=== PATIENT | male | born 1970 | race Caucasian/White ===

== ENCOUNTER 2016-04-17 16:27 | Inpatient (IN) | payer BC ==
[2016-04-18] MEDS ORDERED: BISACODYL 10 MG SUPP PR PRN (16:48)
[2016-04-18] MEDS: ACETAMINOPHEN 325 MG TAB PO PRN (18:08)
--- NOTE | 2016-04-18 18:23 | GHP ---
POST ADMISSION PHYSICIAN EVALUATION AND REHABILITATION TREATMENT PLAN DATE OF ADMISSION: 04/18/2016 DATE OF EVALUATION: 04/18/2016. TIME OF EVALUATION: 1445. REFERRING FACILITY: [facility]. REFERRING PHYSICIAN: Dr. Bryson IMPAIRMENT GROUP: 1.2. DATE OF ONSET: 04/10/2016. 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 CONSULTING PHYSICIANS: He was seen in consultation by Cardiology, Dr. Barnes; Neurology, Dr. Garcia; the neurosurgery service. ETIOLOGIC DIAGNOSIS: Right body involvement (left brain). HISTORY OF PRESENT ILLNESS: The patient was found by his foster son at the bottom of the stairs at home, not able to move or talk. It was unknown how long he had been down. He had no recollection of what had happened. He was taken to [facility]. He had right hemiplegia and expressive aphasia. Brain imaging found a large left middle cerebral artery stroke. It was too late for thrombolytics or intravascular intervention. In the hospital, he had evaluation for etiology of the stroke. Transthoracic and transesophageal echocardiogram ruled out any cardiac abnormalities. Neurovascular imaging ruled out any arterial abnormalities, though the vertebral arteries were not able to be visualized. He had a hypercoagulable workup, which was negative. Given the size of the stroke, which involved the frontal, parietal, and temporal lobes, it was presumed to be embolic. He had a rn cardiac rehab implanted before he discharged from the hospital to evaluate for occult atrial fibrillation. He had brain edema with effacement of sulci, but no [id number] shift. He was followed by Neurosurgery and there was no indication for surgical intervention. He was maintained on hypertonic saline with a serum sodium maintained in the 150s to reduce brain edema. After several days this was liberalized. Other labs and studies in the hospital revealed normal renal function and electrolytes, normal liver function, and normal CBC. PRECAUTIONS: He is a fall risk and he has aspiration precautions. ACTIVE COMORBIDITIES: He has a tier 2 comorbidity of dysphagia, and a tier 3 comorbidity of hemiparesis. PAST MEDICAL HISTORY: 1. Hypothyroidism. 2. HIV. PAST SURGICAL HISTORY: He has not had any surgeries. PREHOSPITAL MEDICATIONS: He was taking levothyroxine 175 mcg p.o. daily, adenosine 400 mg p.o. daily, efavirenz 600 mg p.o. q.h.s., zidovudine 300 mg p.o. b.i.d. His reports that he had an undetectable viral load and a normal CD4 count. ADMISSION MEDICATIONS: 1. Aspirin 325 mg p.o. daily. 2. Atorvastatin 45 mg p.o. q.h.s. 3. Efavirenz 600 mg p.o. q.h.s. 4. Escitalopram 10 mg p.o. daily. 5. Levothyroxine 125 mcg p.o. daily. 6. Didanosine 400 mg p.o. daily. 7. Zidovudine 300 mg p.o. b.i.d. ALLERGIES: There are no known drug allergies. FAMILY HISTORY: Noncontributory. PSYCHOSOCIAL HISTORY: He is and lives with his . He is employed. He is a nonsmoker, a nondrinker, and was living a healthy lifestyle. He and his have foster children. REVIEW OF SYSTEMS: He reports blurred vision in his right eye. He reports some difficulty with swallowing and coughing at times after eating or drinking. He reports inability to move his right arm or right leg. He has sensation, but it is reduced on the right side. In particular, his reports that he felt the needle when a blood draw was done recently. He denies cough other than occasionally when eating. He denies dyspnea. He denies chest pain or palpitations. He denies nausea, vomiting, constipation, or diarrhea. He has urinary incontinence and is unaware of the urge to void and has been treated with a condom catheter. He denies joint pain or joint swelling. He denies skin rash or skin breakdown. Otherwise, a 10-point review of systems is negative. PHYSICAL EXAMINATION: VITALS: Not yet available in the chart. GENERAL: This is a well-nourished, well-developed man, appears his chronologic age, cooperative, and in no acute distress. HEENT: There is a slight right facial droop. Head is atraumatic and normocephalic. Extraocular movements are intact. Pupils are equal, round, and reactive to light. Mucous membranes are dry. There is erythema to the posterior hard palate and soft palate. Dentition is in good condition. He has an uncrowded airway of Mallampati class 1. There is no posterior oropharyngeal mucus. NECK: Supple. HEART: There is a regular rate and rhythm with no murmurs, rubs, or gallops. LUNGS: Clear to auscultation bilaterally. ABDOMEN: Soft, nontender, nondistended, with normoactive bowel sounds and no hepatosplenomegaly. EXTREMITIES: There is no cyanosis, clubbing, or edema. Radial and dorsalis pedis pulses are 2+ bilaterally. NEUROLOGIC: He is alert and oriented x3. Cranial nerves are intact other than right facial weakness and a slight right facial droop. He does not appear to have dysarthria. Motor: He has flaccid paralysis of the right upper and lower extremities. There is no increased tone. He has normal strength in the left upper and lower extremities. He has adequate core strength and is able to arise from supine to seated with minimal assistance. Sensation is intact to light touch on the left side of his body and is reduced but present, including present to double simultaneous stimulation on the right upper and lower extremities. He has a right lower quadrant visual field cut versus hemianopsia. He responds appropriately to commands and appears to have good comprehension. He has moderate to severe expressive aphasia with inability to complete sentences and inability to find words. He is not completely consistent with yes and no. CURRENT LEVEL OF FUNCTION PER THE PREADMISSION SCREEN: Regarding diet, feeding , and swallowing, he was on dysphagia 2 diet with thin liquids and he required supervision for grooming. He required moderate assistance for bathing. He needed assistance for dressing. He was dependent regarding toileting. He was able to use a bedside commode. For bed mobility, he required minimal assistance. For transfers, he required minimal assistance, but with 2 people for safety. He was being transferred by Reba lift. Regarding balance, he was able to sit on the edge of the bed with standby assistance. His endurance was poor. Regarding communication, he was noted to have severe aphasia. Regarding cognition, he was noted to follow simple commands. He needed tactile and verbal cues. He was alert and oriented x2. SAFETY PRECAUTIONS: He is a fall risk and an aspiration risk. IMPRESSION: Mr. Daniels is a 45-year-old man who suffered a large left middle cerebral artery cerebrovascular accident on 04/10/2016. As the time of the stroke was unknown, he was not considered to be in the time window for thrombolytics and there was no target for intravascular intervention. He had brain edema, but did not require surgery. This was successfully treated with hypertonic saline. He has aphasia, appears to be more so on the expressive than on the receptive side. He has comorbid HIV; however, it has been well controlled on HAART. He has hypothyroidism and is stable on thyroid supplementation. He is appropriate for inpatient rehabilitation, where he will benefit from physical therapy and occupational therapy to optimize his mobility and activities of daily living and speech and language pathology to advance to the least restrictive diet and optimize communication. Additionally, will need nursing care regarding bowel and bladder, fall risk, skin integrity, medication management, and education for the patient and his family, and he will require care from the physician regarding risk for DVT, risk for neurologic deterioration, and management of comorbid conditions. His goal is to return home with his family. For a safe discharge, it is expected that he will achieve supervision to modified independence with mobility , ADLs, cognition, swallowing, communication, and medication management. There will be neurologic education for the patient and his family. He will have therapy with physical therapy, occupational therapy, and speech and language pathology for 60 minutes each day for each discipline on 5-7 days of the week. His expected duration of stay is 3-4 weeks. It is anticipated that upon discharge he will continue to benefit from home health services, including speech and language pathology, a nurse's aide, occupational therapy, and physical therapy. ASSESSMENT AND PLAN: 1. Right hemiplegia following left middle cerebral artery cerebrovascular accident. Physical therapy and occupational therapy to optimize mobility and activities of daily living. He comes out of the hospital with a prescription for escitalopram. I will change this to fluoxetine 20 mg p.o. q. day in keeping with the protocol of the FLAME trial, which showed improved recovery of motor function in hemiplegic, strokes, with treatment with fluoxetine. 2. Dysphagia and expressive greater than receptive aphasia, to be assessed and treated per Speech and Language Pathology. 3. Human immunodeficiency virus, well controlled. Continue current medications. 4. Hypothyroidism with adequate supplementation. Continue current levothyroxine dose. 5. Dehydration with dry mucous membranes and erythema to the posterior hard palate and the soft palate. Encourage adequate hydration. Observe for improvement. 6. Unclear etiology of the stroke. He has a rn cardiac rehab. He has followup planned with stem sizer, Dr. Barnes, in 1 week, though this is likely only to check the status of his incision from the implantation of the rn cardiac rehab, and then has a followup also in 3 weeks which presumably is to evaluate for any occult atrial fibrillation. He is being treated with aspirin 325 mg p.o. q. day , as well as atorvastatin as stroke preventive. 7. DVT prophylaxis. He will be treated with enoxaparin 40 mg subcutaneous q. day until his mobility improves or sufficient time has passed since the stroke to have reduced risk of deep venous thrombosis. 8. Urinary incontinence. Continue condom catheter initially. He will have the rehabilitation bladder program with timed voiding q.2 hours and with ultrasound bladder scans to ensure complete voiding. It is hoped that he will recover continence and not need the condom catheter. 9. Right hemianopsia versus visual field cut. He will have further vision testing by occupational therapy. His subjective experience of blurred vision is most likely related to the cerebrovascular accident. The other possibility would be retinal involvement due to the didanosine. He will be observed for improvement. /[id number]/MODL MTDD
[2016-04-18] MEDS: ATORVASTATIN CALCIUM 40 MG TAB PO SCH (20:50)
[2016-04-18] MEDS: EFAVIRENZ 600 MG TAB PO SCH (20:51)
[2016-04-18] MEDS: ZIDOVUDINE 300 MG PO SCH (20:52)
[2016-04-18] MEDS ORDERED: ZIDOVUDINE 300 MG PO SCH (21:00)
[2016-04-18] MEDS ORDERED: EFAVIRENZ 600 MG TAB PO SCH (21:00)
[2016-04-19] MEDS: LEVOTHYROXINE 25 MCG TAB PO SCH (05:53)
[2016-04-19] MEDS: LEVOTHYROXINE 150 MCG TAB PO SCH (05:53)
[2016-04-19] MEDS: DIDANOSINE 400 MG PO SCH (05:54)
[2016-04-19] MEDS ORDERED: LEVOTHYROXINE 175 MCG TAB PO SCH (06:00)
[2016-04-19] MEDS ORDERED: DIDANOSINE 400 MG PO SCH (07:30)
[2016-04-19] MEDS: ASPIRIN 325 MG TAB PO SCH (09:41)
[2016-04-19] MEDS: ENOXAPARIN 40 MG/0.4 ML SYR SC SCH (09:41)
[2016-04-19] MEDS: FLUoxetine 20 MG CAP PO SCH (09:41)
[2016-04-19] MEDS: ZIDOVUDINE 300 MG PO SCH ×2 (09:42→20:25)
[2016-04-19] MEDS: SENNOSIDES 1 TAB PO PRN (09:48)
--- NOTE | 2016-04-19 10:23 | PDOREHIP ---
Admission [facility] - Admission - 3 Day Assessment Period Admission Date/Day 1: 04/18/16 Day 2: 04/19/16 Day 3: 04/20/16 - Active Diagnoses Comorbidities and Co-existing Conditions at Admission: [id number]. None of the Above - Skin Conditions Unhealed Pressure Ulcer (1 or more/Stage 1 or >)-Admission: 0. No
--- NOTE | 2016-04-19 10:23 | SOAPPROG ---
JOHN Progress Note Assessment/Plan: Assessment: 1. Right hemiplegia following left middle cerebral artery cerebrovascular accident. Physical therapy and occupational therapy to optimize mobility and activities of daily living. He comes out of the hospital with a prescription for escitalopram. I will change this to fluoxetine 20 mg p.o. q. day in keeping with the protocol of the FLAME trial, which showed improved recovery of motor function in hemiplegic, strokes, with treatment with fluoxetine. 2. Dysphagia and expressive greater than receptive aphasia, to be assessed and treated per Speech and Language Pathology. 3. Human immunodeficiency virus, well controlled. Continue current medications. 4. Hypothyroidism with adequate supplementation. Continue current levothyroxine dose. 5. Dehydration with dry mucous membranes and erythema to the posterior hard palate and the soft palate. Encourage adequate hydration. Observe for improvement. 6. Unclear etiology of the stroke. He has a plastic extruding machine operator. He has followup planned with district agent, Dr. Barnes, in 1 week, though this is likely only to check the status of his incision from the implantation of the plastic extruding machine operator, and then has a followup also in 3 weeks which presumably is to evaluate for any occult atrial fibrillation. He is being treated with aspirin 325 mg p.o. q. day , as well as atorvastatin as stroke preventive. 7. DVT prophylaxis. He will be treated with enoxaparin 40 mg subcutaneous q. day until his mobility improves or sufficient time has passed since the stroke to have reduced risk of deep venous thrombosis. 8. Urinary incontinence. Continue condom catheter initially. He will have the rehabilitation bladder program with timed voiding q.2 hours and with ultrasound bladder scans to ensure complete voiding. It is hoped that he will recover continence and not need the condom catheter. 9. Right hemianopsia versus visual field cut. He will have further vision testing by occupational therapy. His subjective experience of blurred vision is most likely related to the cerebrovascular accident. The other possibility would be retinal involvement due to the didanosine. He will be observed for improvement. Plan: 04/19/16 10:23 Objective: Vital Signs Temp Pulse Resp BP Pulse Ox 36.4 C 58 L 16 117/79 96 04/19/16 05:53 04/19/16 05:53 04/19/16 05:53 04/19/16 05:53 04/19/16 05:53 04/18/16 04/19/16 04/20/16 05:59 05:59 05:59 Intake Total 320 Output Total 1350 Balance -1030 ICD10 Worksheet Patient Problems: Problems Problem Status Onset Aphasia due to recent cerebrovascular accident (CVA) Acute Cerebrovascular accident (CVA) due to occlusion of left middle cerebral artery Acute Hemiplegia and hemiparesis following cerebral infarction affecting right dominant side Acute
--- NOTE | 2016-04-19 10:44 | SOAPPROG ---
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 Physical therapy and occupational therapy to optimize mobility and activities of daily living. Escitalopram started in hospital, changed on to fluoxetine 20 mg p.o. q. day in keeping with the protocol of the FLAME trial, which showed improved recovery of motor function in hemiplegic strokes. * Dysphagia and expressive greater than receptive aphasia, to be assessed and treated per Speech and Language Pathology. * Cough, productive, CXR c/w bronchitis, CBC with leukocytosis andf left shift. Treat with azithromycin 5 days. * Human immunodeficiency virus, well controlled. Continue current medications. * Hypothyroidism with adequate supplementation. Continue current levothyroxine dose. * Dehydration with dry mucous membranes and erythema to the posterior hard palate and the soft palate. Improving. Encourage adequate hydration. * Unclear etiology of the stroke. He has a athletic monitor. He has followup planned with personal injury law specialist, Dr. Barnes, in 1 week, though this is likely only to check the status of his incision from the implantation of the athletic monitor, and then has a followup also in 3 weeks which presumably is to evaluate for any occult atrial fibrillation. He is being treated with aspirin 325 mg p.o. q. day , as well as atorvastatin as stroke preventive. * DVT prophylaxis. He will be treated with enoxaparin 40 mg subcutaneous q. day until his mobility improves or sufficient time has passed since the stroke to have reduced risk of deep venous thrombosis. * Urinary incontinence. Continue condom catheter initially. PVR 110; unlikely overflow incontinence. Continue rehabilitation bladder program with timed voiding q.2 hours and with ultrasound bladder scans to ensure complete voiding. * Right hemianopsia versus visual field cut. He will have further vision testing by occupational therapy. His subjective experience of blurred vision is most likely related to the cerebrovascular accident. The other possibility would be retinal involvement due to the didanosine. He will be observed for improvement. 04/19/16 21:38 Subjective: C/O cough, +/-dyspnea. No fevers/chills. Feels thirsty. Objective: Vital Signs Temp Pulse Resp BP Pulse Ox 36.4 C 58 L 16 117/79 96 04/19/16 05:53 04/19/16 05:53 04/19/16 05:53 04/19/16 05:53 04/19/16 05:53 04/18/16 04/19/16 04/20/16 05:59 05:59 05:59 Intake Total 320 Output Total 1350 Balance -1030 Physical Exam - Physical Exam General Appearance: WD/WN, alert, no apparent distress EENT: other (MMs moist), No rhinorrhea, No pharyngeal erythema Respiratory: decreased breath sounds (Decreased RLL/RML), No crackles, No rhonchi, No wheezing Cardiac/Chest: regular rate, rhythm, No edema Skin: normal color, warm/dry Neuro/Psych: alert, normal mood/affect, aphasia (Expressive), facial droop ( Right side), motor weakness (RUE and RLE flaccid paralysis.) ICD10 Worksheet Patient Problems: Problems Problem Status Onset Aphasia due to recent cerebrovascular accident (CVA) Acute Cerebrovascular accident (CVA) due to occlusion of left middle cerebral artery Acute Hemiplegia and hemiparesis following cerebral infarction affecting right dominant side Acute
[2016-04-19 19:14] LABS: ALANINE AMINOTRANSFERASE 111 IU/L (21-72); ALBUMIN 4.1 g/dL (3.5-5.0); ALKALINE PHOSPHATASE 159 IU/L (38-126); ANION GAP 11 mEq/L (8-16); ASPARTATE AMINOTRANSFERASE 129 IU/L (17-59); BILIRUBIN,TOTAL 0.7 mg/dL (0.1-1.4); CALCIUM 9.2 mg/dL (8.5-10.4); CARBON DIOXIDE 27 mEq/l (22-31); CHLORIDE 100 mEq/L (97-110); CREATININE 0.7 mg/dL (0.7-1.3); GLOMERULAR FILTRATION RATE > 60; GLUCOSE 84 mg/dL (70-100); POTASSIUM 4.4 mEq/L (3.5-5.2); SODIUM 138 mEq/L (134-144); TOTAL PROTEIN 7.6 g/dL (6.3-8.2)
[2016-04-19 19:31] LABS: ABSOLUTE IMMATURE GRANULOCYTES 0.11 10^3/uL (0.00-0.10); ADD DIFF? NO; ADD MORPH? NO; ADD SCAN? NO; ATYPICAL LYMPHOCYTE FLAG 40 (0-99); FRAGMENT RBC FLAG 0 (0-99); HEMATOCRIT 43.5 % (40.0-51.0); HEMOGLOBIN 16.3 g/dL (13.7-17.5); LEFT SHIFT FLG 0 (0-99); MEAN CELL HEMOGLOBIN 38.3 pg (27.9-34.1); MEAN CELL VOLUME 102.1 fL (81.5-99.8); MEAN PLATELET VOLUME 10.7 fL (8.7-11.7); PLATELET CLUMPS FLAG 10 (0-99); PLATELET COUNT 299 10^3/uL (150-400); RED BLOOD CELL COUNT 4.26 10^6/uL (4.40-6.38); RED CELL DISTRIBUTION WIDTH 12.9 % (11.5-15.2)
[2016-04-19 19:37] LABS: LIPEMIA HEMOLYSIS FLAG 100 (0-99)
[2016-04-19 19:38] LABS: MEAN CELL HEMOGLOBIN CONCENTR. 37.5 g/dL (32.4-36.7)
[2016-04-19] MEDS: ATORVASTATIN CALCIUM 40 MG TAB PO SCH (20:25)
[2016-04-19] MEDS: EFAVIRENZ 600 MG TAB PO SCH (20:26)
[2016-04-19] MEDS ORDERED: AZITHROMYCIN 250 MG TAB PO ONE (21:31)
[2016-04-20] MEDS: LEVOTHYROXINE 150 MCG TAB PO SCH (05:51)
[2016-04-20] MEDS: LEVOTHYROXINE 25 MCG TAB PO SCH (05:51)
[2016-04-20] MEDS: DIDANOSINE 400 MG PO SCH (05:51)
[2016-04-20] MEDS: ACETAMINOPHEN 325 MG TAB PO PRN ×2 (08:43→15:16)
[2016-04-20] MEDS: AZITHROMYCIN 250 MG TAB PO SCH (08:43)
[2016-04-20] MEDS: FLUoxetine 20 MG CAP PO SCH (08:44)
--- NOTE | 2016-04-20 08:45 | SOAPPROG ---
SOAP Progress Note Assessment/Plan: Assessment: 45 yo M s/p large MCA CVA on 04/10/16 of unclear etiology: MEJIA and new tongue deviation to L this morning 04/20/16, not present on previous exams or per [employer]. Send to ED for head CT to r/o hemorrhagic transformation. Hold ASA and enoxaparin. 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 Physical therapy and occupational therapy to optimize mobility and activities of daily living. Escitalopram started in hospital, changed on to fluoxetine 20 mg p.o. q. day in keeping with the protocol of the FLAME trial, which showed improved recovery of motor function in hemiplegic strokes. * Dysphagia and expressive greater than receptive aphasia, to be assessed and treated per Speech and Language Pathology. * Cough, productive, CXR c/w bronchitis, CBC with leukocytosis andf left shift. Treat with azithromycin 5 days. * Human immunodeficiency virus, well controlled. Continue current medications. * Hypothyroidism with adequate supplementation. Continue current levothyroxine dose. * Dehydration with dry mucous membranes and erythema to the posterior hard palate and the soft palate. Improving. Encourage adequate hydration. * Unclear etiology of the stroke. He has a awake overnight monitor. He has followup planned with residential framing carpenter, Dr. Barnes, in 1 week, though this is likely only to check the status of his incision from the implantation of the awake overnight monitor, and then has a followup also in 3 weeks which presumably is to evaluate for any occult atrial fibrillation. He is being treated with aspirin 325 mg p.o. q. day , as well as atorvastatin as stroke preventive. * Transaminase elevation. Likely due to antiretrovirals, randy efavirenz and didanosine; not likely due to zidovudine. Mild, no change in medications indicated. * DVT prophylaxis. He will be treated with enoxaparin 40 mg subcutaneous q. day until his mobility improves or sufficient time has passed since the stroke to have reduced risk of deep venous thrombosis. * Urinary incontinence. Continue condom catheter initially. PVR 110; unlikely overflow incontinence. Continue rehabilitation bladder program with timed voiding q.2 hours and with ultrasound bladder scans to ensure complete voiding. * Right hemianopsia versus visual field cut. He will have further vision testing by occupational therapy. His subjective experience of blurred vision is most likely related to the cerebrovascular accident. The other possibility would be retinal involvement due to the didanosine. He will be observed for improvement. 04/20/16 08:48 Subjective: C/O MEJIA frontal, since last night. Vague on whether pounding or steady. No nausea. Noted by nurse this morning; nurse also noted tongue deviation. Objective: Vital Signs Temp Pulse Resp BP Pulse Ox 36.9 C 67 18 113/80 96 04/20/16 08:00 04/20/16 08:00 04/20/16 08:00 04/20/16 08:00 04/20/16 08:00 Laboratory Results 04/19/16 17:57 04/19/16 17:57 04/19/16 04/20/16 04/21/16 05:59 05:59 05:59 Intake Total 320 1000 Output Total 1350 2250 Balance -1030 -1250 Physical Exam - Physical Exam General Appearance: WD/WN, alert, no apparent distress Respiratory: No respiratory distress, No accessory muscle use Neuro/Psych: alert, normal mood/affect, abnormal hairspring studder II-XII (New tongue deviation to L.) ICD10 Worksheet Patient Problems: Problems Problem Status Onset Aphasia due to recent cerebrovascular accident (CVA) Acute Cerebrovascular accident (CVA) due to occlusion of left middle cerebral artery Acute Hemiplegia and hemiparesis following cerebral infarction affecting right dominant side Acute
[2016-04-20] MEDS: ENOXAPARIN 40 MG/0.4 ML SYR SC SCH (08:47)
[2016-04-20] MEDS: ASPIRIN 325 MG TAB PO SCH (08:47)
[2016-04-20] MEDS: ZIDOVUDINE 300 MG PO SCH ×3 (08:48→22:01)
[2016-04-20] MEDS: EFAVIRENZ 600 MG TAB PO SCH (22:00)
[2016-04-20] MEDS: ATORVASTATIN CALCIUM 40 MG TAB PO SCH (22:01)
[2016-04-21] MEDS: LEVOTHYROXINE 125 MCG TAB PO SCH (05:47)
[2016-04-21] MEDS: DIDANOSINE 400 MG PO SCH (05:56)
[2016-04-21 08:51] LABS: HEMATOCRIT 40.5 % (40.0-51.0)
[2016-04-21] MEDS: ENOXAPARIN 40 MG/0.4 ML SYR SC SCH (09:31)
[2016-04-21] MEDS: ASPIRIN 325 MG TAB PO SCH (09:31)
[2016-04-21] MEDS: AZITHROMYCIN 250 MG TAB PO SCH (09:31)
[2016-04-21] MEDS: FLUoxetine 20 MG CAP PO SCH (09:32)
[2016-04-21] MEDS: ZIDOVUDINE 300 MG PO SCH ×2 (09:32→20:56)
--- NOTE | 2016-04-21 10:54 | SOAPPROG ---
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 Physical therapy and occupational therapy to optimize mobility and activities of daily living. Escitalopram started in hospital, changed on to fluoxetine 20 mg p.o. q. day in keeping with the protocol of the FLAME trial, which showed improved recovery of motor function in hemiplegic strokes. * Heamcult stool was negative. H/H today was 15/40.5 compared to 16.3/43.5 0n . Pulse rate is slightly increased but not tachycardic. BP 99/62 compared to 115/66 yesterday am. ? dilutional vs non -GI bleed. Recheck H/H in am. * Dysphagia and expressive greater than receptive aphasia, to be assessed and treated per Speech and Language Pathology. He is being advanced to level [address] * Cough, productive, CXR c/w bronchitis, CBC with leukocytosis andf left shift. Treat with azithromycin 5 days. * Human immunodeficiency virus, well controlled. Continue current medications. * Hypothyroidism with adequate supplementation. Continue current levothyroxine dose. * Dehydration with dry mucous membranes and erythema to the posterior hard palate and the soft palate. Improving. Encourage adequate hydration. * Unclear etiology of the stroke. He has a residential monitor. He has followup planned with broiler chef or cook, Dr. Barnes, in 1 week, though this is likely only to check the status of his incision from the implantation of the residential monitor, and then has a followup also in 3 weeks which presumably is to evaluate for any occult atrial fibrillation. He is being treated with aspirin 325 mg p.o. q. day , as well as atorvastatin as stroke preventive. * Transaminase elevation. Likely due to antiretrovirals, randy efavirenz and didanosine; not likely due to zidovudine. Mild, no change in medications indicated. * DVT prophylaxis. He will be treated with enoxaparin 40 mg subcutaneous q. day until his mobility improves or sufficient time has passed since the stroke to have reduced risk of deep venous thrombosis. * Urinary incontinence. Continue condom catheter initially. PVR 110; unlikely overflow incontinence. Continue rehabilitation bladder program with timed voiding q.2 hours and with ultrasound bladder scans to ensure complete voiding. * Right hemianopsia versus visual field cut. He will have further vision testing by occupational therapy. His subjective experience of blurred vision is most likely related to the cerebrovascular accident. The other possibility would be retinal involvement due to the didanosine. He will be observed for improvement. Plan: 04/21/16 10:58 Subjective: No complaints per patient or nursing staff. Objective: Vital Signs Temp Pulse Resp BP Pulse Ox 36.4 C 75 16 99/62 L 99 04/21/16 08:00 04/21/16 08:00 04/21/16 08:00 04/21/16 08:00 04/21/16 08:00 Laboratory Results 04/21/16 06:30 04/19/16 17:57 04/20/16 04/21/16 04/22/16 05:59 05:59 05:59 Intake Total 1000 1166 534 Output Total 2250 Balance -1250 1166 534 Physical Exam - Physical Exam General Appearance: alert, no apparent distress EENT: No scleral icterus (R), No scleral icterus (L) Neck: supple, normal inspection Respiratory: lungs clear, normal breath sounds Cardiac/Chest: No edema, No JVD Abdomen: normal bowel sounds, non-tender, soft Skin: normal color Extremities: No normal range of motion, No calf tenderness (Right shoulder subluxation, tender to palpation. ), No swelling, No Marcie's sign Neuro/Psych: motor weakness, depressed affect (Dense right hemiplegia. Expressive greater than receptive aphasia. ), No normal mood/affect ICD10 Worksheet Patient Problems: Problems Problem Status Onset Aphasia due to recent cerebrovascular accident (CVA) Acute Cerebrovascular accident (CVA) due to occlusion of left middle cerebral artery Acute Hemiplegia and hemiparesis following cerebral infarction affecting right dominant side Acute
[2016-04-21] MEDS: EFAVIRENZ 600 MG TAB PO SCH (20:56)
[2016-04-21] MEDS: ATORVASTATIN CALCIUM 40 MG TAB PO SCH (20:56)
[2016-04-22] MEDS: LEVOTHYROXINE 25 MCG TAB PO SCH (05:33)
[2016-04-22] MEDS: LEVOTHYROXINE 150 MCG TAB PO SCH (05:34)
[2016-04-22] MEDS: DIDANOSINE 400 MG PO SCH (05:34)
[2016-04-22] MEDS: ZIDOVUDINE 300 MG PO SCH ×2 (09:04→20:45)
[2016-04-22] MEDS: FLUoxetine 20 MG CAP PO SCH (09:06)
[2016-04-22] MEDS: ASPIRIN 325 MG TAB PO SCH (09:06)
[2016-04-22] MEDS: AZITHROMYCIN 250 MG TAB PO SCH (09:07)
--- NOTE | 2016-04-22 10:02 | SOAPPROG ---
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 Physical therapy and occupational therapy to optimize mobility and activities of daily living. Escitalopram started in hospital, changed on to fluoxetine 20 mg p.o. q. day in keeping with the protocol of the FLAME trial, which showed improved recovery of motor function in hemiplegic strokes. * Heamcult stool was negative. H/H 04/21 was 15/40.5 compared to 16.3/43.5 0n 04/20. Pulse rate is 86 BP 118/70. ? dilutional vs non -GI bleed. Recheck H/H in am. * Dysphagia and expressive greater than receptive aphasia, to be assessed and treated per Speech and Language Pathology. He is being advanced to level [address] * Cough, productive, CXR c/w bronchitis, CBC with leukocytosis andf left shift. Treat with azithromycin 5 days. * Human immunodeficiency virus, well controlled. Continue current medications. * Hypothyroidism with adequate supplementation. Continue current levothyroxine dose. * Dehydration with dry mucous membranes and erythema to the posterior hard palate and the soft palate. Will begin IVF 1000 cc 75 cc/hr * Unclear etiology of the stroke. He has a front desk monitor. He has followup planned with pickle cutter, Dr. Barnes, in 1 week, though this is likely only to check the status of his incision from the implantation of the front desk monitor, and then has a followup also in 3 weeks which presumably is to evaluate for any occult atrial fibrillation. He is being treated with aspirin 325 mg p.o. q. day , as well as atorvastatin as stroke preventive. * Transaminase elevation. Likely due to antiretrovirals, randy efavirenz and didanosine; not likely due to zidovudine. Mild, no change in medications indicated. * DVT prophylaxis. He will be treated with enoxaparin 40 mg subcutaneous q. day until his mobility improves or sufficient time has passed since the stroke to have reduced risk of deep venous thrombosis. * Urinary incontinence. Continue condom catheter initially. Continue rehabilitation bladder program with timed voiding q.2 hours and with ultrasound bladder scans to ensure complete voiding. * Right hemianopsia versus visual field cut. He will have further vision testing by occupational therapy. His subjective experience of blurred vision is most likely related to the cerebrovascular accident. The other possibility would be retinal involvement due to the didanosine. He will be observed for improvement. Plan: 04/21/16 10:58 04/22/16 10:03 Subjective: No complaints per patient or nursing staff. Objective: Vital Signs Temp Pulse Resp BP Pulse Ox 36.4 C 67 16 118/70 95 04/22/16 06:55 04/22/16 06:55 04/22/16 06:55 04/22/16 06:55 04/22/16 06:55 Laboratory Results 04/21/16 06:30 04/19/16 17:57 04/21/16 04/22/16 04/23/16 05:59 05:59 05:59 Intake Total 1166 784 Output Total 1100 Balance 1166 -316 Physical Exam - Physical Exam General Appearance: alert, no apparent distress EENT: other (mucuosa dry) Neck: non-tender, full range of motion Respiratory: lungs clear, No crackles Abdomen: normal bowel sounds, non-tender, soft Skin: normal color, warm/dry Extremities: No calf tenderness (Neurological exam unchanged from previous; dense RUE and RLE hemiplegia) ICD10 Worksheet Patient Problems: Problems Problem Status Onset Aphasia due to recent cerebrovascular accident (CVA) Acute Cerebrovascular accident (CVA) due to occlusion of left middle cerebral artery Acute Hemiplegia and hemiparesis following cerebral infarction affecting right dominant side Acute Headache Acute
[2016-04-22] MEDS: ENOXAPARIN 40 MG/0.4 ML SYR SC SCH (10:25)
[2016-04-22] MEDS: NS 1,000 ML IV SCH ×2 (10:26→22:47)
[2016-04-22 10:38] LABS: ABSOLUTE IMMATURE GRANULOCYTES 0.07 10^3/uL (0.00-0.10); ADD DIFF? NO; ADD MORPH? NO; ADD SCAN? NO; ATYPICAL LYMPHOCYTE FLAG 30 (0-99); FRAGMENT RBC FLAG 0 (0-99); HEMATOCRIT 39.8 % (40.0-51.0); HEMOGLOBIN 14.6 g/dL (13.7-17.5); LEFT SHIFT FLG 0 (0-99); LIPEMIA HEMOLYSIS FLAG 90 (0-99); MEAN CELL HEMOGLOBIN 39.5 pg (27.9-34.1); MEAN CELL HEMOGLOBIN CONCENTR. 36.7 g/dL (32.4-36.7); MEAN CELL VOLUME 107.6 fL (81.5-99.8); MEAN PLATELET VOLUME 10.4 fL (8.7-11.7); PLATELET CLUMPS FLAG 10 (0-99); PLATELET COUNT 326 10^3/uL (150-400); RED CELL DISTRIBUTION WIDTH 13.4 % (11.5-15.2)
[2016-04-22] MEDS: EFAVIRENZ 600 MG TAB PO SCH (20:44)
[2016-04-22] MEDS: ATORVASTATIN CALCIUM 40 MG TAB PO SCH (20:46)
[2016-04-23] MEDS: DIDANOSINE 400 MG PO SCH (05:58)
[2016-04-23] MEDS: LEVOTHYROXINE 125 MCG TAB PO SCH (05:58)
[2016-04-23] MEDS: ZIDOVUDINE 300 MG PO SCH ×2 (08:46→20:32)
[2016-04-23] MEDS: AZITHROMYCIN 250 MG TAB PO SCH (08:48)
[2016-04-23] MEDS: FLUoxetine 20 MG CAP PO SCH (08:49)
[2016-04-23] MEDS: ASPIRIN 325 MG TAB PO SCH (08:49)
[2016-04-23] MEDS: ENOXAPARIN 40 MG/0.4 ML SYR SC SCH (08:50)
--- NOTE | 2016-04-23 09:50 | SOAPPROG ---
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 Physical therapy and occupational therapy to optimize mobility and activities of daily living. Escitalopram started in hospital, changed on to fluoxetine 20 mg p.o. q. day in keeping with the protocol of the FLAME trial, which showed improved recovery of motor function in hemiplegic strokes. * MEJIA and increased R tongue deviation 04/20/16: head CT w/out bleed. * Dysphagia and expressive greater than receptive aphasia, to be assessed and treated per Speech and Language Pathology. Able to swallow pills, including efavirenz capsule. * Cough, productive, CXR c/w bronchitis, CBC with leukocytosis and left shift. Treat with azithromycin 5 days. Leukocytosis resolved 04/22/16.' * Anemia, macrocytic. Recheck 3 days 04/26/16 with B12, folate, retics. * Human immunodeficiency virus, well controlled. Continue current medications. * Hypothyroidism with adequate supplementation. Continue current levothyroxine dose. * Dehydration with dry mucous membranes and erythema to the posterior hard palate and the soft palate. Improving. Encourage adequate hydration. * Unclear etiology of the stroke. He has a property assessment monitor. He has followup planned with yield engineer, Dr. Barnes, in 1 week, though this is likely only to check the status of his incision from the implantation of the property assessment monitor, and then has a followup also in 3 weeks which presumably is to evaluate for any occult atrial fibrillation. He is being treated with aspirin 325 mg p.o. q. day , as well as atorvastatin as stroke preventive. * Transaminase elevation. Likely due to antiretrovirals, randy efavirenz and didanosine; not likely due to zidovudine. Mild, no change in medications indicated. Hep C neg. * DVT prophylaxis. He will be treated with enoxaparin 40 mg subcutaneous q. day until his mobility improves or sufficient time has passed since the stroke to have reduced risk of deep venous thrombosis. * Urinary incontinence. Continue condom catheter initially. PVR 110; unlikely overflow incontinence. Continue rehabilitation bladder program with timed voiding q.2 hours and with ultrasound bladder scans to ensure complete voiding. * Right hemianopsia versus visual field cut. He will have further vision testing by occupational therapy. His subjective experience of blurred vision is most likely related to the cerebrovascular accident. The other possibility would be retinal involvement due to the didanosine. He will be observed for improvement. 04/23/16 12:05 Subjective: No complaints. Working wit TEAROOM HOSTESS over breakfast. Able to swallow pills. Denies f/c, dyspnea/cough. Objective: Vital Signs Temp Pulse Resp BP Pulse Ox 36.6 C 57 L 16 102/64 98 04/23/16 07:11 04/23/16 07:11 04/23/16 07:11 04/23/16 07:11 04/23/16 07:11 Laboratory Results 04/22/16 08:00 04/19/16 17:57 04/22/16 04/23/16 04/24/16 05:59 05:59 05:59 Intake Total 784 1821 600 Output Total 1100 2300 Balance -316 -256 600 Physical Exam - Physical Exam General Appearance: WD/WN, alert, no apparent distress Respiratory: No respiratory distress, No accessory muscle use Skin: normal color, warm/dry Neuro/Psych: alert, normal mood/affect, motor weakness (RUE flaccid paralysis) ICD10 Worksheet Patient Problems: Problems Problem Status Onset Aphasia due to recent cerebrovascular accident (CVA) Acute Cerebrovascular accident (CVA) due to occlusion of left middle cerebral artery Acute Hemiplegia and hemiparesis following cerebral infarction affecting right dominant side Acute Headache Acute
[2016-04-23] MEDS: EFAVIRENZ 600 MG TAB PO SCH (20:08)
[2016-04-23] MEDS: ATORVASTATIN CALCIUM 40 MG TAB PO SCH (20:08)
[2016-04-24] MEDS: LEVOTHYROXINE 25 MCG TAB PO SCH (05:57)
[2016-04-24] MEDS: LEVOTHYROXINE 150 MCG TAB PO SCH (05:58)
[2016-04-24] MEDS: DIDANOSINE 400 MG PO SCH (05:59)
[2016-04-24] MEDS: FLUoxetine 20 MG CAP PO SCH (09:21)
[2016-04-24] MEDS: ENOXAPARIN 40 MG/0.4 ML SYR SC SCH (09:21)
[2016-04-24] MEDS: ASPIRIN 325 MG TAB PO SCH (09:21)
[2016-04-24] MEDS: ZIDOVUDINE 300 MG PO SCH ×2 (09:22→20:44)
[2016-04-24 13:58] LABS: HIV-1 RNA PCR < 20.00 copy/mL (<20)
[2016-04-24] MEDS ORDERED: PREPARATION H 51 GM CRTUBE PR PRN (14:54)
--- NOTE | 2016-04-24 15:19 | SOAPPROG ---
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 Initial FIM 30 on 04/20/16. Good L strength; able to stand on L leg; min to mod A transferring. Physical therapy and occupational therapy to optimize mobility and activities of daily living. Escitalopram started in hospital, changed on 04/18/16 to fluoxetine 20 mg p.o. q. day in keeping with the protocol of the FLAME trial, which showed improved recovery of motor function in hemiplegic strokes. * MEJIA and increased R tongue deviation 04/20/16: head CT w/out bleed. * Dysphagia and expressive greater than receptive aphasia. Continue Speech and Language Pathology. Able to swallow pills, including efavirenz capsule. * Cough, productive, CXR c/w bronchitis, CBC with leukocytosis and left shift. Treat with azithromycin 5 days. Leukocytosis resolved 04/22/16. * Anemia, macrocytic. Recheck 3 days 04/26/16 with B12, folate, retics. * Human immunodeficiency virus, well controlled. Continue current medications. * Hypothyroidism with adequate supplementation. Continue current levothyroxine dose. * Dehydration with dry mucous membranes and erythema to the posterior hard palate and the soft palate. Resolved. Encourage adequate hydration. * Unclear etiology of the stroke. He has a bus driver/monitor. He has followup planned with dashboard developer, Dr. Barnes, in 1 week, though this is likely only to check the status of his incision from the implantation of the bus driver/monitor, and then has a followup also in 3 weeks which presumably is to evaluate for any occult atrial fibrillation. He is being treated with aspirin 325 mg p.o. q. day , as well as atorvastatin as stroke preventive. * Transaminase elevation. Likely due to antiretrovirals, randy efavirenz and didanosine; not likely due to zidovudine. Mild, no change in medications indicated. Hep C neg. * DVT prophylaxis. He will be treated with enoxaparin 40 mg subcutaneous q. day until his mobility improves or sufficient time has passed since the stroke to have reduced risk of deep venous thrombosis. * Urinary incontinence. Continue condom catheter initially. PVR 110; unlikely overflow incontinence. Continue rehabilitation bladder program with timed voiding q.2 hours and with ultrasound bladder scans to ensure complete voiding. * Right hemianopsia versus visual field cut. He will have further vision testing by occupational therapy. His subjective experience of blurred vision is most likely related to the cerebrovascular accident. The other possibility would be retinal involvement due to the didanosine. He will be observed for improvement. Unclear if he will become ambulatory or if goal will be to optimize function from wheelchair level. Many stairs in the house. Expect LOS 4 - 6 weeks. 04/24/16 15:19 Subjective: No complaints. Denies pain, f/c,cough/dyspnea. Objective: Vital Signs Temp Pulse Resp BP Pulse Ox 37.0 C 62 14 101/58 L 96 04/24/16 06:20 04/24/16 06:20 04/24/16 06:20 04/24/16 06:20 04/24/16 06:20 Laboratory Results 04/22/16 08:00 04/19/16 17:57 04/23/16 04/24/16 04/25/16 05:59 05:59 05:59 Intake Total 1821 1072 1100 Output Total 2300 500 1150 Balance -479 572 -50 Physical Exam - Physical Exam General Appearance: WD/WN, alert, no apparent distress Respiratory: No respiratory distress, No accessory muscle use Cardiac/Chest: No edema Skin: normal color, warm/dry Neuro/Psych: alert, normal mood/affect, aphasia (Expressive), motor weakness ( RUE & RLE hemiplegia. Mild flexor tome R hamstring.) ICD10 Worksheet Patient Problems: Problems Problem Status Onset Aphasia due to recent cerebrovascular accident (CVA) Acute Cerebrovascular accident (CVA) due to occlusion of left middle cerebral artery Acute Hemiplegia and hemiparesis following cerebral infarction affecting right dominant side Acute Headache Acute
[2016-04-24] MEDS: POLYETHYLENE GLYCOL 3350 17 GM PKT PO SCH (15:36)
[2016-04-24] MEDS: SENNOSIDES 1 TAB PO PRN (15:36)
[2016-04-24] MEDS: EFAVIRENZ 600 MG TAB PO SCH (20:43)
[2016-04-24] MEDS: ATORVASTATIN CALCIUM 40 MG TAB PO SCH (20:45)
[2016-04-25] MEDS: LEVOTHYROXINE 125 MCG TAB PO SCH (06:07)
[2016-04-25] MEDS: DIDANOSINE 400 MG PO SCH (06:08)
[2016-04-25] MEDS: ASPIRIN 325 MG TAB PO SCH (09:23)
[2016-04-25] MEDS: POLYETHYLENE GLYCOL 3350 17 GM PKT PO SCH (09:23)
[2016-04-25] MEDS: FLUoxetine 20 MG CAP PO SCH (09:23)
[2016-04-25] MEDS: ENOXAPARIN 40 MG/0.4 ML SYR SC SCH (09:23)
[2016-04-25] MEDS: ZIDOVUDINE 300 MG PO SCH ×2 (09:24→20:07)
--- NOTE | 2016-04-25 13:13 | SOAPPROG ---
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 Initial FIM 30 on 04/20/16; improved to 49 on 04/25/16. Good L strength ; able to stand on L leg; min to mod A transferring. Dressing SBA to min A. Poor carry-over of techniques. Continue physical therapy and occupational therapy to optimize mobility and activities of daily living. Escitalopram started in hospital, changed on 04/18/16 to fluoxetine 20 mg p.o. q. day in keeping with the protocol of the FLAME trial, which showed improved recovery of motor function in hemiplegic strokes. * MEJIA and increased R tongue deviation 04/20/16: head CT w/out bleed. * Dysphagia and expressive greater than receptive aphasia. On regular texture diet. Expressive aphasia is severe; receptive is moderate. Continue Speech and Language Pathology. Able to swallow pills, including efavirenz capsule. * Urinary incontinence. Continue condom catheter at night. PVR 36; unlikely overflow incontinence. Continue rehabilitation bladder program with timed voiding q.2 hours and with ultrasound bladder scans to ensure complete voiding. Check UA. * Cough, productive, CXR c/w bronchitis, CBC with leukocytosis and left shift. Treated with azithromycin 5 days. Cough is resolved. * Anemia, macrocytic. Recheck 3 days 04/26/16 with B12, folate, retics. * Human immunodeficiency virus, well controlled. Continue current medications. * Hypothyroidism with adequate supplementation. Continue current levothyroxine dose. * Dehydration with dry mucous membranes and erythema to the posterior hard palate and the soft palate. Resolved after IV hydration 04/22/16. Encourage adequate PO hydration. * Unclear etiology of the stroke. He has a environmental monitoring technician. He has followup planned with validation consultant, Dr. Barnes, in 1 week, though this is likely only to check the status of his incision from the implantation of the environmental monitoring technician, and then has a followup also in 3 weeks which presumably is to evaluate for any occult atrial fibrillation. He is being treated with aspirin 325 mg p.o. q. day , as well as atorvastatin as stroke preventive. * Transaminase elevation. Likely due to antiretrovirals, randy efavirenz and didanosine; not likely due to zidovudine. Mild, no change in medications indicated. Hep C neg. * DVT prophylaxis. He will be treated with enoxaparin 40 mg subcutaneous q. day until his mobility improves or sufficient time has passed since the stroke to have reduced risk of deep venous thrombosis. * Right hemianopsia versus visual field cut. He will have further vision testing by occupational therapy. His subjective experience of blurred vision is most likely related to the cerebrovascular accident. The other possibility would be retinal involvement due to the didanosine. He will be observed for improvement. Attended staffing, 15 min. D/W csae mgmt, nursing, PT, OT, RESERVATIONS AGENT. Expect 4 - 6 week LOS, with tentative discharge 05/31/16. 04/25/16 13:08 Subjective: No complaints. Nursing has noted continued bladder incontinence,. He calls appropriately but has urgency. He had an episode of RLE clonus in the shower with OT and became panicked. Objective: Vital Signs Temp Pulse Resp BP Pulse Ox 36.8 C 66 15 114/74 95 04/25/16 06:24 04/25/16 06:24 04/25/16 06:24 04/25/16 06:24 04/25/16 06:24 Laboratory Results 04/22/16 08:00 04/19/16 17:57 04/24/16 04/25/16 04/26/16 05:59 05:59 05:59 Intake Total 1072 2200 354 Output Total 500 1950 400 Balance 572 250 -46 - Time Spent With Patient Time Spent With Patient: Greater than 35 minutes floor time today, including more than 50% of time in coordination of care during staffing, and counseling patient. Physical Exam - Physical Exam General Appearance: WD/WN, alert, no apparent distress Respiratory: No respiratory distress, No accessory muscle use Skin: normal color, warm/dry Neuro/Psych: alert, normal mood/affect, aphasia, motor weakness (RUE & RLE flaccid paralysis) ICD10 Worksheet Patient Problems: Problems Problem Status Onset Aphasia due to recent cerebrovascular accident (CVA) Acute Cerebrovascular accident (CVA) due to occlusion of left middle cerebral artery Acute Hemiplegia and hemiparesis following cerebral infarction affecting right dominant side Acute Headache Acute
[2016-04-25] MEDS: ATORVASTATIN CALCIUM 40 MG TAB PO SCH (20:06)
[2016-04-25] MEDS: EFAVIRENZ 600 MG TAB PO SCH (20:07)
[2016-04-25 20:20] LABS: COLOR YELLOW; LEUKOCYTE ESTERASE,URINE NEGATIVE (NEGATIVE); NITRITE,URINE NEGATIVE (NEGATIVE)
[2016-04-26] MEDS: LEVOTHYROXINE 150 MCG TAB PO SCH (05:05)
[2016-04-26] MEDS: LEVOTHYROXINE 25 MCG TAB PO SCH (05:05)
[2016-04-26] MEDS: DIDANOSINE 400 MG PO SCH (05:07)
[2016-04-26] MEDS: ZIDOVUDINE 300 MG PO SCH ×2 (09:06→19:59)
[2016-04-26] MEDS: ENOXAPARIN 40 MG/0.4 ML SYR SC SCH (09:07)
[2016-04-26] MEDS: FLUoxetine 20 MG CAP PO SCH (09:07)
[2016-04-26] MEDS: ASPIRIN 325 MG TAB PO SCH (09:07)
[2016-04-26] MEDS: SENNOSIDES 1 TAB PO PRN (09:07)
[2016-04-26] MEDS: POLYETHYLENE GLYCOL 3350 17 GM PKT PO SCH (09:07)
[2016-04-26 09:34] LABS: % IMMATURE GRANULYOCYTES 0.4 % (0.0-1.1); ABSOLUTE IMMATURE GRANULOCYTES 0.03 10^3/uL (0.00-0.10); ADD DIFF? NO; ADD MORPH? NO; ADD SCAN? NO; ATYPICAL LYMPHOCYTE FLAG 20 (0-99); FRAGMENT RBC FLAG 10 (0-99); HEMOGLOBIN 14.4 g/dL (13.7-17.5); LEFT SHIFT FLG 0 (0-99); LIPEMIA HEMOLYSIS FLAG 90 (0-99); MEAN CELL HEMOGLOBIN 39.2 pg (27.9-34.1); MEAN PLATELET VOLUME 10.2 fL (8.7-11.7); PLATELET CLUMPS FLAG 0 (0-99); PLATELET COUNT 369 10^3/uL (150-400); RED BLOOD CELL COUNT 3.67 10^6/uL (4.40-6.38); RED CELL DISTRIBUTION WIDTH 13.3 % (11.5-15.2)
[2016-04-26 10:56] LABS: FOLATE SERUM 8.31 ng/mL (2.80 - >20.00)
[2016-04-26 12:34] LABS: HCV QT RNA PCR < 1 IU/mL (<15)
--- NOTE | 2016-04-26 13:33 | SOAPPROG ---
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 Initial FIM 30 on 04/20/16; improved to 49 on 04/25/16. Good L strength ; able to stand on L leg; min to mod A transferring. Dressing SBA to min A. Poor carry-over of techniques. Continue physical therapy and occupational therapy to optimize mobility and activities of daily living. Escitalopram started in hospital, changed on 04/18/16 to fluoxetine 20 mg p.o. q. day in keeping with the protocol of the FLAME trial, which showed improved recovery of motor function in hemiplegic strokes. * MEJIA and increased R tongue deviation 04/20/16: head CT w/out bleed. * Dysphagia and expressive greater than receptive aphasia. On regular texture diet. Expressive aphasia is severe; receptive is moderate. Continue Speech and Language Pathology. Able to swallow pills, including efavirenz capsule. * Urinary incontinence. Continue condom catheter at night. PVRs low; unlikely overflow incontinence. Large bladder volumes prevoiding. Continue rehabilitation bladder program with timed voiding q.2 hours and with ultrasound bladder scans to ensure complete voiding. UA wnl 04/25/16. * Cough, productive, CXR c/w bronchitis, CBC with leukocytosis and left shift. Treated with azithromycin 5 days. Cough is resolved. * Anemia, macrocytic. Improved 04/26/16 with normal B12, folate, retics. Still markedly macrocytic, due to HIV meds? * Human immunodeficiency virus, well controlled. Continue current medications. * Hypothyroidism with adequate supplementation. Continue current levothyroxine dose. * Dehydration with dry mucous membranes and erythema to the posterior hard palate and the soft palate. Resolved after IV hydration 04/22/16. Encourage adequate PO hydration. * Unclear etiology of the stroke. He has a monitor tech. He has followup planned with tip cutter, Dr. Barnes 3 - 4 weeks after implantation on 04/18/16 to evaluate for any occult atrial fibrillation. Called Dr. Barnes's office and they will call back to schedule. He is being treated with aspirin 325 mg p.o. q. day, as well as atorvastatin as stroke preventive. * Transaminase elevation. Likely due to antiretrovirals, randy efavirenz and didanosine; not likely due to zidovudine. Mild, no change in medications indicated. Hep C neg. * DVT prophylaxis. He will be treated with enoxaparin 40 mg subcutaneous q. day until his mobility improves or sufficient time has passed since the stroke to have reduced risk of deep venous thrombosis. * Right hemianopsia versus visual field cut. He will have further vision testing by occupational therapy. His subjective experience of blurred vision is most likely related to the cerebrovascular accident. The other possibility would be retinal involvement due to the didanosine. He will be observed for improvement. Expect 4 - 6 week LOS, with tentative discharge 05/31/16. 04/26/16 13:35 Subjective: Was dizzy this morning after prolonged standing with PT. Not orthostatic. Has had large urine output, bladder volumes into 600s, minimal residual. Getting initial return of motor function RLE. Objective: Vital Signs Temp Pulse Resp BP Pulse Ox 36.4 C 65 16 114/71 94 04/26/16 05:28 04/26/16 05:28 04/26/16 05:28 04/26/16 05:28 04/26/16 05:28 Laboratory Results 04/26/16 05:35 04/19/16 17:57 04/25/16 04/26/16 04/27/16 05:59 05:59 05:59 Intake Total 2200 1054 440 Output Total 1950 1900 800 Balance 250 846 -360 Physical Exam - Physical Exam General Appearance: WD/WN, alert, no apparent distress, thin Respiratory: No respiratory distress, No accessory muscle use Skin: normal color, warm/dry Neuro/Psych: alert, normal mood/affect, motor weakness (Working on sit to stand with PT with some use of RLE. RUE flaccid paralysis.) ICD10 Worksheet Patient Problems: Problems Problem Status Onset Aphasia due to recent cerebrovascular accident (CVA) Acute Cerebrovascular accident (CVA) due to occlusion of left middle cerebral artery Acute Hemiplegia and hemiparesis following cerebral infarction affecting right dominant side Acute Headache Acute
--- NOTE | 2016-04-26 18:47 | SOAPPROG ---
SOAP Progress Note Assessment/Plan: Assessment: Acupuncture services were requested post-stroke by Dr. Oviedo. This patient has no movement in his R arm and is aphasic. He seems cognitively aware and is able to answer yes and no questions. I asked him to point to the part of his body that was "the most frustrating". He pointed to his R hand. There is no movement or motor control. Treatment: L side scalp acupuncture: Seech I area Speech II area x 3 Du 20-23 Auricular: Bilateral BFA for PEER TUTOR: Cingular [place] 2 Rosas Men [place] Left side: HT 9 Estrellita Well for acute stroke, reduce cerebral inflammation. PC 9 Estrellita Well for acute stroke, reduce cerebral inflammation. GASTON 11 Estrellita Well for acute stroke, reduce cerebral inflammation. LI [address] meridian, mirrors Speech I area/ST 8 (temporal). Ling Gu Relax the LB Da Stacy Relax the LB HT 8 Balance sleep and wake, relax the tongue. HT 5 Tx apashia HT 4, 7 Balance GB, relax the shoulders HT 3 He Se, Balance GB, KI HT 3-8 Balances GB and mirror Speech II area (parietal). GASTON 5 Resolve Phlegm, Balance BL meridian GASTON 9 Balance BL meridian, decrease tension in flexion and extension, base of skull/occiput ST 36 Increase Qi and blood GB 34 Empirical point to relax tendons GB 35-39 Decrease shoulder, head, and neck tension, balance GB Note: no points done on ankle or feet due to compression stockings. Patient had a visitor before the treatment had started. I asked him if he had had a lot of visitors and if he wanted them. "Yes" to the first question, "no" to the latter. Relayed this information to his nurse to discuss management of visitors with his partner. Plan: The best frequency to treat the symptoms of stroke is daily. The best window of time is three weeks to three months. I will discuss this with his providers and care givers. My recommendations is a minimum of two times per week with needles retained 45 minutes - 1 hour each time. 04/26/16 18:26 Objective: Vital Signs Temp Pulse Resp BP Pulse Ox 36.4 C 65 16 114/71 94 04/26/16 05:28 04/26/16 05:28 04/26/16 05:28 04/26/16 05:28 04/26/16 05:28 Laboratory Results 04/26/16 05:35 04/19/16 17:57 04/25/16 04/26/16 04/27/16 05:59 05:59 05:59 Intake Total 2200 1294 440 Output Total 9207 7090 6906 Balance 139 -956 -1110 ICD10 Worksheet Patient Problems: Problems Problem Status Onset Aphasia due to recent cerebrovascular accident (CVA) Acute Cerebrovascular accident (CVA) due to occlusion of left middle cerebral artery Acute Hemiplegia and hemiparesis following cerebral infarction affecting right dominant side Acute Headache Acute
[2016-04-26] MEDS: ATORVASTATIN CALCIUM 40 MG TAB PO SCH (19:57)
[2016-04-26] MEDS: EFAVIRENZ 600 MG TAB PO SCH (19:58)
[2016-04-26] MEDS: NYSTATIN POWDER 15 GM BTL TP SCH (20:06)
[2016-04-27] MEDS: LEVOTHYROXINE 125 MCG TAB PO SCH (06:21)
[2016-04-27] MEDS: DIDANOSINE 400 MG PO SCH (06:21)
[2016-04-27] MEDS: ZIDOVUDINE 300 MG PO SCH ×2 (08:48→20:04)
[2016-04-27] MEDS: NYSTATIN POWDER 15 GM BTL TP SCH ×3 (08:48→20:03)
[2016-04-27] MEDS: ENOXAPARIN 40 MG/0.4 ML SYR SC SCH (08:48)
[2016-04-27] MEDS: SENNOSIDES 1 TAB PO PRN (08:48)
[2016-04-27] MEDS: ASPIRIN 325 MG TAB PO SCH (08:48)
[2016-04-27] MEDS: POLYETHYLENE GLYCOL 3350 17 GM PKT PO SCH (08:48)
[2016-04-27] MEDS: FLUoxetine 20 MG CAP PO SCH (08:49)
[2016-04-27] MEDS ORDERED: GABAPENTIN 300 MG CAP PO PRN ×2 (10:04→10:29)
--- NOTE | 2016-04-27 10:17 | SOAPPROG ---
SOAP Progress Note Assessment/Plan: Assessment: 45 yo M s/p large MCA CVA on 04/10/16 of unclear etiology. Impairments in mobility, self care, speech and communication. 04/27/2016 he endorsed R sided tingling which is somewhat painful, interfering with sleep. OK with Gabapentin on as PRN, not interested in a standing dose for now. All issues new to this provider today. 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 Initial FIM 30 on 04/20/16; improved to 49 on 04/25/16. Good L strength ; able to stand on L leg; min to mod A transferring. Dressing SBA to min A. Poor carry-over of techniques. Continue physical therapy and occupational therapy to optimize mobility and activities of daily living. Escitalopram started in hospital, changed on 04/18/16 to fluoxetine 20 mg p.o. q. day in keeping with the protocol of the FLAME trial, which showed improved recovery of motor function in hemiplegic strokes. * Dysphagia and expressive greater than receptive aphasia. On regular texture diet. Expressive aphasia is severe; receptive is moderate. Continue Speech and Language Pathology. Able to swallow pills, including efavirenz capsule. * Urinary incontinence. Continue condom catheter at night. PVRs low; unlikely overflow incontinence. Large bladder volumes prevoiding. Continue rehabilitation bladder program with timed voiding q.2 hours and with ultrasound bladder scans to ensure complete voiding. UA wnl 04/25/16. * Anemia, macrocytic. Improved 04/26/16 with normal B12, folate, retics. Still markedly macrocytic, due to HIV meds? Stable/ Resolved: * MEJIA and increased R tongue deviation 04/20/16: head CT w/out bleed. * Cough, productive, CXR c/w bronchitis, CBC with leukocytosis and left shift. Treated with azithromycin 5 days. Cough is resolved. * Human immunodeficiency virus, well controlled. Continue current medications. * Hypothyroidism with adequate supplementation. Continue current levothyroxine dose. * Dehydration with dry mucous membranes and erythema to the posterior hard palate and the soft palate. Resolved after IV hydration 04/22/16. Encourage adequate PO hydration. * Unclear etiology of the stroke. He has a cardiac monitor technician. He has followup planned with piano mechanic apprentice, Dr. Barnes 3 - 4 weeks after implantation on 04/18/16 to evaluate for any occult atrial fibrillation. Called Dr. Barnes's office and they will call back to schedule. He is being treated with aspirin 325 mg p.o. q. day, as well as atorvastatin as stroke preventive. * Transaminase elevation. Likely due to antiretrovirals, randy efavirenz and didanosine; not likely due to zidovudine. Mild, no change in medications indicated. Hep C neg. * DVT prophylaxis. He will be treated with enoxaparin 40 mg subcutaneous q. day until his mobility improves or sufficient time has passed since the stroke to have reduced risk of deep venous thrombosis. * Right hemianopsia versus visual field cut. He will have further vision testing by occupational therapy. His subjective experience of blurred vision is most likely related to the cerebrovascular accident. The other possibility would be retinal involvement due to the didanosine. He will be observed for improvement. Expect 4 - 6 week LOS, with tentative discharge 05/31/16. 04/27/16 10:13 Subjective: CC: Right sided pain NO acute events overnight. with reliable yes/no he endorses right sided tingling that interferes with sleep, getting somewhat worse as time goes on. Otherwise no sleep or pain issues. No issues interfering with therapies. No new numbness or weakness. Objective: Vital Signs Temp Pulse Resp BP Pulse Ox 36.6 C 64 16 114/72 94 04/27/16 06:28 04/27/16 06:28 04/27/16 06:28 04/27/16 06:28 04/27/16 06:28 Laboratory Results 04/26/16 05:35 04/19/16 17:57 04/26/16 04/27/16 04/28/16 05:59 05:59 05:59 Intake Total 8007 676 576 Output Total 2577 9275 Balance -147 -8064 274 Physical Exam - Physical Exam General Appearance: alert, no apparent distress EENT: No scleral icterus (R), No scleral icterus (L) Respiratory: No respiratory distress, No accessory muscle use Cardiac/Chest: regular rate, rhythm Skin: normal color, warm/dry Extremities: No pedal edema, No swelling Neuro/Psych: alert, normal mood/affect, motor weakness (Right simran), speech abnormalities (reliable yes/no nonverbal, but poor verbalization) ICD10 Worksheet Patient Problems: Problems Problem Status Onset Aphasia due to recent cerebrovascular accident (CVA) Acute Cerebrovascular accident (CVA) due to occlusion of left middle cerebral artery Acute Hemiplegia and hemiparesis following cerebral infarction affecting right dominant side Acute Neuropathic pain Acute Headache Acute - ICD10 Problem Qualifiers (1) Neuropathic pain
[2016-04-27] MEDS: ATORVASTATIN CALCIUM 40 MG TAB PO SCH (20:02)
[2016-04-27] MEDS: EFAVIRENZ 600 MG TAB PO SCH (20:04)
[2016-04-28] MEDS: LEVOTHYROXINE 150 MCG TAB PO SCH (06:11)
[2016-04-28] MEDS: LEVOTHYROXINE 25 MCG TAB PO SCH (06:11)
[2016-04-28] MEDS: DIDANOSINE 400 MG PO SCH (06:13)
[2016-04-28] MEDS: ENOXAPARIN 40 MG/0.4 ML SYR SC SCH (08:56)
[2016-04-28] MEDS: FLUoxetine 20 MG CAP PO SCH (08:56)
[2016-04-28] MEDS: ACETAMINOPHEN 325 MG TAB PO PRN (08:56)
[2016-04-28] MEDS: ASPIRIN 325 MG TAB PO SCH (08:56)
[2016-04-28] MEDS: ZIDOVUDINE 300 MG PO SCH ×2 (08:57→20:06)
[2016-04-28] MEDS: POLYETHYLENE GLYCOL 3350 17 GM PKT PO SCH (08:57)
[2016-04-28] MEDS: NYSTATIN POWDER 15 GM BTL TP SCH ×3 (08:57→20:07)
[2016-04-28] MEDS: SENNOSIDES 1 TAB PO PRN (08:57)
--- NOTE | 2016-04-28 15:28 | SOAPPROG ---
SOAP Progress Note Assessment/Plan: 45 yo M s/p large MCA CVA on 04/10/16 of unclear etiology. Impairments in mobility, self care, speech and communication. 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 Initial FIM 30 on 04/20/16; improved to 49 on 04/25/16. Good L strength ; able to stand on L leg; min to mod A transferring. Dressing SBA to min A. Poor carry-over of techniques. Continue physical therapy and occupational therapy to optimize mobility and activities of daily living. Escitalopram started in hospital, changed on 04/18/16 to fluoxetine 20 mg p.o. q. day in keeping with the protocol of the FLAME trial, which showed improved recovery of motor function in hemiplegic strokes. * Dysphagia and expressive greater than receptive aphasia. On regular texture diet. Expressive aphasia is severe; receptive is moderate. Continue Speech and Language Pathology. Able to swallow pills, including efavirenz capsule. * Urinary incontinence. Continue condom catheter at night. PVRs low; unlikely overflow incontinence. Large bladder volumes prevoiding. Continue rehabilitation bladder program with timed voiding q.2 hours and with ultrasound bladder scans to ensure complete voiding. UA wnl 04/25/16. * Anemia, macrocytic. Improved 04/26/16 with normal B12, folate, retics. Still markedly macrocytic, due to HIV meds? Stable/ Resolved: * MEJIA and increased R tongue deviation 04/20/16: head CT w/out bleed. * Cough, productive, CXR c/w bronchitis, CBC with leukocytosis and left shift. Treated with azithromycin 5 days. Cough is resolved. * Human immunodeficiency virus, well controlled. Continue current medications. * Hypothyroidism with adequate supplementation. Continue current levothyroxine dose. * Dehydration with dry mucous membranes and erythema to the posterior hard palate and the soft palate. Resolved after IV hydration 04/22/16. Encourage adequate PO hydration. * Unclear etiology of the stroke. He has a property assessment monitor. He has followup planned with tailings man, Dr. Barnes 3 - 4 weeks after implantation on 04/18/16 to evaluate for any occult atrial fibrillation. Called Dr. Barnes's office and they will call back to schedule. He is being treated with aspirin 325 mg p.o. q. day, as well as atorvastatin as stroke preventive. * Transaminase elevation. Likely due to antiretrovirals, randy efavirenz and didanosine; not likely due to zidovudine. Mild, no change in medications indicated. Hep C neg. * DVT prophylaxis. He will be treated with enoxaparin 40 mg subcutaneous q. day until his mobility improves or sufficient time has passed since the stroke to have reduced risk of deep venous thrombosis. * Right hemianopsia versus visual field cut. He will have further vision testing by occupational therapy. His subjective experience of blurred vision is most likely related to the cerebrovascular accident. The other possibility would be retinal involvement due to the didanosine. He will be observed for improvement. Expect 4 - 6 week LOS, with tentative discharge 05/31/16. Subjective: No events. No complaints today. Denies pain or MEJIA. Objective: Vital Signs Temp Pulse Resp BP Pulse Ox 36.7 C 68 16 109/66 95 04/28/16 06:19 04/28/16 06:19 04/28/16 06:19 04/28/16 06:19 04/28/16 06:19 Laboratory Results 04/26/16 05:35 04/19/16 17:57 04/27/16 04/28/16 04/29/16 05:59 05:59 06:59 Intake Total 676 1076 720 Output Total 2500 3000 501 Balance -3159 -0638 219 - Pending Discharge Pending Discharge Within 24 Hours: No Pending Discharge Within 48 Hours: No Physical Exam - Physical Exam General Appearance: alert, no apparent distress Neck: full range of motion Respiratory: lungs clear, normal breath sounds Cardiac/Chest: regular rate, rhythm Abdomen: non-tender, soft Skin: warm/dry Neuro/Psych: alert, normal mood/affect, aphasia (expressive, +anomia, non repetitive), motor weakness (left hemiplegia, flaccid with evolving spasticity) ICD10 Worksheet Patient Problems: Problems Problem Status Onset Aphasia due to recent cerebrovascular accident (CVA) Acute Cerebrovascular accident (CVA) due to occlusion of left middle cerebral artery Acute Hemiplegia and hemiparesis following cerebral infarction affecting right dominant side Acute Neuropathic pain Acute Headache Acute
[2016-04-28] MEDS: ATORVASTATIN CALCIUM 40 MG TAB PO SCH (20:06)
[2016-04-28] MEDS: EFAVIRENZ 600 MG TAB PO SCH (20:07)
[2016-04-29] MEDS: LEVOTHYROXINE 125 MCG TAB PO SCH (06:11)
[2016-04-29] MEDS: DIDANOSINE 400 MG PO SCH (06:12)
[2016-04-29] MEDS: ASPIRIN 325 MG TAB PO SCH (08:50)
[2016-04-29] MEDS: FLUoxetine 20 MG CAP PO SCH (08:50)
[2016-04-29] MEDS: ENOXAPARIN 40 MG/0.4 ML SYR SC SCH (08:50)
[2016-04-29] MEDS: POLYETHYLENE GLYCOL 3350 17 GM PKT PO SCH (08:50)
[2016-04-29] MEDS: NYSTATIN POWDER 15 GM BTL TP SCH ×3 (09:40→20:39)
[2016-04-29] MEDS: ZIDOVUDINE 300 MG PO SCH ×2 (09:41→20:38)
--- NOTE | 2016-04-29 10:28 | SOAPPROG ---
SOAP Progress Note Assessment/Plan: 45 yo M s/p large MCA CVA on 04/10/16 of unclear etiology. Impairments in mobility, self care, speech and communication. 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 Initial FIM 30 on 04/20/16; improved to 49 on 04/25/16. Good L strength ; able to stand on L leg; min to mod A transferring. Dressing SBA to min A. Poor carry-over of techniques. Continue physical therapy and occupational therapy to optimize mobility and activities of daily living. Escitalopram started in hospital, changed on 04/18/16 to fluoxetine 20 mg p.o. q. day in keeping with the protocol of the FLAME trial, which showed improved recovery of motor function in hemiplegic strokes. * Dysphagia and expressive greater than receptive aphasia. On regular texture diet. Expressive aphasia is severe; receptive is moderate. Continue Speech and Language Pathology. Able to swallow pills, including efavirenz capsule. * Urinary incontinence. Continue condom catheter at night. PVRs low; unlikely overflow incontinence. Large bladder volumes prevoiding. Continue rehabilitation bladder program with timed voiding q.2 hours and with ultrasound bladder scans to ensure complete voiding. UA wnl 04/25/16. * Anemia, macrocytic. Improved 04/26/16 with normal B12, folate, retics. Still markedly macrocytic, due to HIV meds? Stable/ Resolved: * MEJIA and increased R tongue deviation 04/20/16: head CT w/out bleed. * Cough, productive, CXR c/w bronchitis, CBC with leukocytosis and left shift. Treated with azithromycin 5 days. Cough is resolved. * Human immunodeficiency virus, well controlled. Continue current medications. * Hypothyroidism with adequate supplementation. Continue current levothyroxine dose. * Dehydration with dry mucous membranes and erythema to the posterior hard palate and the soft palate. Resolved after IV hydration 04/22/16. Encourage adequate PO hydration. * Unclear etiology of the stroke. He has a court monitor. He has followup planned with picker operator, Dr. Barnes 3 - 4 weeks after implantation on 04/18/16 to evaluate for any occult atrial fibrillation. Called Dr. Barnes's office and they will call back to schedule. He is being treated with aspirin 325 mg p.o. q. day, as well as atorvastatin as stroke preventive. * Transaminase elevation. Likely due to antiretrovirals, randy efavirenz and didanosine; not likely due to zidovudine. Mild, no change in medications indicated. Hep C neg. * DVT prophylaxis. He will be treated with enoxaparin 40 mg subcutaneous q. day until his mobility improves or sufficient time has passed since the stroke to have reduced risk of deep venous thrombosis. * Right hemianopsia versus visual field cut. He will have further vision testing by occupational therapy. His subjective experience of blurred vision is most likely related to the cerebrovascular accident. The other possibility would be retinal involvement due to the didanosine. He will be observed for improvement. Expect 4 - 6 week LOS, with tentative discharge 05/31/16. Subjective: No events. No complaints this a.m. Denies pain or MEJIA. Objective: Vital Signs Temp Pulse Resp BP Pulse Ox 36.9 C 66 16 100/58 L 96 04/29/16 08:29 04/29/16 08:29 04/29/16 08:29 04/29/16 08:29 04/29/16 08:29 Laboratory Results 04/26/16 05:35 04/19/16 17:57 04/28/16 04/29/16 04/30/16 04:59 05:59 05:59 Intake Total Output Total Balance - Pending Discharge Pending Discharge Within 24 Hours: No Pending Discharge Within 48 Hours: No Physical Exam - Physical Exam General Appearance: alert, no apparent distress Neck: supple Respiratory: normal breath sounds, No respiratory distress Cardiac/Chest: regular rate, rhythm Abdomen: non-tender, soft Skin: normal color Neuro/Psych: alert, normal mood/affect, aphasia (motor), motor weakness (right simran) ICD10 Worksheet Patient Problems: Problems Problem Status Onset Aphasia due to recent cerebrovascular accident (CVA) Acute Cerebrovascular accident (CVA) due to occlusion of left middle cerebral artery Acute Hemiplegia and hemiparesis following cerebral infarction affecting right dominant side Acute Neuropathic pain Acute Headache Acute
[2016-04-29] MEDS: EFAVIRENZ 600 MG TAB PO SCH (20:37)
[2016-04-29] MEDS: ATORVASTATIN CALCIUM 40 MG TAB PO SCH (20:38)
[2016-04-30] MEDS: LEVOTHYROXINE 150 MCG TAB PO SCH (06:49)
[2016-04-30] MEDS: LEVOTHYROXINE 25 MCG TAB PO SCH (06:49)
[2016-04-30] MEDS: DIDANOSINE 400 MG PO SCH (06:51)
[2016-04-30] MEDS: POLYETHYLENE GLYCOL 3350 17 GM PKT PO SCH (12:36)
[2016-04-30] MEDS: ZIDOVUDINE 300 MG PO SCH ×2 (12:36→20:14)
[2016-04-30] MEDS: ASPIRIN 325 MG TAB PO SCH (12:38)
[2016-04-30] MEDS: ENOXAPARIN 40 MG/0.4 ML SYR SC SCH (12:38)
[2016-04-30] MEDS: FLUoxetine 20 MG CAP PO SCH (12:38)
[2016-04-30] MEDS: SENNOSIDES 1 TAB PO PRN (12:42)
[2016-04-30] MEDS: NYSTATIN POWDER 15 GM BTL TP SCH ×3 (12:43→21:34)
--- NOTE | 2016-04-30 15:32 | SOAPPROG ---
SOAP Progress Note Assessment/Plan: Assessment/Plan: 45 yo M s/p large MCA CVA on 04/10/16 of unclear etiology. Impairments in mobility, self care, speech and communication. 04/30 no new issues, medically stable. Continuing with plan below. 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 Initial FIM 30 on 04/20/16; improved to 49 on 04/25/16. Good L strength ; able to stand on L leg; min to mod A transferring. Dressing SBA to min A. Poor carry-over of techniques. Continue physical therapy and occupational therapy to optimize mobility and activities of daily living. Escitalopram started in hospital, changed on 04/18/16 to fluoxetine 20 mg p.o. q. day in keeping with the protocol of the FLAME trial, which showed improved recovery of motor function in hemiplegic strokes. * Dysphagia and expressive greater than receptive aphasia. On regular texture diet. Expressive aphasia is severe; receptive is moderate. Continue Speech and Language Pathology. Able to swallow pills, including efavirenz capsule. * Urinary incontinence. Continue condom catheter at night. PVRs low; unlikely overflow incontinence. Large bladder volumes prevoiding. Continue rehabilitation bladder program with timed voiding q.2 hours and with ultrasound bladder scans to ensure complete voiding. UA wnl 04/25/16. * Anemia, macrocytic. Improved 04/26/16 with normal B12, folate, retics. Still markedly macrocytic, due to HIV meds? Stable/ Resolved: * MEJIA and increased R tongue deviation 04/20/16: head CT w/out bleed. * Cough, productive, CXR c/w bronchitis, CBC with leukocytosis and left shift. Treated with azithromycin 5 days. Cough is resolved. * Human immunodeficiency virus, well controlled. Continue current medications. * Hypothyroidism with adequate supplementation. Continue current levothyroxine dose. * Dehydration with dry mucous membranes and erythema to the posterior hard palate and the soft palate. Resolved after IV hydration 04/22/16. Encourage adequate PO hydration. * Unclear etiology of the stroke. He has a radiographer cardiac catheterization. He has followup planned with corporate legal assistant, Dr. Barnes 3 - 4 weeks after implantation on 04/18/16 to evaluate for any occult atrial fibrillation. Called Dr. Barnes's office and they will call back to schedule. He is being treated with aspirin 325 mg p.o. q. day, as well as atorvastatin as stroke preventive. * Transaminase elevation. Likely due to antiretrovirals, randy efavirenz and didanosine; not likely due to zidovudine. Mild, no change in medications indicated. Hep C neg. * DVT prophylaxis. He will be treated with enoxaparin 40 mg subcutaneous q. day until his mobility improves or sufficient time has passed since the stroke to have reduced risk of deep venous thrombosis. * Right hemianopsia versus visual field cut. He will have further vision testing by occupational therapy. His subjective experience of blurred vision is most likely related to the cerebrovascular accident. The other possibility would be retinal involvement due to the didanosine. He will be observed for improvement. Expect 4 - 6 week LOS, with tentative discharge 05/31/16. Subjective: CC: Neurological stability, rehab progress No acute events overnight. Participating well with therapies. No pain, sleeping well. No new numbness, tingling or weakness. Objective: Vital Signs Temp Pulse Resp BP Pulse Ox 36.3 C 82 14 108/70 97 04/30/16 07:12 04/30/16 12:33 04/30/16 12:33 04/30/16 12:33 04/30/16 07:12 Laboratory Results 04/26/16 05:35 04/19/16 17:57 04/29/16 04/30/16 05/01/16 05:59 05:59 05:59 Intake Total 1184 472 Output Total 900 Balance 1184 -428 Physical Exam - Physical Exam General Appearance: alert, no apparent distress Respiratory: No respiratory distress, No accessory muscle use Cardiac/Chest: regular rate, rhythm, No edema Neuro/Psych: alert, aphasia ICD10 Worksheet Patient Problems: Problems Problem Status Onset Aphasia due to recent cerebrovascular accident (CVA) Acute Cerebrovascular accident (CVA) due to occlusion of left middle cerebral artery Acute Hemiplegia and hemiparesis following cerebral infarction affecting right dominant side Acute Neuropathic pain Acute Headache Acute - ICD10 Problem Qualifiers (1) Neuropathic pain
[2016-04-30] MEDS: ATORVASTATIN CALCIUM 40 MG TAB PO SCH (20:14)
[2016-04-30] MEDS: EFAVIRENZ 600 MG TAB PO SCH (20:15)
[2016-05-01] MEDS: LEVOTHYROXINE 125 MCG TAB PO SCH (06:34)
[2016-05-01] MEDS: DIDANOSINE 400 MG PO SCH ×2 (06:35→20:42)
[2016-05-01] MEDS: ENOXAPARIN 40 MG/0.4 ML SYR SC SCH (09:36)
[2016-05-01] MEDS: ZIDOVUDINE 300 MG PO SCH ×2 (09:37→20:42)
[2016-05-01] MEDS: SENNOSIDES 1 TAB PO PRN (09:38)
[2016-05-01] MEDS: NYSTATIN POWDER 15 GM BTL TP SCH ×3 (09:38→20:44)
[2016-05-01] MEDS: ASPIRIN 325 MG TAB PO SCH (09:38)
[2016-05-01] MEDS: FLUoxetine 20 MG CAP PO SCH (09:38)
[2016-05-01] MEDS: POLYETHYLENE GLYCOL 3350 17 GM PKT PO SCH (09:38)
--- NOTE | 2016-05-01 14:49 | SOAPPROG ---
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 Initial FIM 30 on 04/20/16; improved to 49 on 04/25/16. Has subsequently been able to ambulate with PT. Good L strength; able to stand on L leg; min to mod A transferring. Dressing SBA to min A. Poor carry-over of techniques. Continue physical therapy and occupational therapy to optimize mobility and activities of daily living. Escitalopram started in hospital, changed on 04/18/16 to fluoxetine 20 mg p.o. q. day in keeping with the protocol of the FLAME trial, which showed improved recovery of motor function in hemiplegic strokes. * MEJIA and increased R tongue deviation 04/20/16: head CT w/out bleed. * Dysphagia and expressive greater than receptive aphasia. On regular texture diet. Expressive aphasia is severe; receptive is moderate. Continue Speech and Language Pathology. Able to swallow pills, including efavirenz capsule. * Urinary incontinence. Continue condom catheter at night. PVRs low; unlikely overflow incontinence. Large bladder volumes prevoiding. Continue rehabilitation bladder program with timed voiding q.2 hours and with ultrasound bladder scans to ensure complete voiding. UA wnl 04/25/16. * Cough, productive, CXR c/w bronchitis, CBC with leukocytosis and left shift. Treated with azithromycin 5 days. Cough is resolved. * Anemia, macrocytic. Improved 04/26/16 with normal B12, folate, retics. Still markedly macrocytic, due to HIV meds? * Human immunodeficiency virus, well controlled. Continue current medications. * Hypothyroidism with adequate supplementation. Continue current levothyroxine dose. * Dehydration with dry mucous membranes and erythema to the posterior hard palate and the soft palate. Resolved after IV hydration 04/22/16. Encourage adequate PO hydration. * Unclear etiology of the stroke. He has a ekg monitor. He has followup planned with property and equipment clerk, Dr. Barnes 3 - 4 weeks after implantation on 04/18/16 to evaluate for any occult atrial fibrillation. Called Dr. Barnes's office and they will call back to schedule. He is being treated with aspirin 325 mg p.o. q. day, as well as atorvastatin as stroke preventive. * Transaminase elevation. Likely due to antiretrovirals, randy efavirenz and didanosine; not likely due to zidovudine. Mild, no change in medications indicated. Hep C neg. * DVT prophylaxis. He will be treated with enoxaparin 40 mg subcutaneous q. day until his mobility improves or sufficient time has passed since the stroke to have reduced risk of deep venous thrombosis. * Right hemianopsia versus visual field cut. He will have further vision testing by occupational therapy. His subjective experience of blurred vision is most likely related to the cerebrovascular accident. The other possibility would be retinal involvement due to the didanosine. He will be observed for improvement. Expect 4 - 6 week LOS, with tentative discharge 05/31/16. 05/01/16 14:49 Subjective: No complaints. Denies f/c, cough/dyspnea. Not in pain. Objective: Vital Signs Temp Pulse Resp BP Pulse Ox 36.8 C 70 16 109/70 94 05/01/16 08:00 05/01/16 08:00 05/01/16 08:00 05/01/16 08:00 05/01/16 08:00 Laboratory Results 04/26/16 05:35 04/19/16 17:57 04/30/16 05/01/16 05/02/16 05:59 05:59 05:59 Intake Total 1187 452 240 Output Total 2914 718 Balance 9051 -1618 -900 Physical Exam - Physical Exam General Appearance: WD/WN, alert, no apparent distress Respiratory: normal breath sounds, No crackles, No rhonchi, No wheezing Cardiac/Chest: regular rate, rhythm, No edema Skin: normal color, warm/dry Neuro/Psych: alert, normal mood/affect, aphasia (Expressive), motor weakness ( RUE flaccid paralysis. ) ICD10 Worksheet Patient Problems: Problems Problem Status Onset Aphasia due to recent cerebrovascular accident (CVA) Acute Cerebrovascular accident (CVA) due to occlusion of left middle cerebral artery Acute Hemiplegia and hemiparesis following cerebral infarction affecting right dominant side Acute Neuropathic pain Acute Headache Acute
[2016-05-01] MEDS: ATORVASTATIN CALCIUM 40 MG TAB PO SCH (20:40)
[2016-05-01] MEDS: EFAVIRENZ 600 MG TAB PO SCH (20:43)
[2016-05-02] MEDS: LEVOTHYROXINE 150 MCG TAB PO SCH (06:18)
[2016-05-02] MEDS: LEVOTHYROXINE 25 MCG TAB PO SCH (06:19)
[2016-05-02] MEDS: DIDANOSINE 400 MG PO SCH (06:19)
[2016-05-02] MEDS: POLYETHYLENE GLYCOL 3350 17 GM PKT PO SCH (08:30)
[2016-05-02] MEDS: FLUoxetine 20 MG CAP PO SCH (08:39)
[2016-05-02] MEDS: ASPIRIN 325 MG TAB PO SCH (08:39)
[2016-05-02] MEDS: ZIDOVUDINE 300 MG PO SCH ×2 (08:39→20:02)
[2016-05-02] MEDS: ENOXAPARIN 40 MG/0.4 ML SYR SC SCH (10:08)
[2016-05-02] MEDS: NYSTATIN POWDER 15 GM BTL TP SCH ×3 (10:09→20:00)
--- NOTE | 2016-05-02 11:54 | SOAPPROG ---
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 Initial FIM 30 on 04/20/16; improved to 53 on 04/25/16; to 67 as of . Has walked 10' at rail, max A of 2 per PT; beginning to have return of motor function R hip.. T'cj min A - CGA, squat-pivot to L. Accomplished car t 'cj with . CGA bathing; CGA - min A LB dressing, toileting. Ataxia affects carry-over of techniques. Continue physical therapy and occupational therapy to optimize mobility and activities of daily living. Escitalopram started in hospital, changed on 04/18/16 to fluoxetine 20 mg p.o. q. day in keeping with the protocol of the FLAME trial, which showed improved recovery of motor function in hemiplegic strokes. * Dysphagia and expressive greater than receptive aphasia. On regular texture diet & thin liquids. Expressive aphasia is severe; receptive is moderate. Continue Speech and Language Pathology. Able to swallow pills, including efavirenz capsule. * Urinary incontinence. Continue condom catheter at night. Improved with timed voiding q.2 hours and with ultrasound bladder scans to ensure complete voiding. UA wnl 04/25/16. * Unclear etiology of the stroke. He has a surveillance system monitor. He has followup planned with music publicist, Dr. Barnes 05/22/16 to evaluate for any occult atrial fibrillation. He is being treated with aspirin 325 mg p.o. q. day, as well as atorvastatin as stroke preventive. * Anemia, macrocytic. Improved 04/26/16 with normal B12, folate, retics. Still markedly macrocytic, due to HIV meds? * Human immunodeficiency virus, well controlled. Continue current medications. * Hypothyroidism with adequate supplementation. Continue current levothyroxine dose. * Dehydration with dry mucous membranes and erythema to the posterior hard palate and the soft palate. Resolved after IV hydration 04/22/16. Encourage adequate PO hydration. * MEJIA and increased R tongue deviation 04/20/16: head CT w/out bleed. * Cough, productive, CXR c/w bronchitis, CBC with leukocytosis and left shift. Treated with azithromycin 5 days. Cough is resolved. * Transaminase elevation. Likely due to antiretrovirals, randy efavirenz and didanosine; not likely due to zidovudine. Mild, no change in medications indicated. Hep C neg. * DVT prophylaxis. He will be treated with enoxaparin 40 mg subcutaneous q. day until his mobility improves or sufficient time has passed since the stroke to have reduced risk of deep venous thrombosis. * Right hemianopsia versus visual field cut. He will have further vision testing by occupational therapy. His subjective experience of blurred vision is most likely related to the cerebrovascular accident. The other possibility would be retinal involvement due to the didanosine. He will be observed for improvement. Attended staffing, 15 min. D/W case mgmt, nursing, PT, OT, P[employer]CH [employer]EDER, marketing support assistant. Continue planned discharge 05/31/16. 05/02/16 11:54 Subjective: No complaints. Slept well. No f/c, no cough/dyspnea. Objective: Vital Signs Temp Pulse Resp BP Pulse Ox 36.4 C 75 15 114/69 94 05/02/16 06:27 05/02/16 06:27 05/02/16 06:27 05/02/16 06:27 05/02/16 06:27 Laboratory Results 04/26/16 05:35 04/19/16 17:57 05/01/16 05/02/16 05/03/16 05:59 05:59 05:59 Intake Total 712 480 908 Output Total 6915 1340 Balance -1535 -9410 908 - Time Spent With Patient Time Spent With Patient: Greater than 35 minutes floor time today, including more than 50% of time in coordination of care during staffing meeting, and counseling patient. Physical Exam - Physical Exam General Appearance: WD/WN, alert, no apparent distress Respiratory: No respiratory distress, No accessory muscle use Skin: normal color, warm/dry Neuro/Psych: alert, normal mood/affect, aphasia, motor weakness (RUE and RLE) ICD10 Worksheet Patient Problems: Problems Problem Status Onset Aphasia due to recent cerebrovascular accident (CVA) Acute Cerebrovascular accident (CVA) due to occlusion of left middle cerebral artery Acute Hemiplegia and hemiparesis following cerebral infarction affecting right dominant side Acute Neuropathic pain Acute Headache Acute
[2016-05-02] MEDS: ATORVASTATIN CALCIUM 40 MG TAB PO SCH (20:00)
[2016-05-02] MEDS: EFAVIRENZ 600 MG TAB PO SCH ×2 (20:00→20:02)
[2016-05-03] MEDS: LEVOTHYROXINE 125 MCG TAB PO SCH (06:15)
[2016-05-03] MEDS: DIDANOSINE 400 MG PO SCH (06:15)
[2016-05-03] MEDS: FLUoxetine 20 MG CAP PO SCH (08:53)
[2016-05-03] MEDS: ENOXAPARIN 40 MG/0.4 ML SYR SC SCH (08:53)
[2016-05-03] MEDS: ASPIRIN 325 MG TAB PO SCH (08:53)
[2016-05-03] MEDS: NYSTATIN POWDER 15 GM BTL TP SCH ×3 (08:54→21:20)
[2016-05-03] MEDS: POLYETHYLENE GLYCOL 3350 17 GM PKT PO SCH (08:54)
[2016-05-03] MEDS: ZIDOVUDINE 300 MG PO SCH ×2 (08:54→21:20)
--- NOTE | 2016-05-03 15:17 | SOAPPROG ---
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 Initial FIM 30 on 04/20/16; improved to 53 on 04/25/16; to 67 as of . Has walked 10' at rail, max A of 2 per PT; beginning to have return of motor function R hip.. T'cj min A - CGA, squat-pivot to L. Accomplished car t 'cj with . CGA bathing; CGA - min A LB dressing, toileting. Ataxia affects carry-over of techniques. Continue physical therapy and occupational therapy to optimize mobility and activities of daily living. Escitalopram started in hospital, changed on 04/18/16 to fluoxetine 20 mg p.o. q. day in keeping with the protocol of the FLAME trial, which showed improved recovery of motor function in hemiplegic strokes. * Dysphagia and expressive greater than receptive aphasia. On regular texture diet & thin liquids. Expressive aphasia is severe; receptive is moderate. Continue Speech and Language Pathology. Able to swallow pills, including efavirenz capsule. * Urinary incontinence. Continue condom catheter at night. Improved with timed voiding q.2 hours and with ultrasound bladder scans to ensure complete voiding. UA wnl 04/25/16. * Unclear etiology of the stroke. He has a telemetry monitor. He has followup planned with medical scribe, Dr. Barnes 05/22/16 to evaluate for any occult atrial fibrillation. He is being treated with aspirin 325 mg p.o. q. day, as well as atorvastatin as stroke preventive. * Anemia, macrocytic. Improved 04/26/16 with normal B12, folate, retics. Still markedly macrocytic, due to HIV meds? * Human immunodeficiency virus, well controlled. Continue current medications. * Hypothyroidism with adequate supplementation. Continue current levothyroxine dose. * Dehydration with dry mucous membranes and erythema to the posterior hard palate and the soft palate. Resolved after IV hydration 04/22/16. Encourage adequate PO hydration. * MEJIA and increased R tongue deviation 04/20/16: head CT w/out bleed. * Cough, productive, CXR c/w bronchitis, CBC with leukocytosis and left shift. Treated with azithromycin 5 days. Cough is resolved. * Transaminase elevation. Likely due to antiretrovirals, randy efavirenz and didanosine; not likely due to zidovudine. Mild, no change in medications indicated. Hep C neg. * DVT prophylaxis. He will be treated with enoxaparin 40 mg subcutaneous q. day until his mobility improves or sufficient time has passed since the stroke to have reduced risk of deep venous thrombosis. * Right hemianopsia versus visual field cut. He will have further vision testing by occupational therapy. His subjective experience of blurred vision is most likely related to the cerebrovascular accident. The other possibility would be retinal involvement due to the didanosine. He will be observed for improvement. Continue planned discharge 05/31/16. 05/03/16 15:15 Subjective: Nicked himself shaving in 2 places this morning. Was shaving with L hand; previously R-handed. O/w w/out complaint. Objective: Vital Signs Temp Pulse Resp BP Pulse Ox 36.7 C 69 16 112/82 H 95 05/03/16 06:25 05/03/16 06:25 05/03/16 06:25 05/03/16 06:25 05/03/16 06:25 Laboratory Results 04/26/16 05:35 04/19/16 17:57 05/02/16 05/03/16 05/04/16 05:59 05:59 05:59 Intake Total 480 2220 240 Output Total 2600 1550 350 Balance -2120 670 -110 Physical Exam - Physical Exam General Appearance: WD/WN, alert, no apparent distress Respiratory: No respiratory distress, No accessory muscle use Cardiac/Chest: No edema Skin: normal color, warm/dry Neuro/Psych: alert, normal mood/affect, aphasia, motor weakness (RUE & RLE) ICD10 Worksheet Patient Problems: Problems Problem Status Onset Aphasia due to recent cerebrovascular accident (CVA) Acute Cerebrovascular accident (CVA) due to occlusion of left middle cerebral artery Acute Hemiplegia and hemiparesis following cerebral infarction affecting right dominant side Acute Neuropathic pain Acute Headache Acute
--- NOTE | 2016-05-03 17:03 | SOAPPROG ---
SOAP Progress Note Assessment/Plan: Assessment: Acupuncture services were requested post-stroke by Dr. Oviedo. This patient has no movement in his R arm and is aphasic. He seems cognitively aware and is able to answer yes and no questions. I asked him to point to the part of his body that was "the most frustrating". He pointed to his R hand. There is no movement or motor control. Treatment: L side scalp acupuncture: Seech I area Speech II area x 3 Du 20-23 Auricular: Bilateral BFA for DRY KILN OPERATOR HELPER: Cingular Girate [place] 2 Rosas Men [place] Zero Left side: HT 9 Estrellita Well for acute stroke, reduce cerebral inflammation. PC 9 Estrellita Well for acute stroke, reduce cerebral inflammation. GASTON 11 Estrellita Well for acute stroke, reduce cerebral inflammation. LI [address] meridian, mirrors Speech I area/ST 8 (temporal). Ling Gu Relax the LB Da Stacy Relax the LB HT 8 Balance sleep and wake, relax the tongue. HT 5 Tx apashia HT 4, 7 Balance GB, relax the shoulders HT 3 He Se, Balance GB, KI HT 3-8 Balances GB and mirror Speech II area (parietal). GASTON 5 Resolve Phlegm, Balance BL meridian GASTON 9 Balance BL meridian, decrease tension in flexion and extension, base of skull/occiput ST 36 Increase Qi and blood GB 34 Empirical point to relax tendons GB 35-39 Decrease shoulder, head, and neck tension, balance GB Note: no points done on ankle or feet due to compression stockings. Patient had a visitor before the treatment had started. I asked him if he had had a lot of visitors and if he wanted them. "Yes" to the first question, "no" to the latter. Relayed this information to his nurse to discuss management of visitors with his partner. Plan: The best frequency to treat the symptoms of stroke is daily. The best window of time is three weeks to three months. I will discuss this with his providers and care givers. My recommendations is a minimum of two times per week with needles retained 45 minutes - 1 hour each time. 04/26/16 18:26 05/03/16 16:57 Assessment: Acupuncture services were requested post-stroke by Dr. Oviedo. This patient has no movement in his R arm and is aphasic. He seems cognitively aware and is able to answer yes and no questions. I asked him to point to the part of his body that was "the most frustrating". He pointed to his R hand. There is no movement or motor control. Today he was able to lift and straighten his R leg - straight leg raise, initiated from the hip. The patient had some apprehension about acupuncture as it is "new" and does not love the needles, but felt it helped and wants to continue. Treatment: L side scalp acupuncture: Speech I area Speech II area x 3 Speech III Du 22 Auricular: L BFA for DRY KILN OPERATOR HELPER: Cingular Girate [place] 2 Ros[place] Men [place] Left side: LI [address] meridian, mirrors Speech I area/ST 8 (temporal). SI 3 Relax the spine and reduce any spasms in paraspinals, balance BL meridian. SJ 3 Relax the neck, balance the GB meridian, improve blood flow in lateral neck. HT 8 Balance sleep and wake, relax the tongue. HT 5 Tx apashia HT 4, 7 Balance GB, relax the shoulders ST 36 Increase Qi and blood GB 34 Empirical point to relax tendons SP [address] meridian KI 10 Balance the BL meridian Note: no points done on ankle or feet due to compression stockings. Berwind were retained for forty minutes. Plan: Discussed a treatment plan with his partner, Roe. We will try to arrange acupuncture two times per week. Objective: Vital Signs Temp Pulse Resp BP Pulse Ox 36.7 C 69 16 112/82 H 95 05/03/16 06:25 05/03/16 06:25 05/03/16 06:25 05/03/16 06:25 05/03/16 06:25 Laboratory Results 04/26/16 05:35 04/19/16 17:57 05/02/16 05/03/16 05/04/16 05:59 05:59 05:59 Intake Total 480 2220 240 Output Total 2600 1550 650 Balance -2120 670 -410 ICD10 Worksheet Patient Problems: Problems Problem Status Onset Aphasia due to recent cerebrovascular accident (CVA) Acute Cerebrovascular accident (CVA) due to occlusion of left middle cerebral artery Acute Hemiplegia and hemiparesis following cerebral infarction affecting right dominant side Acute Neuropathic pain Acute Headache Acute
[2016-05-03] MEDS: ATORVASTATIN CALCIUM 40 MG TAB PO SCH (21:19)
[2016-05-04] MEDS: LEVOTHYROXINE 25 MCG TAB PO SCH (06:15)
[2016-05-04] MEDS: LEVOTHYROXINE 150 MCG TAB PO SCH (06:16)
[2016-05-04] MEDS: DIDANOSINE 400 MG PO SCH (06:16)
[2016-05-04] MEDS: POLYETHYLENE GLYCOL 3350 17 GM PKT PO SCH (08:39)
[2016-05-04] MEDS: FLUoxetine 20 MG CAP PO SCH (08:40)
[2016-05-04] MEDS: ENOXAPARIN 40 MG/0.4 ML SYR SC SCH (08:40)
[2016-05-04] MEDS: ASPIRIN 325 MG TAB PO SCH (08:40)
[2016-05-04] MEDS: NYSTATIN POWDER 15 GM BTL TP SCH ×2 (09:33→16:52)
[2016-05-04] MEDS: ZIDOVUDINE 300 MG PO SCH ×2 (09:35→20:43)
--- NOTE | 2016-05-04 12:53 | SOAPPROG ---
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 Initial FIM 30 on 04/20/16; improved to 53 on 04/25/16; to 67 as of . Walked 10' at rail, max A of 2 per PT, improving as of 05/04/16 with 80' max A using shopping cart; beginning to have return of motor function R hip.. T 'cj min A - CGA, squat-pivot to L. Accomplished car t'cj with . CGA bathing; CGA - min A LB dressing, toileting. Ataxia affects carry-over of techniques. Continue physical therapy and occupational therapy to optimize mobility and activities of daily living. Escitalopram started in hospital, changed on 04/18/16 to fluoxetine 20 mg p.o. q. day in keeping with the protocol of the FLAME trial, which showed improved recovery of motor function in hemiplegic strokes. * Dysphagia and expressive greater than receptive aphasia. Advanced to regular texture diet & thin liquids. Expressive aphasia is severe; receptive is moderate. Continue Speech and Language Pathology. Able to swallow pills, including efavirenz capsule. * Urinary incontinence. Continue condom catheter at night. Improved with timed voiding q.2 hours and with ultrasound bladder scans to ensure complete voiding. UA wnl 04/25/16. * Unclear etiology of the stroke. He has a clerk of works. He has followup planned with financial service professional, Dr. Barnes 05/22/16 to evaluate for any occult atrial fibrillation. He is being treated with aspirin 325 mg p.o. q. day, as well as atorvastatin as stroke preventive. Question of E-stim affecting heart monitor d /w Dr. Barnes: no affect, proceed with E-stim. * Anemia, macrocytic. Improved 04/26/16 with normal B12, folate, retics. Still markedly macrocytic, due to HIV meds? * Human immunodeficiency virus, well controlled. Continue current medications. * Hypothyroidism with adequate supplementation. Continue current levothyroxine dose. * Dehydration with dry mucous membranes and erythema to the posterior hard palate and the soft palate. Resolved after IV hydration 04/22/16. Encourage adequate PO hydration. * MEJIA and increased R tongue deviation 04/20/16: head CT w/out bleed. * Cough, productive, CXR c/w bronchitis, CBC with leukocytosis and left shift. Treated with azithromycin 5 days. Cough is resolved. * Transaminase elevation. Likely due to antiretrovirals, randy efavirenz and didanosine; not likely due to zidovudine. Mild, no change in medications indicated. Hep C neg. * DVT prophylaxis. He will be treated with enoxaparin 40 mg subcutaneous q. day until his mobility improves or sufficient time has passed since the stroke to have reduced risk of deep venous thrombosis. * Right hemianopsia versus visual field cut. He will have further vision testing by occupational therapy. His subjective experience of blurred vision is most likely related to the cerebrovascular accident. The other possibility would be retinal involvement due to the didanosine. He will be observed for improvement. Continue planned discharge 05/31/16. 05/04/16 12:45 Subjective: No complaints. Sleeping well. Not in pain, No F/C, cough, dyspnea. Objective: Vital Signs Temp Pulse Resp BP Pulse Ox 36.8 C 65 16 115/69 96 05/04/16 06:33 05/04/16 06:33 05/04/16 06:33 05/04/16 06:33 05/04/16 06:33 Laboratory Results 04/26/16 05:35 04/19/16 17:57 05/03/16 05/04/16 05/05/16 05:59 05:59 05:59 Intake Total 2220 920 360 Output Total 1550 2050 400 Balance 670 -1130 -40 Physical Exam - Physical Exam General Appearance: WD/WN, alert, no apparent distress Respiratory: normal breath sounds, No crackles, No rhonchi, No wheezing Cardiac/Chest: regular rate, rhythm, No edema Skin: normal color, warm/dry Neuro/Psych: alert, normal mood/affect, aphasia (Expressive), motor weakness ( RUE flaccid paralysis, some increased flexor tone in hand, working with OT.) ICD10 Worksheet Patient Problems: Problems Problem Status Onset Aphasia due to recent cerebrovascular accident (CVA) Acute Cerebrovascular accident (CVA) due to occlusion of left middle cerebral artery Acute Hemiplegia and hemiparesis following cerebral infarction affecting right dominant side Acute Neuropathic pain Acute Headache Acute
[2016-05-04] MEDS: ATORVASTATIN CALCIUM 40 MG TAB PO SCH (20:43)
[2016-05-04] MEDS: EFAVIRENZ 600 MG TAB PO SCH (20:43)
[2016-05-05] MEDS: NYSTATIN POWDER 15 GM BTL TP SCH ×4 (05:30→20:56)
[2016-05-05] MEDS: LEVOTHYROXINE 125 MCG TAB PO SCH (06:23)
[2016-05-05] MEDS: DIDANOSINE 400 MG PO SCH (06:24)
[2016-05-05] MEDS: FLUoxetine 20 MG CAP PO SCH (08:58)
[2016-05-05] MEDS: ENOXAPARIN 40 MG/0.4 ML SYR SC SCH (08:58)
[2016-05-05] MEDS: ASPIRIN 325 MG TAB PO SCH (08:58)
[2016-05-05] MEDS: ZIDOVUDINE 300 MG PO SCH ×2 (08:59→20:57)
[2016-05-05] MEDS: POLYETHYLENE GLYCOL 3350 17 GM PKT PO SCH (08:59)
--- NOTE | 2016-05-05 09:39 | SOAPPROG ---
SOAP Progress Note Assessment/Plan: Assessment/Plan: 45 yo M s/p large MCA CVA on 04/10/16 of unclear etiology: 05/05 doing well in therapies, no new issues today. Neurologically improving, speech improving. 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 Initial FIM 30 on 04/20/16; improved to 53 on 04/25/16; to 67 as of . Walked 10' at rail, max A of 2 per PT, improving as of 05/04/16 with 80' max A using shopping cart; beginning to have return of motor function R hip.. T 'cj min A - CGA, squat-pivot to L. Accomplished car t'cj with . CGA bathing; CGA - min A LB dressing, toileting. Ataxia affects carry-over of techniques. Continue physical therapy and occupational therapy to optimize mobility and activities of daily living. Escitalopram started in hospital, changed on 04/18/16 to fluoxetine 20 mg p.o. q. day in keeping with the protocol of the FLAME trial, which showed improved recovery of motor function in hemiplegic strokes. * Dysphagia and expressive greater than receptive aphasia. Advanced to regular texture diet & thin liquids. Expressive aphasia is severe; receptive is moderate. Continue Speech and Language Pathology. Able to swallow pills, including efavirenz capsule. * Urinary incontinence. Continue condom catheter at night. Improved with timed voiding q.2 hours and with ultrasound bladder scans to ensure complete voiding. UA wnl 04/25/16. * DVT prophylaxis. He will be treated with enoxaparin 40 mg subcutaneous q. day until his mobility improves or sufficient time has passed since the stroke to have reduced risk of deep venous thrombosis. Stable/ improving: * Unclear etiology of the stroke. He has a cardiac monitor technician. He has followup planned with surgical training specialist, Dr. Barnes 05/22/16 to evaluate for any occult atrial fibrillation. He is being treated with aspirin 325 mg p.o. q. day, as well as atorvastatin as stroke preventive. Question of E-stim affecting heart monitor d /w Dr. Barnes: no affect, proceed with E-stim. * Anemia, macrocytic. Improved 04/26/16 with normal B12, folate, retics. Still markedly macrocytic, due to HIV meds? * Human immunodeficiency virus, well controlled. Continue current medications. * Hypothyroidism with adequate supplementation. Continue current levothyroxine dose. * Dehydration with dry mucous membranes and erythema to the posterior hard palate and the soft palate. Resolved after IV hydration 04/22/16. Encourage adequate PO hydration. * MEJIA and increased R tongue deviation 04/20/16: head CT w/out bleed. * Cough, productive, CXR c/w bronchitis, CBC with leukocytosis and left shift. Treated with azithromycin 5 days. Cough is resolved. * Transaminase elevation. Likely due to antiretrovirals, randy efavirenz and didanosine; not likely due to zidovudine. Mild, no change in medications indicated. Hep C neg. * Right hemianopsia versus visual field cut. He will have further vision testing by occupational therapy. His subjective experience of blurred vision is most likely related to the cerebrovascular accident. The other possibility would be retinal involvement due to the didanosine. He will be observed for improvement. Continue planned discharge 05/31/16. Subjective: CC: Neurological stability No acute events overnight. No new numbness, tingling, weakness. Speech improving per his report, no pain or sleep issues interfering with therapies. Objective: Vital Signs Temp Pulse Resp BP Pulse Ox 36.8 C 71 16 119/68 94 05/05/16 07:12 05/05/16 07:12 05/05/16 07:12 05/05/16 07:12 05/05/16 07:12 Laboratory Results 04/26/16 05:35 04/19/16 17:57 05/04/16 05/05/16 05/06/16 05:59 05:59 05:59 Intake Total 920 840 Output Total 6068 1200 Balance -1130 -360 Physical Exam - Physical Exam General Appearance: alert, no apparent distress EENT: No scleral icterus (R), No scleral icterus (L) Respiratory: No respiratory distress, No accessory muscle use Cardiac/Chest: normal peripheral pulses, regular rate, rhythm Skin: normal color, warm/dry Extremities: No pedal edema, No swelling Neuro/Psych: alert, normal mood/affect, speech abnormalities (Aphasia, accurate yes no and working on muliple word sentences. ) ICD10 Worksheet Patient Problems: Problems Problem Status Onset Aphasia due to recent cerebrovascular accident (CVA) Acute Cerebrovascular accident (CVA) due to occlusion of left middle cerebral artery Acute Hemiplegia and hemiparesis following cerebral infarction affecting right dominant side Acute Neuropathic pain Acute Headache Acute - ICD10 Problem Qualifiers (1) Neuropathic pain
[2016-05-05] MEDS: EFAVIRENZ 600 MG TAB PO SCH (20:57)
[2016-05-05] MEDS: ATORVASTATIN CALCIUM 40 MG TAB PO SCH (21:00)
[2016-05-06] MEDS: LEVOTHYROXINE 150 MCG TAB PO SCH (06:33)
[2016-05-06] MEDS: DIDANOSINE 400 MG PO SCH (06:34)
[2016-05-06] MEDS: LEVOTHYROXINE 25 MCG TAB PO SCH (06:34)
[2016-05-06] MEDS: ENOXAPARIN 40 MG/0.4 ML SYR SC SCH (08:52)
[2016-05-06] MEDS: ASPIRIN 325 MG TAB PO SCH (08:52)
[2016-05-06] MEDS: NYSTATIN POWDER 15 GM BTL TP SCH ×3 (08:53→21:15)
[2016-05-06] MEDS: POLYETHYLENE GLYCOL 3350 17 GM PKT PO SCH (08:53)
[2016-05-06] MEDS: FLUoxetine 20 MG CAP PO SCH (08:53)
[2016-05-06] MEDS: ZIDOVUDINE 300 MG PO SCH ×2 (08:54→21:29)
--- NOTE | 2016-05-06 11:29 | SOAPPROG ---
SOAP Progress Note Assessment/Plan: Assessment/Plan: 45 yo M s/p large MCA CVA on 04/10/16 of unclear etiology: 05/06 doing well, participating in therapies, no new neurological decline. Continue plan below. Continues to have neuropathic pain in his arm, not interfering with therapies and he does not desire addition of gabapentin. 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 Initial FIM 30 on 04/20/16; improved to 53 on 04/25/16; to 67 as of . Walked 10' at rail, max A of 2 per PT, improving as of 05/04/16 with 80' max A using shopping cart; beginning to have return of motor function R hip.. T 'cj min A - CGA, squat-pivot to L. Accomplished car t'cj with . CGA bathing; CGA - min A LB dressing, toileting. Ataxia affects carry-over of techniques. Continue physical therapy and occupational therapy to optimize mobility and activities of daily living. Escitalopram started in hospital, changed on 04/18/16 to fluoxetine 20 mg p.o. q. day in keeping with the protocol of the FLAME trial, which showed improved recovery of motor function in hemiplegic strokes. * Dysphagia and expressive greater than receptive aphasia. Advanced to regular texture diet & thin liquids. Expressive aphasia is severe; receptive is moderate. Continue Speech and Language Pathology. Able to swallow pills, including efavirenz capsule. * Urinary incontinence. Continue condom catheter at night. Improved with timed voiding q.2 hours and with ultrasound bladder scans to ensure complete voiding. UA wnl 04/25/16. * DVT prophylaxis. He will be treated with enoxaparin 40 mg subcutaneous q. day until his mobility improves or sufficient time has passed since the stroke to have reduced risk of deep venous thrombosis. Stable/ improving: * Unclear etiology of the stroke. He has a electronic device monitor. He has followup planned with corner cutter, Dr. Barnes 05/22/16 to evaluate for any occult atrial fibrillation. He is being treated with aspirin 325 mg p.o. q. day, as well as atorvastatin as stroke preventive. Question of E-stim affecting heart monitor d /w Dr. Barnes: no affect, proceed with E-stim. * Anemia, macrocytic. Improved 04/26/16 with normal B12, folate, retics. Still markedly macrocytic, due to HIV meds? * Human immunodeficiency virus, well controlled. Continue current medications. * Hypothyroidism with adequate supplementation. Continue current levothyroxine dose. * Dehydration with dry mucous membranes and erythema to the posterior hard palate and the soft palate. Resolved after IV hydration 04/22/16. Encourage adequate PO hydration. * MEJIA and increased R tongue deviation 04/20/16: head CT w/out bleed. * Cough, productive, CXR c/w bronchitis, CBC with leukocytosis and left shift. Treated with azithromycin 5 days. Cough is resolved. * Transaminase elevation. Likely due to antiretrovirals, randy efavirenz and didanosine; not likely due to zidovudine. Mild, no change in medications indicated. Hep C neg. * Right hemianopsia versus visual field cut. He will have further vision testing by occupational therapy. His subjective experience of blurred vision is most likely related to the cerebrovascular accident. The other possibility would be retinal involvement due to the didanosine. He will be observed for improvement. Continue planned discharge 05/31/16. 05/06/16 11:26 Subjective: CC: neuropathic pain and neurological stability No acute events overnight. Pt has ongoing tingling in his right arm, but not particularly bothersome and he does not desire additional Rx for it. No new numbness, tingling, or weakness. Participating well in therapies. Objective: Vital Signs Temp Pulse Resp BP Pulse Ox 37.0 C 86 12 119/64 95 05/06/16 06:42 05/06/16 06:42 05/06/16 06:42 05/06/16 06:42 05/06/16 06:42 Laboratory Results 04/26/16 05:35 04/19/16 17:57 05/05/16 05/06/16 05/07/16 05:59 05:59 05:59 Intake Total 840 1050 Output Total 1200 750 Balance -360 300 Physical Exam - Physical Exam General Appearance: alert, no apparent distress, other (Sitting in WC) EENT: No scleral icterus (R), No scleral icterus (L) Respiratory: lungs clear, normal breath sounds, No respiratory distress, No accessory muscle use Cardiac/Chest: normal peripheral pulses, regular rate, rhythm Back: Normal inspection Skin: normal color, warm/dry Extremities: No pedal edema, No swelling Neuro/Psych: alert, normal mood/affect, speech abnormalities (dense expressive aphasia with few word sentences. Accurate yes no) ICD10 Worksheet Patient Problems: Problems Problem Status Onset Aphasia due to recent cerebrovascular accident (CVA) Acute Cerebrovascular accident (CVA) due to occlusion of left middle cerebral artery Acute Hemiplegia and hemiparesis following cerebral infarction affecting right dominant side Acute Neuropathic pain Acute Headache Acute - ICD10 Problem Qualifiers (1) Neuropathic pain
[2016-05-06] MEDS: EFAVIRENZ 600 MG TAB PO SCH (21:16)
[2016-05-06] MEDS: ATORVASTATIN CALCIUM 40 MG TAB PO SCH (21:17)
[2016-05-07] MEDS: DIDANOSINE 400 MG PO SCH (05:33)
[2016-05-07] MEDS: LEVOTHYROXINE 125 MCG TAB PO SCH (05:34)
[2016-05-07] MEDS: ASPIRIN 325 MG TAB PO SCH (09:02)
[2016-05-07] MEDS: ENOXAPARIN 40 MG/0.4 ML SYR SC SCH (09:03)
[2016-05-07] MEDS: FLUoxetine 20 MG CAP PO SCH (09:03)
[2016-05-07] MEDS: POLYETHYLENE GLYCOL 3350 17 GM PKT PO SCH ×2 (09:03→09:15)
[2016-05-07] MEDS: NYSTATIN POWDER 15 GM BTL TP SCH ×3 (09:14→20:45)
[2016-05-07] MEDS: ZIDOVUDINE 300 MG PO SCH ×2 (11:10→20:44)
--- NOTE | 2016-05-07 17:50 | SOAPPROG ---
SOAP Progress Note Assessment/Plan: Assessment: Acupuncture services were requested post-stroke by Dr. Oviedo. This patient has no movement in his R arm and is aphasic. He seems cognitively aware and is able to answer yes and no questions. I asked him to point to the part of his body that was "the most frustrating". He pointed to his R hand. There is no movement or motor control. Treatment: L side scalp acupuncture: Seech I area Speech II area x 3 Du 20-23 Auricular: Bilateral BFA for SENIOR ACCOUNTING CLERK: Cingular Girate Ramsay 2 Rosas Men [place] Left side: HT 9 Estrellita Well for acute stroke, reduce cerebral inflammation. PC 9 Estrellita Well for acute stroke, reduce cerebral inflammation. GASTON 11 Estrellita Well for acute stroke, reduce cerebral inflammation. LI [address] meridian, mirrors Speech I area/ST 8 (temporal). Ling Gu Relax the LB Da Stacy Relax the LB HT 8 Balance sleep and wake, relax the tongue. HT 5 Tx apashia HT 4, 7 Balance GB, relax the shoulders HT 3 He Se, Balance GB, KI HT 3-8 Balances GB and mirror Speech II area (parietal). GASTON 5 Resolve Phlegm, Balance BL meridian GASTON 9 Balance BL meridian, decrease tension in flexion and extension, base of skull/occiput ST 36 Increase Qi and blood GB 34 Empirical point to relax tendons GB 35-39 Decrease shoulder, head, and neck tension, balance GB Note: no points done on ankle or feet due to compression stockings. Patient had a visitor before the treatment had started. I asked him if he had had a lot of visitors and if he wanted them. "Yes" to the first question, "no" to the latter. Relayed this information to his nurse to discuss management of visitors with his partner. Plan: The best frequency to treat the symptoms of stroke is daily. The best window of time is three weeks to three months. I will discuss this with his providers and care givers. My recommendations is a minimum of two times per week with needles retained 45 minutes - 1 hour each time. 04/26/16 18:26 05/03/16 16:57 Assessment: Acupuncture services were requested post-stroke by Dr. Oviedo. This patient has no movement in his R arm and is aphasic. He seems cognitively aware and is able to answer yes and no questions. I asked him to point to the part of his body that was "the most frustrating". He pointed to his R hand. There is no movement or motor control. Today he was able to lift and straighten his R leg - straight leg raise, initiated from the hip. The patient had some apprehension about acupuncture as it is "new" and does not love the needles, but felt it helped and wants to continue. Treatment: L side scalp acupuncture: Speech I area Speech II area x 3 Speech III Du 22 Auricular: L BFA for SENIOR ACCOUNTING CLERK: Cingular Girate Ramsay 2 Rosas Men [place] Left side: LI [address] meridian, mirrors Speech I area/ST 8 (temporal). SI 3 Relax the spine and reduce any spasms in paraspinals, balance BL meridian. SJ 3 Relax the neck, balance the GB meridian, improve blood flow in lateral neck. HT 8 Balance sleep and wake, relax the tongue. HT 5 Tx apashia HT 4, 7 Balance GB, relax the shoulders ST 36 Increase Qi and blood GB 34 Empirical point to relax tendons SP [address] meridian KI 10 Balance the BL meridian Note: no points done on ankle or feet due to compression stockings. [place] were retained for forty minutes. Plan: Discussed a treatment plan with his partner, Roe. We will try to arrange acupuncture two times per week. 05/07/16 17:40 Patient is regaining strength and movement from his R hip. He has little movement in his R knee, R arm, R elbow, R forearm, and R hand. Through gesturing and yes/no questions the patient indicated he has less sensation below his R elbow and R hand than his upper arm - bicep, deltoid, and tricep. He continues to have difficulty pulling up words, but is able to speak in longer sentences when he offers information rather than asked a question. He seems to be able to comprehend what is being said or asked, but has difficulty finding the words. He did express apprehension about acupuncture (some level of needle phobia), but he would like to continue with the treatments. The treatment today has three main focuses: scalp acupuncture to improve his speech, neurological to reduce inflammation and swelling (by improving blood flow and circulation) that may contribute to any of the symptoms of the stroke, and "direct imaging" of the areas affected by the stroke: tongue, elbow, forearm , hand, and knee. Treatment: L side scalp acupuncture: Seech I area Speech II area x 2 Speech III Auricular: Bilateral BFA for SENIOR ACCOUNTING CLERK: Cingular Girate Ramsay 2 Ros[place] Left side: LI [address] meridian, mirrors Speech I area/ST 8 (temporal). HT 8 Balance sleep and wake, relax the tongue. HT 5 Tx apashia HT 4, 7 Balance GB, relax the shoulders HT 3 x 3 lyric He Se, Balance GB, KI, image elbow and knee. HT 3-8 Balances GB and mirror Speech II area (parietal). PC 3 x 3 Balance the LR meridian. Reduce LR Wind. Image the knee and elbow. GASTON 5 Resolve Phlegm, Balance BL meridian GASTON 9 Balance BL meridian, decrease tension in flexion and extension, base of skull/occiput GASTON 10 Relax the throat, Balance the BL meridian ST [address] 35 image the elbow and knee GB 34 Empirical point to relax tendons GB 35-39 Decrease shoulder, head, and neck tension, balance GB Du Bi image the elbow and knee Note: no points done on ankle or feet due to compression stockings. Treatment chosen using the principles of Dr Carrera's Balance Method. Thirty-eight needles inserted and retained approximately forty minutes. Objective: Vital Signs Temp Pulse Resp BP Pulse Ox 36.9 C 71 16 94/66 L 96 05/07/16 05:41 05/07/16 05:41 05/07/16 05:41 05/07/16 05:41 05/07/16 05:41 Laboratory Results 04/26/16 05:35 04/19/16 17:57 05/06/16 05/07/16 05/08/16 05:59 05:59 05:59 Intake Total 1050 960 650 Output Total 750 1200 Balance 300 -240 650 ICD10 Worksheet Patient Problems: Problems Problem Status Onset Aphasia due to recent cerebrovascular accident (CVA) Acute Cerebrovascular accident (CVA) due to occlusion of left middle cerebral artery Acute Hemiplegia and hemiparesis following cerebral infarction affecting right dominant side Acute Neuropathic pain Acute Headache Acute
--- NOTE | 2016-05-07 18:54 | SOAPPROG ---
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 Initial FIM 30 on 04/20/16; improved to 53 on 04/25/16; to 67 as of . Walked 10' at rail, max A of 2 per PT, improving as of 05/04/16 with 80' max A using shopping cart; beginning to have return of motor function R hip.. T 'cj min A - CGA, squat-pivot to L. Accomplished car t'cj with . CGA bathing; CGA - min A LB dressing, toileting. Ataxia affects carry-over of techniques. Continue physical therapy and occupational therapy to optimize mobility and activities of daily living. Escitalopram started in hospital, changed on 04/18/16 to fluoxetine 20 mg p.o. q. day in keeping with the protocol of the FLAME trial, which showed improved recovery of motor function in hemiplegic strokes. * Dysphagia and expressive greater than receptive aphasia. Advanced to regular texture diet & thin liquids. Expressive aphasia is severe; receptive is moderate. Continue Speech and Language Pathology. Able to swallow pills, including efavirenz capsule. * Urinary incontinence. Continue condom catheter at night. Improved with timed voiding q.2 hours and with ultrasound bladder scans to ensure complete voiding. UA wnl 04/25/16. * Unclear etiology of the stroke. He has a game master. He has followup planned with bulk mail technician, Dr. Barnes 05/22/16 to evaluate for any occult atrial fibrillation. He is being treated with aspirin 325 mg p.o. q. day, as well as atorvastatin as stroke preventive. Question of E-stim affecting heart monitor d /w Dr. Barnes: no affect, proceed with E-stim. * Anemia, macrocytic. Improved 04/26/16 with normal B12, folate, retics. Still markedly macrocytic, due to HIV meds? * Human immunodeficiency virus, well controlled. Continue current medications. * Hypothyroidism with adequate supplementation. Continue current levothyroxine dose. * Dehydration with dry mucous membranes and erythema to the posterior hard palate and the soft palate. Resolved after IV hydration 04/22/16. Encourage adequate PO hydration. * MEJIA and increased R tongue deviation 04/20/16: head CT w/out bleed. * Cough, productive, CXR c/w bronchitis, CBC with leukocytosis and left shift. Treated with azithromycin 5 days. Cough is resolved. * Transaminase elevation. Likely due to antiretrovirals, randy efavirenz and didanosine; not likely due to zidovudine. Mild, no change in medications indicated. Hep C neg. * DVT prophylaxis. He will be treated with enoxaparin 40 mg subcutaneous q. day until his mobility improves or sufficient time has passed since the stroke to have reduced risk of deep venous thrombosis. * Right hemianopsia versus visual field cut. He will have further vision testing by occupational therapy. His subjective experience of blurred vision is most likely related to the cerebrovascular accident. The other possibility would be retinal involvement due to the didanosine. He will be observed for improvement. Continue planned discharge 05/31/16. 05/07/16 18:53 Subjective: No complaints. Receiving acupuncture. Does not like the needles. Objective: Vital Signs Temp Pulse Resp BP Pulse Ox 36.9 C 71 16 94/66 L 96 05/07/16 05:41 05/07/16 05:41 05/07/16 05:41 05/07/16 05:41 05/07/16 05:41 Laboratory Results 04/26/16 05:35 04/19/16 17:57 05/06/16 05/07/16 05/08/16 05:59 05:59 05:59 Intake Total 1050 960 650 Output Total 750 1200 Balance 300 -240 650 Physical Exam - Physical Exam General Appearance: WD/WN, alert, no apparent distress Respiratory: No respiratory distress, No accessory muscle use Cardiac/Chest: No edema Skin: normal color, warm/dry, other (Multiple acupunture needles in [place], arms & legs) Neuro/Psych: alert, normal mood/affect, aphasia (Expressive) ICD10 Worksheet Patient Problems: Problems Problem Status Onset Aphasia due to recent cerebrovascular accident (CVA) Acute Cerebrovascular accident (CVA) due to occlusion of left middle cerebral artery Acute Hemiplegia and hemiparesis following cerebral infarction affecting right dominant side Acute Neuropathic pain Acute Headache Acute
[2016-05-07] MEDS: EFAVIRENZ 600 MG TAB PO SCH (20:43)
[2016-05-07] MEDS: ATORVASTATIN CALCIUM 40 MG TAB PO SCH (20:45)
[2016-05-08] MEDS: LEVOTHYROXINE 25 MCG TAB PO SCH (05:45)
[2016-05-08] MEDS: DIDANOSINE 400 MG PO SCH (05:46)
[2016-05-08] MEDS: LEVOTHYROXINE 150 MCG TAB PO SCH (05:46)
[2016-05-08] MEDS: ENOXAPARIN 40 MG/0.4 ML SYR SC SCH (09:28)
[2016-05-08] MEDS: FLUoxetine 20 MG CAP PO SCH (09:28)
[2016-05-08] MEDS: NYSTATIN POWDER 15 GM BTL TP SCH ×3 (09:29→21:39)
[2016-05-08] MEDS: POLYETHYLENE GLYCOL 3350 17 GM PKT PO SCH (09:29)
[2016-05-08] MEDS: ZIDOVUDINE 300 MG PO SCH ×2 (09:30→21:39)
[2016-05-08] MEDS: ASPIRIN 325 MG TAB PO SCH (09:30)
--- NOTE | 2016-05-08 16:07 | SOAPPROG ---
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 Initial FIM 30 on 04/20/16; improved to 53 on 04/25/16; to 67 as of . Walked 10' at rail, max A of 2 per PT, improving as of 05/04/16 with 80' max A using shopping cart; beginning to have return of motor function R hip. PT notes increased flexor tome RLE but not interfering and no indication for muscle relaxant. T'cj min A - CGA, squat-pivot to L. Accomplished car t'cj with . CGA bathing; CGA - min A LB dressing, toileting. Ataxia affects carry-over of techniques. Continue physical therapy and occupational therapy to optimize mobility and activities of daily living. Escitalopram started in hospital, changed on 04/18/16 to fluoxetine 20 mg p.o. q. day in keeping with the protocol of the FLAME trial, which showed improved recovery of motor function in hemiplegic strokes. * Dysphagia and expressive greater than receptive aphasia. Advanced to regular texture diet & thin liquids. Expressive aphasia is severe; receptive is moderate. Continue Speech and Language Pathology. Able to swallow pills, including efavirenz capsule. * Urinary incontinence. Continue condom catheter at night. Improved with timed voiding q.2 hours and with ultrasound bladder scans to ensure complete voiding. UA wnl 04/25/16. * Unclear etiology of the stroke. He has a threat monitoring analyst. He has followup planned with tack cutter, Dr. Barnes 05/22/16 to evaluate for any occult atrial fibrillation. He is being treated with aspirin 325 mg p.o. q. day, as well as atorvastatin as stroke preventive. Question of E-stim affecting heart monitor d /w Dr. Barnes: no affect, proceed with E-stim. * Anemia, macrocytic. Improved 04/26/16 with normal B12, folate, retics. Still markedly macrocytic, due to HIV meds? * Human immunodeficiency virus, well controlled. Continue current medications. * Hypothyroidism with adequate supplementation. Continue current levothyroxine dose. * Dehydration with dry mucous membranes and erythema to the posterior hard palate and the soft palate. Resolved after IV hydration 04/22/16. Encourage adequate PO hydration. * MEJIA and increased R tongue deviation 04/20/16: head CT w/out bleed. * Cough, productive, CXR c/w bronchitis, CBC with leukocytosis and left shift. Treated with azithromycin 5 days. Cough is resolved. * Transaminase elevation. Likely due to antiretrovirals, randy efavirenz and didanosine; not likely due to zidovudine. Mild, no change in medications indicated. Hep C neg. * DVT prophylaxis. He will be treated with enoxaparin 40 mg subcutaneous q. day until his mobility improves or sufficient time has passed since the stroke to have reduced risk of deep venous thrombosis. * Right hemianopsia versus visual field cut. He will have further vision testing by occupational therapy. His subjective experience of blurred vision is most likely related to the cerebrovascular accident. The other possibility would be retinal involvement due to the didanosine. He will be observed for improvement. Continue planned discharge 05/31/16. 05/08/16 16:05 Subjective: No complaints. Denies f/c, cough, dyspnea. Improved ability to move RLE; no change in RUE. Objective: Vital Signs Temp Pulse Resp BP Pulse Ox 36.7 C 76 16 116/74 95 05/08/16 05:46 05/08/16 05:46 05/08/16 05:46 05/08/16 05:46 05/08/16 05:46 Laboratory Results 04/26/16 05:35 04/19/16 17:57 05/07/16 05/08/16 05/09/16 05:59 05:59 05:59 Intake Total 960 1250 1200 Output Total 1200 650 500 Balance -240 600 700 Physical Exam - Physical Exam General Appearance: WD/WN, alert, no apparent distress Respiratory: No respiratory distress, No accessory muscle use Skin: normal color, warm/dry Neuro/Psych: alert, normal mood/affect, aphasia (Expressive), motor weakness ( RUE flaccid paralysis; RLE able to flex at hip to raiseleg off bed and maintainknee extension.) ICD10 Worksheet Patient Problems: Problems Problem Status Onset Aphasia due to recent cerebrovascular accident (CVA) Acute Cerebrovascular accident (CVA) due to occlusion of left middle cerebral artery Acute Hemiplegia and hemiparesis following cerebral infarction affecting right dominant side Acute Neuropathic pain Acute Headache Acute
[2016-05-08] MEDS: EFAVIRENZ 600 MG TAB PO SCH (21:39)
[2016-05-08] MEDS: ATORVASTATIN CALCIUM 40 MG TAB PO SCH (21:40)
[2016-05-09] MEDS: LEVOTHYROXINE 125 MCG TAB PO SCH (06:04)
[2016-05-09] MEDS: DIDANOSINE 400 MG PO SCH (06:04)
[2016-05-09] MEDS: ENOXAPARIN 40 MG/0.4 ML SYR SC SCH (07:57)
[2016-05-09] MEDS: ASPIRIN 325 MG TAB PO SCH (07:57)
[2016-05-09] MEDS: ZIDOVUDINE 300 MG PO SCH ×2 (07:58→20:43)
[2016-05-09] MEDS: NYSTATIN POWDER 15 GM BTL TP SCH ×3 (07:58→20:44)
[2016-05-09] MEDS: FLUoxetine 20 MG CAP PO SCH (07:58)
--- NOTE | 2016-05-09 09:52 | SOAPPROG ---
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 Initial FIM 30 on 04/20/16; improved to 53 on 04/25/16; to 67 as of ; to 76 as of 05/09/16. Walked 80' quad cane with min A of 2. PT notes increased flexor tome RLE but not interfering and no indication for muscle relaxant. Kamila'cj CGA,L. Accomplished car t'cj with . CGA bathing; CGA LB dressing, toileting. Continue physical therapy and occupational therapy to optimize mobility and activities of daily living. Escitalopram started in hospital, changed on 04/18/16 to fluoxetine 20 mg p.o. q. day in keeping with the protocol of the FLAME trial, which showed improved recovery of motor function in hemiplegic strokes. * Dysphagia and expressive greater than receptive aphasia. Advanced to regular texture diet & thin liquids. Expressive aphasia is improving, able to speak brief sentences; receptive is much improved. Continue Speech and Language Pathology. Able to swallow pills, including efavirenz capsule. * Urinary incontinence. Continue condom catheter at night. Improved with timed voiding q.2 hours and with ultrasound bladder scans to ensure complete voiding. UA wnl 04/25/16. * Unclear etiology of the stroke. He has a monitor and storage bin tender. He has followup planned with pressure steamer tender, Dr. Barnes 05/22/16 to evaluate for any occult atrial fibrillation. He is being treated with aspirin 325 mg p.o. q. day, as well as atorvastatin as stroke preventive. Question of E-stim affecting heart monitor d /w Dr. Barnes: no affect, proceed with E-stim. * Anemia, macrocytic. Improved 04/26/16 with normal B12, folate, retics. Still markedly macrocytic, due to HIV meds? Chronic stable conditions * Human immunodeficiency virus, well controlled. Continue current medications. * Hypothyroidism with adequate supplementation. Continue current levothyroxine dose. * Dehydration with dry mucous membranes and erythema to the posterior hard palate and the soft palate. Resolved after IV hydration 04/22/16. Encourage adequate PO hydration. * MEJIA and increased R tongue deviation 04/20/16: head CT w/out bleed. * Cough, productive, CXR c/w bronchitis, CBC with leukocytosis and left shift. Treated with azithromycin 5 days. Cough is resolved. * Transaminase elevation. Likely due to antiretrovirals, randy efavirenz and didanosine; not likely due to zidovudine. Mild, no change in medications indicated. Hep C neg. * DVT prophylaxis. He will be treated with enoxaparin 40 mg subcutaneous q. day until his mobility improves or sufficient time has passed since the stroke to have reduced risk of deep venous thrombosis. * No visual field cut per occupational therapy. His subjective experience of blurred vision is most likely related to the cerebrovascular accident. The other possibility would be retinal involvement due to the didanosine. He will be observed for improvement. Attended staffing, 15 min. D/W case mgmt, nursing, PT, OT, LEAD JAVASCRIPT ENGINEER. Making good progress. Stairs in the home continue to be a barrier. Continue planned discharge 05/31/16. 05/09/16 13:18 Subjective: No complaints. Reports improved strength R leg. No f/c, cough/dyspnea, n/v/c/ d. Objective: Vital Signs Temp Pulse Resp BP Pulse Ox 36.2 C 68 16 111/77 98 05/09/16 08:00 05/09/16 08:00 05/09/16 08:00 05/09/16 08:00 05/09/16 08:00 Laboratory Results 04/26/16 05:35 04/19/16 17:57 05/08/16 05/09/16 05/10/16 05:59 05:59 05:59 Intake Total 1250 2070 150 Output Total 650 1550 800 Balance 600 520 -650 - Time Spent With Patient Time Spent With Patient: Greater than 35 minutes floor time today, including more than 50% of time incoordination of care during staffing, and counseling patient. Physical Exam - Physical Exam General Appearance: WD/WN, alert, no apparent distress Respiratory: No respiratory distress, No accessory muscle use Cardiac/Chest: No edema Skin: normal color, warm/dry Neuro/Psych: alert, normal mood/affect, aphasia (Expressive), motor weakness ( RUE) ICD10 Worksheet Patient Problems: Problems Problem Status Onset Aphasia due to recent cerebrovascular accident (CVA) Acute Cerebrovascular accident (CVA) due to occlusion of left middle cerebral artery Acute Hemiplegia and hemiparesis following cerebral infarction affecting right dominant side Acute Neuropathic pain Acute Headache Acute
[2016-05-09] MEDS: POLYETHYLENE GLYCOL 3350 17 GM PKT PO SCH (10:20)
[2016-05-09] MEDS: ATORVASTATIN CALCIUM 40 MG TAB PO SCH (20:42)
[2016-05-09] MEDS: EFAVIRENZ 600 MG TAB PO SCH (20:43)
[2016-05-10] MEDS: LEVOTHYROXINE 25 MCG TAB PO SCH (06:18)
[2016-05-10] MEDS: LEVOTHYROXINE 150 MCG TAB PO SCH (06:18)
[2016-05-10] MEDS: DIDANOSINE 400 MG PO SCH (06:20)
[2016-05-10] MEDS: POLYETHYLENE GLYCOL 3350 17 GM PKT PO SCH (08:17)
[2016-05-10] MEDS: SENNOSIDES 1 TAB PO PRN (08:19)
[2016-05-10] MEDS: NYSTATIN POWDER 15 GM BTL TP SCH ×3 (08:19→21:22)
[2016-05-10] MEDS: ASPIRIN 325 MG TAB PO SCH (08:19)
[2016-05-10] MEDS: ZIDOVUDINE 300 MG PO SCH ×2 (08:20→21:18)
[2016-05-10] MEDS: FLUoxetine 20 MG CAP PO SCH (08:20)
[2016-05-10] MEDS: ENOXAPARIN 40 MG/0.4 ML SYR SC SCH (08:20)
--- NOTE | 2016-05-10 10:43 | SOAPPROG ---
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 Initial FIM 30 on 04/20/16; improved to 53 on 04/25/16; to 67 as of ; to 76 as of 05/09/16. Walked 80' quad cane with min A of 2. PT notes increased flexor tone RLE but not interfering and no indication for muscle relaxant. T'cj CGA. Accomplished car t'cj with . CGA bathing; CGA LB dressing, toileting. Continue physical therapy and occupational therapy to optimize mobility and activities of daily living. Escitalopram started in hospital, changed on 04/18/16 to fluoxetine 20 mg p.o. q. day in keeping with the protocol of the FLAME trial, which showed improved recovery of motor function in hemiplegic strokes. * Dysphagia and expressive greater than receptive aphasia. Advanced to regular texture diet & thin liquids. Expressive aphasia is improving, able to speak brief sentences; receptive is much improved. Continue Speech and Language Pathology. Able to swallow pills, including efavirenz capsule. * Urinary incontinence. Much improved, no longer needing condom catheter at night. * Unclear etiology of the stroke. He has a clin asst. He has followup planned with supervisor operations, Dr. Barnes 05/22/16 to evaluate for any occult atrial fibrillation. He is being treated with aspirin 325 mg p.o. q. day, as well as atorvastatin as stroke preventive. Question of E-stim affecting heart monitor d /w Dr. Barnes: no affect, proceed with E-stim. * Anemia, macrocytic. Improved 04/26/16 with normal B12, folate, retics. Still markedly macrocytic, due to HIV meds? Chronic stable or resolved conditions * Human immunodeficiency virus, well controlled. Continue current medications. * Hypothyroidism with adequate supplementation. Continue current levothyroxine dose. * Dehydration with dry mucous membranes and erythema to the posterior hard palate and the soft palate. Resolved after IV hydration 04/22/16. Encourage adequate PO hydration. * MEJIA and increased R tongue deviation 04/20/16: head CT w/out bleed. * Cough, productive, CXR c/w bronchitis, CBC with leukocytosis and left shift. Treated with azithromycin 5 days. Cough is resolved. * Transaminase elevation. Likely due to antiretrovirals, randy efavirenz and didanosine; not likely due to zidovudine. Mild, no change in medications indicated. Hep C neg. * DVT prophylaxis. He will be treated with enoxaparin 40 mg subcutaneous q. day until his mobility improves or sufficient time has passed since the stroke to have reduced risk of deep venous thrombosis. * No visual field cut per occupational therapy. His subjective experience of blurred vision is most likely related to the cerebrovascular accident. The other possibility would be retinal involvement due to the didanosine. He will be observed for improvement. Making good progress. Stairs in the home continue to be a barrier. Continue planned discharge 05/31/16. 05/10/16 10:41 Subjective: No complaints. Slept well Reports he did not use condom cath overnight and was continent. Objective: Vital Signs Temp Pulse Resp BP Pulse Ox 36.7 C 72 16 113/78 95 05/10/16 07:40 05/10/16 07:40 05/10/16 07:40 05/10/16 07:40 05/10/16 07:40 Laboratory Results 04/26/16 05:35 04/19/16 17:57 05/09/16 05/10/16 05/11/16 05:59 05:59 05:59 Intake Total 2070 586 640 Output Total 1550 1700 Balance 520 -1114 640 Physical Exam - Physical Exam General Appearance: WD/WN, alert, no apparent distress Respiratory: No respiratory distress, No accessory muscle use Skin: normal color, warm/dry Neuro/Psych: alert, normal mood/affect, aphasia (Expressive), motor weakness ( RUE flaccid paralysis. Self-propels wheelchair in [place] independently. ) ICD10 Worksheet Patient Problems: Problems Problem Status Onset Aphasia due to recent cerebrovascular accident (CVA) Acute Cerebrovascular accident (CVA) due to occlusion of left middle cerebral artery Acute Hemiplegia and hemiparesis following cerebral infarction affecting right dominant side Acute Neuropathic pain Acute Headache Acute
--- NOTE | 2016-05-10 20:24 | SOAPPROG ---
SOAP Progress Note Assessment/Plan: Assessment: Acupuncture services were requested post-stroke by Dr. Oviedo. This patient has no movement in his R arm and is aphasic. He seems cognitively aware and is able to answer yes and no questions. I asked him to point to the part of his body that was "the most frustrating". He pointed to his R hand. There is no movement or motor control. Treatment: L side scalp acupuncture: Seech I area Speech II area x 3 Du 20-23 Auricular: Bilateral BFA for HEALTH AND HUMAN PERFORMANCE PROFESSOR: Cingular Girate [place] 2 Ros[place] Left side: HT 9 Estrellita Well for acute stroke, reduce cerebral inflammation. PC 9 Estrellita Well for acute stroke, reduce cerebral inflammation. GASTON 11 Estrellita Well for acute stroke, reduce cerebral inflammation. LI [address] meridian, mirrors Speech I area/ST 8 (temporal). Ling Gu Relax the LB Da Stacy Relax the LB HT 8 Balance sleep and wake, relax the tongue. HT 5 Tx apashia HT 4, 7 Balance GB, relax the shoulders HT 3 He Se, Balance GB, KI HT 3-8 Balances GB and mirror Speech II area (parietal). GASTON 5 Resolve Phlegm, Balance BL meridian GASTON 9 Balance BL meridian, decrease tension in flexion and extension, base of skull/occiput ST 36 Increase Qi and blood GB 34 Empirical point to relax tendons GB 35-39 Decrease shoulder, head, and neck tension, balance GB Note: no points done on ankle or feet due to compression stockings. Patient had a visitor before the treatment had started. I asked him if he had had a lot of visitors and if he wanted them. "Yes" to the first question, "no" to the latter. Relayed this information to his nurse to discuss management of visitors with his partner. Plan: The best frequency to treat the symptoms of stroke is daily. The best window of time is three weeks to three months. I will discuss this with his providers and care givers. My recommendations is a minimum of two times per week with needles retained 45 minutes - 1 hour each time. 04/26/16 18:26 05/03/16 16:57 Assessment: Acupuncture services were requested post-stroke by Dr. Oviedo. This patient has no movement in his R arm and is aphasic. He seems cognitively aware and is able to answer yes and no questions. I asked him to point to the part of his body that was "the most frustrating". He pointed to his R hand. There is no movement or motor control. Today he was able to lift and straighten his R leg - straight leg raise, initiated from the hip. The patient had some apprehension about acupuncture as it is "new" and does not love the needles, but felt it helped and wants to continue. Treatment: L side scalp acupuncture: Speech I area Speech II area x 3 Speech III Du 22 Auricular: L BFA for HEALTH AND HUMAN PERFORMANCE PROFESSOR: Cingular Girate [place] 2 [place] [place] Left side: LI [address] meridian, mirrors Speech I area/ST 8 (temporal). SI 3 Relax the spine and reduce any spasms in paraspinals, balance BL meridian. SJ 3 Relax the neck, balance the GB meridian, improve blood flow in lateral neck. HT 8 Balance sleep and wake, relax the tongue. HT 5 Tx apashia HT 4, 7 Balance GB, relax the shoulders ST 36 Increase Qi and blood GB 34 Empirical point to relax tendons SP [address] meridian KI 10 Balance the BL meridian Note: no points done on ankle or feet due to compression stockings. Ware were retained for forty minutes. Plan: Discussed a treatment plan with his partner, Roe. We will try to arrange acupuncture two times per week. 05/07/16 17:40 Patient is regaining strength and movement from his R hip. He has little movement in his R knee, R arm, R elbow, R forearm, and R hand. Through gesturing and yes/no questions the patient indicated he has less sensation below his R elbow and R hand than his upper arm - bicep, deltoid, and tricep. He continues to have difficulty pulling up words, but is able to speak in longer sentences when he offers information rather than asked a question. He seems to be able to comprehend what is being said or asked, but has difficulty finding the words. He did express apprehension about acupuncture (some level of needle phobia), but he would like to continue with the treatments. The treatment today has three main focuses: scalp acupuncture to improve his speech, neurological to reduce inflammation and swelling (by improving blood flow and circulation) that may contribute to any of the symptoms of the stroke, and "direct imaging" of the areas affected by the stroke: tongue, elbow, forearm , hand, and knee. Treatment: L side scalp acupuncture: Seech I area Speech II area x 2 Speech III Auricular: Bilateral BFA for HEALTH AND HUMAN PERFORMANCE PROFESSOR: Cingular Girate [place] 2 [place] [place] Left side: LI [address] meridian, mirrors Speech I area/ST 8 (temporal). HT 8 Balance sleep and wake, relax the tongue. HT 5 Tx apashia HT 4, 7 Balance GB, relax the shoulders HT 3 x 3 lyric He Se, Balance GB, KI, image elbow and knee. HT 3-8 Balances GB and mirror Speech II area (parietal). PC 3 x 3 Balance the LR meridian. Reduce LR Wind. Image the knee and elbow. GASTON 5 Resolve Phlegm, Balance BL meridian GASTON 9 Balance BL meridian, decrease tension in flexion and extension, base of skull/occiput GASTON 10 Relax the throat, Balance the BL meridian ST [address] 35 image the elbow and knee GB 34 Empirical point to relax tendons GB 35-39 Decrease shoulder, head, and neck tension, balance GB Du Bi image the elbow and knee Note: no points done on ankle or feet due to compression stockings. Treatment chosen using the principles of Dr Carrera's Balance Method. Thirty-eight needles inserted and retained approximately forty minutes. 05/10/ 20:12 Patient is able to answer some questions with more than "yes or no". He still seems to have little to no sensation or movement in his R arm and hand. His partner relayed to me improved speech following the previous acupuncture treatment. Treatment: L side scalp acupuncture: Seech I area Speech II area x 2 Speech III Motor line Sensory line Auricular: Bilateral BFA for HEALTH AND HUMAN PERFORMANCE PROFESSOR: Cingular Girate [place] 2 [place] Left side: LI [address] meridian, mirrors Speech I area/ST 8 (temporal). SI 3 SI 4 SJ 4 HT 5 Tx apashia HT 3 x 3 lyric He Se, Balance GB, KI, image elbow and knee. HT 3-7 Balances GB and mirror Speech II area (parietal). GASTON 5 Resolve Phlegm, Balance BL meridian ST 36 Increase Qi and blood GB 34 Empirical point to relax tendons GB 35-41 Decrease shoulder, head, and neck tension, balance GB. Image parietal area. BL 65 (deep insertion), relax the spine, improve flexion and extension. Alma Rosa point. Improve ROM on BL meridian/paraspinal muscles. GB 40, 41 Relax the occiput, improve bloodflow. KI 3 Balance BL meridian. Improve flexion, extension, and side-bending in cervical spine. LR 3 Move the blood. Improve circulation. Treatment chosen using the principles of Dr Carrera's Balance Method. Objective: Vital Signs Temp Pulse Resp BP Pulse Ox 36.7 C 72 16 113/78 95 05/10/16 07:40 05/10/16 07:40 05/10/16 07:40 05/10/16 07:40 05/10/16 07:40 Laboratory Results 04/26/16 05:35 04/19/16 17:57 05/09/16 05/10/16 05/11/16 05:59 05:59 05:59 Intake Total 2070 586 1710 Output Total 1550 1700 1550 Balance 520 -1114 160 ICD10 Worksheet Patient Problems: Problems Problem Status Onset Aphasia due to recent cerebrovascular accident (CVA) Acute Cerebrovascular accident (CVA) due to occlusion of left middle cerebral artery Acute Hemiplegia and hemiparesis following cerebral infarction affecting right dominant side Acute Neuropathic pain Acute Headache Acute
[2016-05-10] MEDS: ATORVASTATIN CALCIUM 40 MG TAB PO SCH (21:16)
[2016-05-10] MEDS: EFAVIRENZ 600 MG TAB PO SCH (21:18)
[2016-05-11] MEDS: ACETAMINOPHEN 325 MG TAB PO PRN (01:49)
[2016-05-11] MEDS: LEVOTHYROXINE 125 MCG TAB PO SCH (06:23)
[2016-05-11] MEDS: DIDANOSINE 400 MG PO SCH (06:24)
[2016-05-11] MEDS: ASPIRIN 325 MG TAB PO SCH (08:48)
[2016-05-11] MEDS: POLYETHYLENE GLYCOL 3350 17 GM PKT PO SCH (08:48)
[2016-05-11] MEDS: FLUoxetine 20 MG CAP PO SCH (08:48)
[2016-05-11] MEDS: ENOXAPARIN 40 MG/0.4 ML SYR SC SCH (08:48)
[2016-05-11] MEDS: NYSTATIN POWDER 15 GM BTL TP SCH ×2 (08:48→16:17)
[2016-05-11] MEDS: SENNOSIDES 1 TAB PO PRN (08:49)
[2016-05-11] MEDS: ZIDOVUDINE 300 MG PO SCH ×2 (08:49→20:05)
--- NOTE | 2016-05-11 13:16 | SOAPPROG ---
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 Initial FIM 30 on 04/20/16; improved to 53 on 04/25/16; to 67 as of ; to 76 as of 05/09/16. Walked 80' quad cane with min A of 1. CLimbed and descended 3 stairs on 05/11/16. PT notes increased flexor tone RLE but not interfering and no indication for muscle relaxant. T'cj CGA. Accomplished car t'cj with . CGA bathing; CGA LB dressing, toileting. Continue physical therapy and occupational therapy to optimize mobility and activities of daily living. Escitalopram started in hospital, changed on 04/18/16 to fluoxetine 20 mg p.o. q. day in keeping with the protocol of the FLAME trial, which showed improved recovery of motor function in hemiplegic strokes. * Dysphagia and expressive greater than receptive aphasia. Advanced to regular texture diet & thin liquids. Expressive aphasia is improving, able to speak brief sentences; receptive is much improved. Continue Speech and Language Pathology. Able to swallow pills, including efavirenz capsule. * Urinary incontinence. Much improved, no longer needing condom catheter at night as of 05/09/16. * Unclear etiology of the stroke. He has a threat monitoring analyst. He has followup planned with pastrycook, Dr. Barnes 05/22/16 to evaluate for any occult atrial fibrillation. He is being treated with aspirin 325 mg p.o. q. day, as well as atorvastatin as stroke preventive. Question of E-stim affecting heart monitor d /w Dr. Barnes: no affect, proceed with E-stim. * Anemia, macrocytic. Improved 04/26/16 with normal B12, folate, retics. Still markedly macrocytic, due to HIV meds? Chronic stable or resolved conditions * Human immunodeficiency virus, well controlled. Continue current medications. * Hypothyroidism with adequate supplementation. Continue current levothyroxine dose. * Dehydration with dry mucous membranes and erythema to the posterior hard palate and the soft palate. Resolved after IV hydration 04/22/16. Encourage adequate PO hydration. * MEJIA and increased R tongue deviation 04/20/16: head CT w/out bleed. * Cough, productive, CXR c/w bronchitis, CBC with leukocytosis and left shift. Treated with azithromycin 5 days. Cough is resolved. * Transaminase elevation. Likely due to antiretrovirals, randy efavirenz and didanosine; not likely due to zidovudine. Mild, no change in medications indicated. Hep C neg. * DVT prophylaxis. He will be treated with enoxaparin 40 mg subcutaneous q. day until his mobility improves or sufficient time has passed since the stroke to have reduced risk of deep venous thrombosis. * No visual field cut per occupational therapy. His subjective experience of blurred vision is most likely related to the cerebrovascular accident. The other possibility would be retinal involvement due to the didanosine. He will be observed for improvement. Attended family conference, 30 min. Patient and in attendance, and mother on speakerphone. D/W case mgmt, nursing, PT, OT, BRUSH OPERATOR. Stairs in the home continue to be a barrier; therapies recommending 2 rails; home visit planned. Continue planned discharge 05/31/16. 05/11/16 13:17 Subjective: No complaints. deies pain; had thigh pain last night after acupuncture and more ambulation duriong the day. had poor sleep after acupuncture, which was done later than usual. Objective: Vital Signs Temp Pulse Resp BP Pulse Ox 36.3 C 65 16 103/65 93 05/11/16 06:35 05/11/16 06:35 05/11/16 06:35 05/11/16 06:35 05/11/16 06:35 Laboratory Results 04/26/16 05:35 04/19/16 17:57 05/10/16 05/11/16 05/12/16 05:59 05:59 05:59 Intake Total 586 2010 47 Output Total 1700 7250 Balance -1114 260 472 - Time Spent With Patient Time Spent With Patient: Greater than 35 min floor time today, including more than 50% of time in coordination of care and counseling during family meeting. Physical Exam - Physical Exam General Appearance: WD/WN, alert, no apparent distress Respiratory: No respiratory distress, No accessory muscle use Cardiac/Chest: No edema Skin: normal color, warm/dry Extremities: other (NT R thigh) Neuro/Psych: alert, normal mood/affect, aphasia (Expressive), motor weakness ( RUE & RLE) ICD10 Worksheet Patient Problems: Problems Problem Status Onset Aphasia due to recent cerebrovascular accident (CVA) Acute Cerebrovascular accident (CVA) due to occlusion of left middle cerebral artery Acute Hemiplegia and hemiparesis following cerebral infarction affecting right dominant side Acute Neuropathic pain Acute Headache Acute
[2016-05-11] MEDS: EFAVIRENZ 600 MG TAB PO SCH (20:04)
[2016-05-11] MEDS: ATORVASTATIN CALCIUM 40 MG TAB PO SCH (20:04)
[2016-05-12] MEDS: LEVOTHYROXINE 25 MCG TAB PO SCH (06:05)
[2016-05-12] MEDS: LEVOTHYROXINE 150 MCG TAB PO SCH (06:05)
--- NOTE | 2016-05-12 09:11 | SOAPPROG ---
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 Initial FIM 30 on 04/20/16; improved to 53 on 04/25/16; to 67 as of ; to 76 as of 05/09/16. Walked 80' quad cane with min A of 1. CLimbed and descended 3 stairs on 05/11/16. PT notes increased flexor tone RLE but not interfering and no indication for muscle relaxant. T'cj CGA. Accomplished car t'cj with . CGA bathing; CGA LB dressing, toileting. Continue physical therapy and occupational therapy to optimize mobility and activities of daily living. Escitalopram started in hospital, changed on 04/18/16 to fluoxetine 20 mg p.o. q. day in keeping with the protocol of the FLAME trial, which showed improved recovery of motor function in hemiplegic strokes. * Dysphagia and expressive greater than receptive aphasia. Advanced to regular texture diet & thin liquids. Expressive aphasia is improving, able to speak brief sentences; receptive is much improved. Continue Speech and Language Pathology. Able to swallow pills, including efavirenz capsule. * Urinary incontinence. Much improved, no longer needing condom catheter at night as of 05/09/16. * Unclear etiology of the stroke. He has a monitoring coordinator. He has followup planned with skin drier, Dr. Barnes 05/22/16 to evaluate for any occult atrial fibrillation. He is being treated with aspirin 325 mg p.o. q. day, as well as atorvastatin as stroke preventive. Question of E-stim affecting heart monitor d /w Dr. Barnes: no affect, proceed with E-stim. * Anemia, macrocytic. Improved 04/26/16 with normal B12, folate, retics. Still markedly macrocytic, due to HIV meds? Chronic stable or resolved conditions * Human immunodeficiency virus, well controlled. Continue current medications. * Hypothyroidism with adequate supplementation. Continue current levothyroxine dose. * Dehydration with dry mucous membranes and erythema to the posterior hard palate and the soft palate. Resolved after IV hydration 04/22/16. Encourage adequate PO hydration. * MEJIA and increased R tongue deviation 04/20/16: head CT w/out bleed. * Cough, productive, CXR c/w bronchitis, CBC with leukocytosis and left shift. Treated with azithromycin 5 days. Cough is resolved. * Transaminase elevation. Likely due to antiretrovirals, randy efavirenz and didanosine; not likely due to zidovudine. Mild, no change in medications indicated. Hep C neg. * DVT prophylaxis. He will be treated with enoxaparin 40 mg subcutaneous q. day until his mobility improves or sufficient time has passed since the stroke to have reduced risk of deep venous thrombosis. * No visual field cut per occupational therapy. His subjective experience of blurred vision is most likely related to the cerebrovascular accident. The other possibility would be retinal involvement due to the didanosine. He will be observed for improvement. Dispo: Stairs in the home continue to be a barrier; therapies recommending 2 rails; home visit planned. Current planned discharge 05/31/16. Subjective: No events. No complaints this a.m. No pain or MEJIA. Objective: Vital Signs Temp Pulse Resp BP Pulse Ox 36.6 C 70 16 101/74 94 05/11/16 20:00 05/11/16 20:00 05/11/16 20:00 05/11/16 20:00 05/11/16 20:00 Laboratory Results 04/26/16 05:35 04/19/16 17:57 05/11/16 05/12/16 05/13/16 05:59 05:59 05:59 Intake Total 2010 908 Output Total 1750 375 Balance 260 533 - Pending Discharge Pending Discharge Within 24 Hours: No Pending Discharge Within 48 Hours: No Physical Exam - Physical Exam General Appearance: alert, no apparent distress Neck: full range of motion Respiratory: lungs clear, normal breath sounds Cardiac/Chest: regular rate, rhythm Abdomen: non-tender, soft Skin: normal color, warm/dry Neuro/Psych: alert, normal mood/affect, aphasia, motor weakness (right simran) ICD10 Worksheet Patient Problems: Problems Problem Status Onset Aphasia due to recent cerebrovascular accident (CVA) Acute Cerebrovascular accident (CVA) due to occlusion of left middle cerebral artery Acute Hemiplegia and hemiparesis following cerebral infarction affecting right dominant side Acute Neuropathic pain Acute Headache Acute
[2016-05-12] MEDS: ASPIRIN 325 MG TAB PO SCH (09:42)
[2016-05-12] MEDS: POLYETHYLENE GLYCOL 3350 17 GM PKT PO SCH (09:42)
[2016-05-12] MEDS: FLUoxetine 20 MG CAP PO SCH (09:43)
[2016-05-12] MEDS: ENOXAPARIN 40 MG/0.4 ML SYR SC SCH (09:44)
[2016-05-12] MEDS: ZIDOVUDINE 300 MG PO SCH ×2 (09:45→20:28)
[2016-05-12] MEDS: DIDANOSINE 400 MG PO SCH (17:43)
[2016-05-12] MEDS: ATORVASTATIN CALCIUM 40 MG TAB PO SCH (20:29)
[2016-05-12] MEDS: EFAVIRENZ 600 MG TAB PO SCH (20:29)
[2016-05-13] MEDS: LEVOTHYROXINE 125 MCG TAB PO SCH (05:42)
[2016-05-13] MEDS: DIDANOSINE 400 MG PO SCH (05:43)
[2016-05-13] MEDS: FLUoxetine 20 MG CAP PO SCH (08:16)
[2016-05-13] MEDS: ASPIRIN 325 MG TAB PO SCH (08:17)
[2016-05-13] MEDS: ENOXAPARIN 40 MG/0.4 ML SYR SC SCH (08:17)
[2016-05-13] MEDS: POLYETHYLENE GLYCOL 3350 17 GM PKT PO SCH (08:17)
[2016-05-13] MEDS: ZIDOVUDINE 300 MG PO SCH ×2 (08:19→20:57)
--- NOTE | 2016-05-13 08:41 | SOAPPROG ---
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 Initial FIM 30 on 04/20/16; improved to 53 on 04/25/16; to 67 as of ; to 76 as of 05/09/16. Walked 80' quad cane with min A of 1. CLimbed and descended 3 stairs on 05/11/16. PT notes increased flexor tone RLE but not interfering and no indication for muscle relaxant. T'cj CGA. Accomplished car t'cj with . CGA bathing; CGA LB dressing, toileting. Continue physical therapy and occupational therapy to optimize mobility and activities of daily living. Escitalopram started in hospital, changed on 04/18/16 to fluoxetine 20 mg p.o. q. day in keeping with the protocol of the FLAME trial, which showed improved recovery of motor function in hemiplegic strokes. * Dysphagia and expressive greater than receptive aphasia. Advanced to regular texture diet & thin liquids. Expressive aphasia is improving, able to speak brief sentences; receptive is much improved. Continue Speech and Language Pathology. Able to swallow pills, including efavirenz capsule. * Urinary incontinence. Much improved, no longer needing condom catheter at night as of 05/09/16. * Unclear etiology of the stroke. He has a phototypesetting equipment monitor. He has followup planned with de icer kit assembler, Dr. Barnes 05/22/16 to evaluate for any occult atrial fibrillation. He is being treated with aspirin 325 mg p.o. q. day, as well as atorvastatin as stroke preventive. Question of E-stim affecting heart monitor d /w Dr. Barnes: no affect, proceed with E-stim. * Anemia, macrocytic. Improved 04/26/16 with normal B12, folate, retics. Still markedly macrocytic, due to HIV meds? Chronic stable or resolved conditions * Human immunodeficiency virus, well controlled. Continue current medications. * Hypothyroidism with adequate supplementation. Continue current levothyroxine dose. * Dehydration with dry mucous membranes and erythema to the posterior hard palate and the soft palate. Resolved after IV hydration 04/22/16. Encourage adequate PO hydration. * MEJIA and increased R tongue deviation 04/20/16: head CT w/out bleed. * Cough, productive, CXR c/w bronchitis, CBC with leukocytosis and left shift. Treated with azithromycin 5 days. Cough is resolved. * Transaminase elevation. Likely due to antiretrovirals, randy efavirenz and didanosine; not likely due to zidovudine. Mild, no change in medications indicated. Hep C neg. * DVT prophylaxis. He will be treated with enoxaparin 40 mg subcutaneous q. day until his mobility improves or sufficient time has passed since the stroke to have reduced risk of deep venous thrombosis. * No visual field cut per occupational therapy. His subjective experience of blurred vision is most likely related to the cerebrovascular accident. The other possibility would be retinal involvement due to the didanosine. He will be observed for improvement. Dispo: Stairs in the home continue to be a barrier; therapies recommending 2 rails; home visit planned. Current planned discharge 05/31/16. Subjective: No events. Reports some insomnia but does not want any medication. Denies pain or MEJIA. Objective: Vital Signs Temp Pulse Resp BP Pulse Ox 36.4 C 73 15 110/71 93 05/13/16 06:12 05/13/16 06:12 05/13/16 06:12 05/13/16 06:12 05/13/16 06:12 Laboratory Results 04/26/16 05:35 04/19/16 17:57 05/12/16 05/13/16 05/14/16 05:59 05:59 05:59 Intake Total 908 557 Output Total 375 1350 Balance 533 -793 - Pending Discharge Pending Discharge Within 24 Hours: No Pending Discharge Within 48 Hours: No Physical Exam - Physical Exam General Appearance: alert, no apparent distress Neck: supple Respiratory: lungs clear, normal breath sounds Cardiac/Chest: regular rate, rhythm Abdomen: normal bowel sounds, non-tender, soft Skin: warm/dry Neuro/Psych: alert, normal mood/affect, aphasia, motor weakness (rright simran) ICD10 Worksheet Patient Problems: Problems Problem Status Onset Aphasia due to recent cerebrovascular accident (CVA) Acute Cerebrovascular accident (CVA) due to occlusion of left middle cerebral artery Acute Hemiplegia and hemiparesis following cerebral infarction affecting right dominant side Acute Neuropathic pain Acute Headache Acute
--- NOTE | 2016-05-13 17:34 | SOAPPROG ---
SOAP Progress Note Assessment/Plan: Assessment: Acupuncture services were requested post-stroke by Dr. Oviedo. This patient has no movement in his R arm and is aphasic. He seems cognitively aware and is able to answer yes and no questions. I asked him to point to the part of his body that was "the most frustrating". He pointed to his R hand. There is no movement or motor control. Treatment: L side scalp acupuncture: Speech I area Speech II area x 3 Du 20-23 Auricular: Bilateral BFA for PLUGGER MAN: Cingular Gyrate [place] 2 Rosas Men [place] Zero Left side: HT 9 Estrellita Well for acute stroke, reduce cerebral inflammation. PC 9 Estrellita Well for acute stroke, reduce cerebral inflammation. GASTON 11 Estrellita Well for acute stroke, reduce cerebral inflammation. LI [address] meridian, mirrors Speech I area/ST 8 (temporal). Ling Gu Relax the LB Da Stacy Relax the LB HT 8 Balance sleep and wake, relax the tongue. HT 5 Tx apashia HT 4, 7 Balance GB, relax the shoulders HT 3 He Se, Balance GB, KI HT 3-8 Balances GB and mirror Speech II area (parietal). GASTON 5 Resolve Phlegm, Balance BL meridian GASTON 9 Balance BL meridian, decrease tension in flexion and extension, base of skull/occiput ST 36 Increase Qi and blood GB 34 Empirical point to relax tendons GB 35-39 Decrease shoulder, head, and neck tension, balance GB Note: no points done on ankle or feet due to compression stockings. Patient had a visitor before the treatment had started. I asked him if he had had a lot of visitors and if he wanted them. "Yes" to the first question, "no" to the latter. Relayed this information to his nurse to discuss management of visitors with his partner. Plan: The best frequency to treat the symptoms of stroke is daily. The best window of time is three weeks to three months. I will discuss this with his providers and care givers. My recommendations is a minimum of two times per week with needles retained 45 minutes - 1 hour each time. 04/26/16 18:26 05/03/16 16:57 Assessment: Acupuncture services were requested post-stroke by Dr. Oviedo. This patient has no movement in his R arm and is aphasic. He seems cognitively aware and is able to answer yes and no questions. I asked him to point to the part of his body that was "the most frustrating". He pointed to his R hand. There is no movement or motor control. Today he was able to lift and straighten his R leg - straight leg raise, initiated from the hip. The patient had some apprehension about acupuncture as it is "new" and does not love the needles, but felt it helped and wants to continue. Treatment: L side scalp acupuncture: Speech I area Speech II area x 3 Speech III Du 22 Auricular: L BFA for PLUGGER MAN: Cingular Gyrate [place] 2 Rosas Men [place] Zero Left side: LI [address] meridian, mirrors Speech I area/ST 8 (temporal). SI 3 Relax the spine and reduce any spasms in paraspinals, balance BL meridian. SJ 3 Relax the neck, balance the GB meridian, improve blood flow in lateral neck. HT 8 Balance sleep and wake, relax the tongue. HT 5 Tx apashia HT 4, 7 Balance GB, relax the shoulders ST 36 Increase Qi and blood GB 34 Empirical point to relax tendons SP [address] meridian KI 10 Balance the BL meridian Note: no points done on ankle or feet due to compression stockings. [place] were retained for forty minutes. Plan: Discussed a treatment plan with his partner, Roe. We will try to arrange acupuncture two times per week. 05/07/16 17:40 Patient is regaining strength and movement from his R hip. He has little movement in his R knee, R arm, R elbow, R forearm, and R hand. Through gesturing and yes/no questions the patient indicated he has less sensation below his R elbow and R hand than his upper arm - bicep, deltoid, and tricep. He continues to have difficulty pulling up words, but is able to speak in longer sentences when he offers information rather than asked a question. He seems to be able to comprehend what is being said or asked, but has difficulty finding the words. He did express apprehension about acupuncture (some level of needle phobia), but he would like to continue with the treatments. The treatment today has three main focuses: scalp acupuncture to improve his speech, neurological to reduce inflammation and swelling (by improving blood flow and circulation) that may contribute to any of the symptoms of the stroke, and "direct imaging" of the areas affected by the stroke: tongue, elbow, forearm , hand, and knee. Treatment: L side scalp acupuncture: Seech I area Speech II area x 2 Speech III Auricular: Bilateral BFA for PLUGGER MAN: Cingular Gyrate [place] 2 Rosas Men [place] Zero Left side: LI [address] meridian, mirrors Speech I area/ST 8 (temporal). HT 8 Balance sleep and wake, relax the tongue. HT 5 Tx apashia HT 4, 7 Balance GB, relax the shoulders HT 3 x 3 lyric He Se, Balance GB, KI, image elbow and knee. HT 3-8 Balances GB and mirror Speech II area (parietal). PC 3 x 3 Balance the LR meridian. Reduce LR Wind. Image the knee and elbow. GASTON 5 Resolve Phlegm, Balance BL meridian GASTON 9 Balance BL meridian, decrease tension in flexion and extension, base of skull/occiput GASTON 10 Relax the throat, Balance the BL meridian ST [address] 35 image the elbow and knee GB 34 Empirical point to relax tendons GB 35-39 Decrease shoulder, head, and neck tension, balance GB Du Bi image the elbow and knee Note: no points done on ankle or feet due to compression stockings. Treatment chosen using the principles of Dr Carrera's Balance Method. Thirty-eight needles inserted and retained approximately forty minutes. 05/10/16 20:12 Patient is able to answer some questions with more than "yes or no". He still seems to have little to no sensation or movement in his R arm and hand. His partner relayed to me improved speech following the previous acupuncture treatment. Treatment: L side scalp acupuncture: Speech I area Speech II area x 2 Speech III Motor line Sensory line Auricular: Bilateral BFA for PLUGGER MAN: Cingular Gyrate [place] 2 Rosas Men [place] Zero Left side: LI [address] meridian, mirrors Speech I area/ST 8 (temporal). SI 3 SI 4 SJ 4 HT 5 Tx apashia HT 3 x 3 lyric He Se, Balance GB, KI, image elbow and knee. HT 3-7 Balances GB and mirror Speech II area (parietal). GASTON 5 Resolve Phlegm, Balance BL meridian ST 36 Increase Qi and blood GB 34 Empirical point to relax tendons GB 35-41 Decrease shoulder, head, and neck tension, balance GB. Image parietal area. BL 65 (deep insertion), relax the spine, improve flexion and extension. [place] Rosa point. Improve ROM on BL meridian/paraspinal muscles. GB 40, 41 Relax the occiput, improve bloodflow. KI 3 Balance BL meridian. Improve flexion, extension, and side-bending in cervical spine. LR 3 Move the blood. Improve circulation. Treatment chosen using the principles of Dr Carrera's Balance Method. 05/13/16 17:21 With the direction of Miles's physical therapist, Oleksandr, we will do local acupuncture points on the affected (R) side to encourage dorsiflexion of his foot. Miles continues to improve his vocabulary and was able to verbalize Oleksandr' s name today. He also transferred from his wheelchair to his bed on his own. Treatment: L side scalp acupuncture: Speech I area Speech II area x 3 Speech II Motor Line for Scalp Acupuncture Sensory Line for Scalp Acupuncture Auricular: Bilateral BFA for PLUGGER MAN: Cingular Gyrate [place] 2 Rosas Men [place] Zero Left side: HT 8 Balance sleep and wake, relax the tongue. HT 5 Tx apashia HT 4, 7 Balance GB, relax the shoulders HT 3 He Se, Balance GB, KI HT 3-8 Balances GB and mirror Speech II area (parietal). GASTON 5 Resolve Phlegm, Balance BL meridian GASTON 9 Balance BL meridian, decrease tension in flexion and extension, base of skull/occiput GASTON 10 Estrellita [place] point, [place] point, relax the throat. LR 3, 7, 8 KI 2, 3, 7 SP 3, 4, 6, 9 x 2 Right Side: LI [address] meridian, mirrors Speech I area/ST 8 (temporal). Ling Gu Relax the LB Da Stacy Relax the LB SI 3 (deep) master point of spine, improve flexion and extension, balance the BL meridian LR 3 x 2 a SP 3, [address] bottom of foot [address] 36 Increase Qi and blood GB 34 Empirical point to relax tendons GB 35-39 Decrease shoulder, head, and neck tension, balance GB Local muscles stimulated and fasciculation achieved on anterior tibialis and peroneals (ST 36 -37 and GB 34-35). VMO was stimulated without result. Scalp acupuncture needles retained for 1 h 20 minutes. [place] retained on body for 40 minutes. Objective: Vital Signs Temp Pulse Resp BP Pulse Ox 36.4 C 73 15 110/71 93 05/13/16 06:12 05/13/16 06:12 05/13/16 06:12 05/13/16 06:12 05/13/16 06:12 Laboratory Results 04/26/16 05:35 04/19/16 17:57 05/12/16 05/13/16 05/14/16 05:59 05:59 05:59 Intake Total 908 557 236 Output Total 375 1350 Balance 533 -793 236 ICD10 Worksheet Patient Problems: Problems Problem Status Onset Aphasia due to recent cerebrovascular accident (CVA) Acute Cerebrovascular accident (CVA) due to occlusion of left middle cerebral artery Acute Hemiplegia and hemiparesis following cerebral infarction affecting right dominant side Acute Neuropathic pain Acute Headache Acute
[2016-05-13] MEDS: EFAVIRENZ 600 MG TAB PO SCH (20:56)
[2016-05-13] MEDS: ATORVASTATIN CALCIUM 40 MG TAB PO SCH (20:57)
[2016-05-14] MEDS: DIDANOSINE 400 MG PO SCH (06:08)
[2016-05-14] MEDS: LEVOTHYROXINE 150 MCG TAB PO SCH (06:09)
[2016-05-14] MEDS: LEVOTHYROXINE 25 MCG TAB PO SCH (06:09)
[2016-05-14] MEDS: ASPIRIN 325 MG TAB PO SCH (07:55)
[2016-05-14] MEDS: FLUoxetine 20 MG CAP PO SCH (07:55)
[2016-05-14] MEDS: ENOXAPARIN 40 MG/0.4 ML SYR SC SCH (07:55)
[2016-05-14] MEDS: POLYETHYLENE GLYCOL 3350 17 GM PKT PO SCH (07:56)
[2016-05-14] MEDS: ZIDOVUDINE 300 MG PO SCH ×2 (07:57→20:59)
--- NOTE | 2016-05-14 14:19 | SOAPPROG ---
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 Initial FIM 30 on 04/20/16; improved to 53 on 04/25/16; to 67 as of ; to 76 as of 05/09/16. Walked 80' quad cane with min A of 1. Climbed and descended 3 stairs on 05/11/16. PT notes increased flexor tone RLE but not interfering and no indication for muscle relaxant. T'cj CGA. Accomplished car t'cj with . CGA bathing; CGA LB dressing, toileting. Continue physical therapy and occupational therapy to optimize mobility and activities of daily living. Escitalopram started in hospital, changed on 04/18/16 to fluoxetine 20 mg p.o. q. day in keeping with the protocol of the FLAME trial, which showed improved recovery of motor function in hemiplegic strokes. * Dysphagia and expressive greater than receptive aphasia. Advanced to regular texture diet & thin liquids. Expressive aphasia is improving, able to speak brief sentences; receptive is much improved. Continue Speech and Language Pathology. Able to swallow pills, including efavirenz capsule. * Urinary incontinence. Much improved, no longer needing condom catheter at night as of 05/09/16. * Unclear etiology of the stroke. He has a tax representative. He has followup planned with investigation division captain, Dr. Barnes 05/22/16 to evaluate for any occult atrial fibrillation. He is being treated with aspirin 325 mg p.o. q. day, as well as atorvastatin as stroke preventive. Question of E-stim affecting heart monitor d /w Dr. Barnes: no affect, proceed with E-stim. * Anemia, macrocytic. Improved 04/26/16 with normal B12, folate, retics. Still markedly macrocytic, due to HIV meds? Chronic stable or resolved conditions * Human immunodeficiency virus, well controlled. Continue current medications. * Hypothyroidism with adequate supplementation. Continue current levothyroxine dose. * Dehydration with dry mucous membranes and erythema to the posterior hard palate and the soft palate. Resolved after IV hydration 04/22/16. Encourage adequate PO hydration. * MEJIA and increased R tongue deviation 04/20/16: head CT w/out bleed. * Cough, productive, CXR c/w bronchitis, CBC with leukocytosis and left shift. Treated with azithromycin 5 days. Cough is resolved. * Transaminase elevation. Likely due to antiretrovirals, randy efavirenz and didanosine; not likely due to zidovudine. Mild, no change in medications indicated. Hep C neg. * DVT prophylaxis. He will be treated with enoxaparin 40 mg subcutaneous q. day until his mobility improves or sufficient time has passed since the stroke to have reduced risk of deep venous thrombosis. * No visual field cut per occupational therapy. His subjective experience of blurred vision is most likely related to the cerebrovascular accident. The other possibility would be retinal involvement due to the didanosine. He will be observed for improvement. Stairs in the home continue to be a barrier; therapies recommending 2 rails; home visit planned. Continue planned discharge 05/31/16. 05/14/16 14:17 Subjective: No complaints. Walking and transferring better. Objective: Vital Signs Temp Pulse Resp BP Pulse Ox 36.8 C 76 16 114/77 94 05/14/16 06:36 05/14/16 06:36 05/14/16 06:36 05/14/16 06:36 05/14/16 06:36 Laboratory Results 04/26/16 05:35 04/19/16 17:57 05/13/16 05/14/16 05/15/16 05:59 05:59 05:59 Intake Total 557 586 450 Output Total 1350 300 300 Balance -793 286 150 Physical Exam - Physical Exam General Appearance: WD/WN, alert, no apparent distress Respiratory: No respiratory distress, No accessory muscle use Skin: normal color, warm/dry Neuro/Psych: alert, normal mood/affect, abnormal gait (Ambulating with trekking pole and CGAper PT. Raises R hip to allow R leg to step through without catching foot on floor, steadying with trekking pole in L hand.), motor weakness (RUE & RLE) ICD10 Worksheet Patient Problems: Problems Problem Status Onset Aphasia due to recent cerebrovascular accident (CVA) Acute Cerebrovascular accident (CVA) due to occlusion of left middle cerebral artery Acute Hemiplegia and hemiparesis following cerebral infarction affecting right dominant side Acute Neuropathic pain Acute Headache Acute
[2016-05-14] MEDS: ATORVASTATIN CALCIUM 40 MG TAB PO SCH (20:59)
[2016-05-14] MEDS: EFAVIRENZ 600 MG TAB PO SCH (20:59)
[2016-05-15] MEDS: DIDANOSINE 400 MG PO SCH (05:48)
[2016-05-15] MEDS: LEVOTHYROXINE 125 MCG TAB PO SCH (05:48)
[2016-05-15] MEDS: POLYETHYLENE GLYCOL 3350 17 GM PKT PO SCH (08:32)
[2016-05-15] MEDS: FLUoxetine 20 MG CAP PO SCH (08:32)
[2016-05-15] MEDS: ASPIRIN 325 MG TAB PO SCH (08:32)
[2016-05-15] MEDS: ENOXAPARIN 40 MG/0.4 ML SYR SC SCH (08:32)
[2016-05-15] MEDS: ZIDOVUDINE 300 MG PO SCH ×2 (08:36→20:57)
--- NOTE | 2016-05-15 14:05 | SOAPPROG ---
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 Initial FIM 30 on 04/20/16; improved to 53 on 04/25/16; to 67 as of ; to 76 as of 05/09/16. Walked 80' quad cane with min A of 1. Climbed and descended 3 stairs on 05/11/16. PT notes increased flexor tone RLE but not interfering and no indication for muscle relaxant. T'cj CGA. Accomplished car t'cj with . CGA bathing; CGA LB dressing, toileting. Continue physical therapy and occupational therapy to optimize mobility and activities of daily living. Escitalopram started in hospital, changed on 04/18/16 to fluoxetine 20 mg p.o. q. day in keeping with the protocol of the FLAME trial, which showed improved recovery of motor function in hemiplegic strokes. * Dysphagia and expressive greater than receptive aphasia. Advanced to regular texture diet & thin liquids. Expressive aphasia is improving, able to speak brief sentences; receptive is much improved. Continue Speech and Language Pathology. Able to swallow pills, including efavirenz capsule. * Urinary incontinence. Much improved, no longer needing condom catheter at night as of 05/09/16. * Unclear etiology of the stroke. He has a cardiac rehabilitation program director. He has followup planned with paper stacker, Dr. Barnes 05/22/16 to evaluate for any occult atrial fibrillation. He is being treated with aspirin 325 mg p.o. q. day, as well as atorvastatin as stroke preventive. Question of E-stim affecting heart monitor d /w Dr. Barnes: no affect, proceed with E-stim. * Anemia, macrocytic. Improved 04/26/16 with normal B12, folate, retics. Still markedly macrocytic, due to HIV meds? Chronic stable or resolved conditions * Human immunodeficiency virus, well controlled. Continue current medications. * Hypothyroidism with adequate supplementation. Continue current levothyroxine dose. * Dehydration with dry mucous membranes and erythema to the posterior hard palate and the soft palate. Resolved after IV hydration 04/22/16. Encourage adequate PO hydration. * MEJIA and increased R tongue deviation 04/20/16: head CT w/out bleed. * Cough, productive, CXR c/w bronchitis, CBC with leukocytosis and left shift. Treated with azithromycin 5 days. Cough is resolved. * Transaminase elevation. Likely due to antiretrovirals, randy efavirenz and didanosine; not likely due to zidovudine. Mild, no change in medications indicated. Hep C neg. * DVT prophylaxis. He will be treated with enoxaparin 40 mg subcutaneous q. day until his mobility improves or sufficient time has passed since the stroke to have reduced risk of deep venous thrombosis. * No visual field cut per occupational therapy. His subjective experience of blurred vision is most likely related to the cerebrovascular accident. The other possibility would be retinal involvement due to the didanosine. He will be observed for improvement. Stairs in the home continue to be a barrier; therapies recommending 2 rails; home visit planned. Continue planned discharge 05/31/16. 05/15/16 14:05 Subjective: No complaints. Denies f/c, dough/dyspnea. Objective: Vital Signs Temp Pulse Resp BP Pulse Ox 36.7 C 76 16 102/76 95 05/15/16 05:54 05/15/16 05:54 05/15/16 05:54 05/15/16 05:54 05/15/16 05:54 Laboratory Results 04/26/16 05:35 04/19/16 17:57 05/14/16 05/15/16 05/16/16 05:59 05:59 05:59 Intake Total 586 1490 686 Output Total 300 1750 900 Balance 286 -260 -214 Physical Exam - Physical Exam General Appearance: WD/WN, alert, no apparent distress Respiratory: No respiratory distress, No accessory muscle use Skin: normal color, warm/dry Neuro/Psych: alert, normal mood/affect, aphasia (Expressive; improving, speaks short sentences with famiiar phrases.), motor weakness (RUE flaccid paralysis) ICD10 Worksheet Patient Problems: Problems Problem Status Onset Aphasia due to recent cerebrovascular accident (CVA) Acute Cerebrovascular accident (CVA) due to occlusion of left middle cerebral artery Acute Hemiplegia and hemiparesis following cerebral infarction affecting right dominant side Acute Neuropathic pain Acute Headache Acute
[2016-05-15] MEDS: ATORVASTATIN CALCIUM 40 MG TAB PO SCH (20:56)
[2016-05-15] MEDS: EFAVIRENZ 600 MG TAB PO SCH (20:57)
[2016-05-16] MEDS: LEVOTHYROXINE 25 MCG TAB PO SCH (06:01)
[2016-05-16] MEDS: DIDANOSINE 400 MG PO SCH (06:02)
[2016-05-16] MEDS: LEVOTHYROXINE 150 MCG TAB PO SCH (06:03)
[2016-05-16] MEDS: POLYETHYLENE GLYCOL 3350 17 GM PKT PO SCH (07:58)
[2016-05-16] MEDS: ENOXAPARIN 40 MG/0.4 ML SYR SC SCH (07:59)
[2016-05-16] MEDS: ASPIRIN 325 MG TAB PO SCH (07:59)
[2016-05-16] MEDS: ZIDOVUDINE 300 MG PO SCH ×2 (08:00→20:28)
[2016-05-16] MEDS: FLUoxetine 20 MG CAP PO SCH (08:01)
--- NOTE | 2016-05-16 13:57 | SOAPPROG ---
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 Initial FIM 30 on 04/20/16; improved to 53 on 04/25/16; to 67 as of ; to 76 as of 05/09/16; 83 as of 05/16/16. Walked 110' quad cane with min A of 1. Climbed and descended 9 stairs one rail. PT notes increased flexor tone RLE but not interfering and no indication for muscle relaxant. T'cj CGA. Accomplished car t'cj with . CGA LB dressing for occ LOB. Reduced LLE proprioception and motor planning deficit. Continue physical therapy and occupational therapy to optimize mobility and activities of daily living. Escitalopram started in hospital, changed on 04/18/16 to fluoxetine 20 mg p.o. q. day in keeping with the protocol of the FLAME trial, which showed improved recovery of motor function in hemiplegic strokes. * Dysphagia and expressive greater than receptive aphasia. Advanced to regular texture diet & thin liquids. Expressive aphasia is improving, able to speak brief sentences; receptive is much improved. Continue Speech and Language Pathology. Able to swallow pills, including efavirenz capsule. * Urinary incontinence. Much improved, no longer needing condom catheter at night as of 05/09/16. * Unclear etiology of the stroke. He has a radiation monitor. He has followup planned with lever tender, Dr. Barnes 05/22/16 to evaluate for any occult atrial fibrillation. He is being treated with aspirin 325 mg p.o. q. day, as well as atorvastatin as stroke preventive. Question of E-stim affecting heart monitor d /w Dr. Barnes: no affect, proceed with E-stim. * Anemia, macrocytic. Improved 04/26/16 with normal B12, folate, retics. Still markedly macrocytic, due to HIV meds? Chronic stable or resolved conditions * Human immunodeficiency virus, well controlled. Continue current medications. * Hypothyroidism with adequate supplementation. Continue current levothyroxine dose. * Dehydration with dry mucous membranes and erythema to the posterior hard palate and the soft palate. Resolved after IV hydration 04/22/16. Encourage adequate PO hydration. * MEJIA and increased R tongue deviation 04/20/16: head CT w/out bleed. * Cough, productive, CXR c/w bronchitis, CBC with leukocytosis and left shift. Treated with azithromycin 5 days. Cough is resolved. * Transaminase elevation. Likely due to antiretrovirals, randy efavirenz and didanosine; not likely due to zidovudine. Mild, no change in medications indicated. Hep C neg. * DVT prophylaxis. He will be treated with enoxaparin 40 mg subcutaneous q. day until his mobility improves or sufficient time has passed since the stroke to have reduced risk of deep venous thrombosis. * No visual field cut per occupational therapy. His subjective experience of blurred vision is most likely related to the cerebrovascular accident. The other possibility would be retinal involvement due to the didanosine. He will be observed for improvement. Attended staffing, 15 min. D/W case mgmt, nursing, PT, OT, PLATE PUT IN WORKER. Home visit planned. Continue planned discharge 05/31/16. 05/16/16 13:54 Subjective: No complaints. Not in pain, No f/c, cough/dyspnea. Objective: Vital Signs Temp Pulse Resp BP Pulse Ox 36.3 C 74 16 110/69 94 05/16/16 06:29 05/16/16 06:29 05/16/16 06:29 05/16/16 06:29 05/16/16 06:29 Laboratory Results 04/26/16 05:35 04/19/16 17:57 05/15/16 05/16/16 05/17/16 05:59 05:59 05:59 Intake Total 1490 1436 590 Output Total 1750 1950 1000 Balance -260 -706 -927 - Time Spent With Patient Time Spent With Patient: Greater than 35 minutes floor time today, including more than 50% of time in coordination of care during staffing meeting, and counseling patient. Physical Exam - Physical Exam General Appearance: WD/WN, alert, no apparent distress Respiratory: No respiratory distress, No accessory muscle use Skin: normal color, warm/dry Neuro/Psych: alert, normal mood/affect, oriented x 3, aphasia (Expressive), motor weakness (RUE) ICD10 Worksheet Patient Problems: Problems Problem Status Onset Aphasia due to recent cerebrovascular accident (CVA) Acute Cerebrovascular accident (CVA) due to occlusion of left middle cerebral artery Acute Hemiplegia and hemiparesis following cerebral infarction affecting right dominant side Acute Neuropathic pain Acute Headache Acute
--- NOTE | 2016-05-16 18:55 | SOAPPROG ---
SOAP Progress Note Assessment/Plan: Assessment: Acupuncture services were requested post-stroke by Dr. Oviedo. This patient has no movement in his R arm and is aphasic. He seems cognitively aware and is able to answer yes and no questions. I asked him to point to the part of his body that was "the most frustrating". He pointed to his R hand. There is no movement or motor control. Treatment: L side scalp acupuncture: Speech I area Speech II area x 3 Du 20-23 Auricular: Bilateral BFA for SCREEN AND CYCLONE REPAIRER: Cingular Gyrate [place] 2 Rosas Men [place] Zero Left side: HT 9 Estrellita Well for acute stroke, reduce cerebral inflammation. PC 9 Estrellita Well for acute stroke, reduce cerebral inflammation. GASTON 11 Estrellita Well for acute stroke, reduce cerebral inflammation. LI [address] meridian, mirrors Speech I area/ST 8 (temporal). Ling Gu Relax the LB Da Stacy Relax the LB HT 8 Balance sleep and wake, relax the tongue. HT 5 Tx apashia HT 4, 7 Balance GB, relax the shoulders HT 3 He Se, Balance GB, KI HT 3-8 Balances GB and mirror Speech II area (parietal). GASTON 5 Resolve Phlegm, Balance BL meridian GASTON 9 Balance BL meridian, decrease tension in flexion and extension, base of skull/occiput ST 36 Increase Qi and blood GB 34 Empirical point to relax tendons GB 35-39 Decrease shoulder, head, and neck tension, balance GB Note: no points done on ankle or feet due to compression stockings. Patient had a visitor before the treatment had started. I asked him if he had had a lot of visitors and if he wanted them. "Yes" to the first question, "no" to the latter. Relayed this information to his nurse to discuss management of visitors with his partner. Plan: The best frequency to treat the symptoms of stroke is daily. The best window of time is three weeks to three months. I will discuss this with his providers and care givers. My recommendations is a minimum of two times per week with needles retained 45 minutes - 1 hour each time. 04/26/16 18:26 05/03/16 16:57 Assessment: Acupuncture services were requested post-stroke by Dr. Oviedo. This patient has no movement in his R arm and is aphasic. He seems cognitively aware and is able to answer yes and no questions. I asked him to point to the part of his body that was "the most frustrating". He pointed to his R hand. There is no movement or motor control. Today he was able to lift and straighten his R leg - straight leg raise, initiated from the hip. The patient had some apprehension about acupuncture as it is "new" and does not love the needles, but felt it helped and wants to continue. Treatment: L side scalp acupuncture: Speech I area Speech II area x 3 Speech III Du 22 Auricular: L BFA for SCREEN AND CYCLONE REPAIRER: Cingular Gyrate [place] 2 Rosas Men [place] Zero Left side: LI [address] meridian, mirrors Speech I area/ST 8 (temporal). SI 3 Relax the spine and reduce any spasms in paraspinals, balance BL meridian. SJ 3 Relax the neck, balance the GB meridian, improve blood flow in lateral neck. HT 8 Balance sleep and wake, relax the tongue. HT 5 Tx apashia HT 4, 7 Balance GB, relax the shoulders ST 36 Increase Qi and blood GB 34 Empirical point to relax tendons SP [address] meridian KI 10 Balance the BL meridian Note: no points done on ankle or feet due to compression stockings. Tyler were retained for forty minutes. Plan: Discussed a treatment plan with his partner, Roe. We will try to arrange acupuncture two times per week. 05/07/16 17:40 Patient is regaining strength and movement from his R hip. He has little movement in his R knee, R arm, R elbow, R forearm, and R hand. Through gesturing and yes/no questions the patient indicated he has less sensation below his R elbow and R hand than his upper arm - bicep, deltoid, and tricep. He continues to have difficulty pulling up words, but is able to speak in longer sentences when he offers information rather than asked a question. He seems to be able to comprehend what is being said or asked, but has difficulty finding the words. He did express apprehension about acupuncture (some level of needle phobia), but he would like to continue with the treatments. The treatment today has three main focuses: scalp acupuncture to improve his speech, neurological to reduce inflammation and swelling (by improving blood flow and circulation) that may contribute to any of the symptoms of the stroke, and "direct imaging" of the areas affected by the stroke: tongue, elbow, forearm , hand, and knee. Treatment: L side scalp acupuncture: Seech I area Speech II area x 2 Speech III Auricular: Bilateral BFA for SCREEN AND CYCLONE REPAIRER: Cingular Gyrate [place] 2 Rosas Men [place] Zero Left side: LI [address] meridian, mirrors Speech I area/ST 8 (temporal). HT 8 Balance sleep and wake, relax the tongue. HT 5 Tx apashia HT 4, 7 Balance GB, relax the shoulders HT 3 x 3 lyric He Se, Balance GB, KI, image elbow and knee. HT 3-8 Balances GB and mirror Speech II area (parietal). PC 3 x 3 Balance the LR meridian. Reduce LR Wind. Image the knee and elbow. GASTON 5 Resolve Phlegm, Balance BL meridian GASTON 9 Balance BL meridian, decrease tension in flexion and extension, base of skull/occiput GASTON 10 Relax the throat, Balance the BL meridian ST [address] 35 image the elbow and knee GB 34 Empirical point to relax tendons GB 35-39 Decrease shoulder, head, and neck tension, balance GB Du Bi image the elbow and knee Note: no points done on ankle or feet due to compression stockings. Treatment chosen using the principles of Dr Carrera's Balance Method. Thirty-eight needles inserted and retained approximately forty minutes. 05/10/16 20:12 Patient is able to answer some questions with more than "yes or no". He still seems to have little to no sensation or movement in his R arm and hand. His partner relayed to me improved speech following the previous acupuncture treatment. Treatment: L side scalp acupuncture: Speech I area Speech II area x 2 Speech III Motor line Sensory line Auricular: Bilateral BFA for SCREEN AND CYCLONE REPAIRER: Cingular Gyrate [place] 2 Rosas Men [place] Zero Left side: LI [address] meridian, mirrors Speech I area/ST 8 (temporal). SI 3 SI 4 SJ 4 HT 5 Tx apashia HT 3 x 3 lyric He Se, Balance GB, KI, image elbow and knee. HT 3-7 Balances GB and mirror Speech II area (parietal). GASTON 5 Resolve Phlegm, Balance BL meridian ST 36 Increase Qi and blood GB 34 Empirical point to relax tendons GB 35-41 Decrease shoulder, head, and neck tension, balance GB. Image parietal area. BL 65 (deep insertion), relax the spine, improve flexion and extension. [place] Rosa point. Improve ROM on BL meridian/paraspinal muscles. GB 40, 41 Relax the occiput, improve bloodflow. KI 3 Balance BL meridian. Improve flexion, extension, and side-bending in cervical spine. LR 3 Move the blood. Improve circulation. Treatment chosen using the principles of Dr Carrera's Balance Method. 05/13/16 17:21 With the direction of Miles's physical therapist, Oleksandr, we will do local acupuncture points on the affected (R) side to encourage dorsiflexion of his foot. Miles continues to improve his vocabulary and was able to verbalize Oleksandr' s name today. He also transferred from his wheelchair to his bed on his own. Treatment: L side scalp acupuncture: Speech I area Speech II area x 3 Speech II Motor Line for Scalp Acupuncture Sensory Line for Scalp Acupuncture Auricular: Bilateral BFA for SCREEN AND CYCLONE REPAIRER: Cingular Gyrate [place] 2 Ros[place] Men [place] Zero Left side: HT 8 Balance sleep and wake, relax the tongue. HT 5 Tx apashia HT 4, 7 Balance GB, relax the shoulders HT 3 He Se, Balance GB, KI HT 3-8 Balances GB and mirror Speech II area (parietal). GASTON 5 Resolve Phlegm, Balance BL meridian GASTON 9 Balance BL meridian, decrease tension in flexion and extension, base of skull/occiput GASTON 10 Estrellita [place] point, [place] point, relax the throat. LR 3, 7, 8 KI 2, 3, 7 SP 3, 4, 6, 9 x 2 Right Side: LI [address] meridian, mirrors Speech I area/ST 8 (temporal). Ling Gu Relax the LB Da Stacy Relax the LB SI 3 (deep) master point of spine, improve flexion and extension, balance the BL meridian LR 3 x 2 a SP 3, 4 Lyric on bottom of foot [address] 36 Increase Qi and blood GB 34 Empirical point to relax tendons GB 35-39 Decrease shoulder, head, and neck tension, balance GB Local muscles stimulated and fasciculation achieved on anterior tibialis and peroneals (ST 36 -37 and GB 34-35). VMO was stimulated without result. Scalp acupuncture needles retained for 1 h 20 minutes. Tyler retained on body for 40 minutes. 05/16/16 18:44 Feedback from Miles's partner indicates improved movement in R anterior tibialis and peroneal muscles. Still no movement in R arm or hand. Speech continues to improve with a larger vocabulary and it seems easier for him to pull up words when asked a question. Treatment: L side scalp acupuncture: Speech I area Speech II area x 3 Speech II Motor Line for Scalp Acupuncture Sensory Line for Scalp Acupuncture Auricular: Bilateral BFA for SCREEN AND CYCLONE REPAIRER: Cingular Gyrate [place] 2 Rosas Men [place] Zero Left side: HT 7 Balance GB, relax the shoulders HT 3 He Se, Balance GB, KI LR 3, 7, 8 KI 3, 10 SP 5, 9 x 2 Right Side: LI [address] meridian, mirrors Speech I area/ST 8 (temporal). Ling Gu Relax the LB Da Stacy Relax the LB SI 3 (deep) master point of spine, improve flexion and extension, balance the BL meridian LR 3 x 2 a SP 3, 4 [place] sandra - used as local points on hand (versus for its benefit on the hip) ST 36 Increase Qi and blood GB 34 Empirical point to relax tendons GB 35-39 Decrease shoulder, head, and neck tension, balance GB Local muscles stimulated with electric stimulation anterior tibialis and peroneals (ST 36 -41, then switched ST 36 - LR 3; and GB 34-39, then switched to GB 34 to BL 65). [place] sandra to SI 3; LI 4 to LI 11. Electric stimulation on milliamps turned up as high as patient could tolerate. He has some sensation along the anterior tibialis and peroneals, and no sensation in his arm, however he was aware of his hand spasming with the high stimulation, I am unclear if he felt it, or just saw it. Scalp acupuncture needles retained for 1 h 20 minutes. Tyler retained on body for 40 minutes. Objective: Vital Signs Temp Pulse Resp BP Pulse Ox 36.3 C 74 16 110/69 94 05/16/16 06:29 05/16/16 06:29 05/16/16 06:29 05/16/16 06:29 05/16/16 06:29 Laboratory Results 04/26/16 05:35 04/19/16 17:57 05/15/16 05/16/16 05/17/16 05:59 05:59 05:59 Intake Total 1490 1436 590 Output Total 1750 1950 1000 Balance -260 -514 -410 ICD10 Worksheet Patient Problems: Problems Problem Status Onset Aphasia due to recent cerebrovascular accident (CVA) Acute Cerebrovascular accident (CVA) due to occlusion of left middle cerebral artery Acute Hemiplegia and hemiparesis following cerebral infarction affecting right dominant side Acute Neuropathic pain Acute Headache Acute
[2016-05-16] MEDS: ATORVASTATIN CALCIUM 40 MG TAB PO SCH (20:29)
[2016-05-16] MEDS: EFAVIRENZ 600 MG TAB PO SCH (20:31)
[2016-05-17] MEDS: LEVOTHYROXINE 125 MCG TAB PO SCH (05:48)
[2016-05-17] MEDS: DIDANOSINE 400 MG PO SCH (05:48)
[2016-05-17] MEDS: ENOXAPARIN 40 MG/0.4 ML SYR SC SCH (08:02)
[2016-05-17] MEDS: FLUoxetine 20 MG CAP PO SCH (08:02)
[2016-05-17] MEDS: POLYETHYLENE GLYCOL 3350 17 GM PKT PO SCH (08:02)
[2016-05-17] MEDS: ASPIRIN 325 MG TAB PO SCH (08:02)
[2016-05-17] MEDS: ZIDOVUDINE 300 MG PO SCH ×2 (08:03→20:10)
[2016-05-17 09:00] LABS: HEMATOCRIT 40.9 % (40.0-51.0); HEMOGLOBIN 14.8 g/dL (13.7-17.5); MEAN CELL HEMOGLOBIN 38.8 pg (27.9-34.1); MEAN CELL HEMOGLOBIN CONCENTR. 36.2 g/dL (32.4-36.7); MEAN CELL VOLUME 107.3 fL (81.5-99.8); RED BLOOD CELL COUNT 3.81 10^6/uL (4.40-6.38); RED CELL DISTRIBUTION WIDTH 13.4 % (11.5-15.2)
--- NOTE | 2016-05-17 10:04 | SOAPPROG ---
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 Initial FIM 30 on 04/20/16; improved to 53 on 04/25/16; to 67 as of ; to 76 as of 05/09/16; 83 as of 05/16/16. Walked 110' quad cane with min A of 1. Climbed and descended 9 stairs one rail. PT notes increased flexor tone RLE but not interfering and no indication for muscle relaxant. T'cj CGA. Accomplished car t'cj with . CGA LB dressing for occ LOB. Reduced LLE proprioception and motor planning deficit. Continue physical therapy and occupational therapy to optimize mobility and activities of daily living. Escitalopram started in hospital, changed on 04/18/16 to fluoxetine 20 mg p.o. q. day in keeping with the protocol of the FLAME trial, which showed improved recovery of motor function in hemiplegic strokes. * Dysphagia and expressive greater than receptive aphasia. Advanced to regular texture diet & thin liquids. Expressive aphasia is improving, able to speak brief sentences; receptive is much improved. Continue Speech and Language Pathology. Able to swallow pills, including efavirenz capsule. * Urinary incontinence. Much improved, no longer needing condom catheter at night as of 05/09/16. * Unclear etiology of the stroke. He has a environmental monitoring specialist. He has followup planned with spinning lathe operator hydraulic, Dr. Barnes 05/22/16 to evaluate for any occult atrial fibrillation. He is being treated with aspirin 325 mg p.o. q. day, as well as atorvastatin as stroke preventive. Question of E-stim affecting heart monitor d /w Dr. Barnes: no affect, proceed with E-stim. * Anemia, macrocytic. Improved 04/26/16 with normal B12, folate, retics. Still markedly macrocytic, due to HIV meds? * Accidental needle stick: labs reviewed from 05/16/16. He is Hep C negative, and HIV viral load is undetectable. Chronic stable or resolved conditions * Human immunodeficiency virus, well controlled. Continue current medications. * Hypothyroidism with adequate supplementation. Continue current levothyroxine dose. * Dehydration with dry mucous membranes and erythema to the posterior hard palate and the soft palate. Resolved after IV hydration 04/22/16. Encourage adequate PO hydration. * MEJIA and increased R tongue deviation 04/20/16: head CT w/out bleed. * Cough, productive, CXR c/w bronchitis, CBC with leukocytosis and left shift. Treated with azithromycin 5 days. Cough is resolved. * Transaminase elevation. Likely due to antiretrovirals, randy efavirenz and didanosine; not likely due to zidovudine. Mild, no change in medications indicated. Hep C neg. * DVT prophylaxis. He will be treated with enoxaparin 40 mg subcutaneous q. day until his mobility improves or sufficient time has passed since the stroke to have reduced risk of deep venous thrombosis. * No visual field cut per occupational therapy. His subjective experience of blurred vision is most likely related to the cerebrovascular accident. The other possibility would be retinal involvement due to the didanosine. He will be observed for improvement. Home visit planned. Continue planned discharge 05/31/16. 05/16/16 13:54 05/17/16 10:02 Subjective: No complaints. Shows examiner hand chimes tuned to D and G but can't describe why he has them or what he does with them, other than indicating a group of people. Objective: Vital Signs Temp Pulse Resp BP Pulse Ox 36.7 C 76 16 121/75 H 93 05/17/16 06:05 05/17/16 06:05 05/17/16 06:05 05/17/16 06:05 05/17/16 06:05 Laboratory Results 05/17/16 06:10 04/19/16 17:57 05/16/16 05/17/16 05/18/16 05:59 05:59 05:59 Intake Total 1436 1076 460 Output Total 1950 1950 350 Balance -514 874 110 Physical Exam - Physical Exam General Appearance: WD/WN, alert, no apparent distress Respiratory: No respiratory distress, No accessory muscle use Skin: normal color, warm/dry Neuro/Psych: alert, normal mood/affect, aphasia (Expressive), motor weakness ( RUE flaccid paralysis) ICD10 Worksheet Patient Problems: Problems Problem Status Onset Aphasia due to recent cerebrovascular accident (CVA) Acute Cerebrovascular accident (CVA) due to occlusion of left middle cerebral artery Acute Hemiplegia and hemiparesis following cerebral infarction affecting right dominant side Acute Neuropathic pain Acute Headache Acute
[2016-05-17] MEDS: ATORVASTATIN CALCIUM 40 MG TAB PO SCH (20:10)
[2016-05-17] MEDS: EFAVIRENZ 600 MG TAB PO SCH (20:11)
[2016-05-18] MEDS: DIDANOSINE 400 MG PO SCH (05:37)
[2016-05-18] MEDS: LEVOTHYROXINE 150 MCG TAB PO SCH (05:38)
[2016-05-18] MEDS: LEVOTHYROXINE 25 MCG TAB PO SCH (05:38)
[2016-05-18] MEDS: POLYETHYLENE GLYCOL 3350 17 GM PKT PO SCH (08:38)
[2016-05-18] MEDS: ASPIRIN 325 MG TAB PO SCH (08:39)
[2016-05-18] MEDS: FLUoxetine 20 MG CAP PO SCH (08:39)
[2016-05-18] MEDS: ZIDOVUDINE 300 MG PO SCH ×2 (08:40→20:21)
[2016-05-18] MEDS: ENOXAPARIN 40 MG/0.4 ML SYR SC SCH (09:38)
--- NOTE | 2016-05-18 15:34 | SOAPPROG ---
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 Initial FIM 30 on 04/20/16; improved to 53 on 04/25/16; to 67 as of ; to 76 as of 05/09/16; 83 as of 05/16/16. Walked 110' quad cane with min A of 1. Climbed and descended 9 stairs one rail. PT notes increased flexor tone RLE but not interfering and no indication for muscle relaxant. T'cj CGA. Accomplished car t'cj with . CGA LB dressing for occ LOB. Reduced LLE proprioception and motor planning deficit. Continue physical therapy and occupational therapy to optimize mobility and activities of daily living. Escitalopram started in hospital, changed on 04/18/16 to fluoxetine 20 mg p.o. q. day in keeping with the protocol of the FLAME trial, which showed improved recovery of motor function in hemiplegic strokes. * Dysphagia and expressive greater than receptive aphasia. Advanced to regular texture diet & thin liquids. Expressive aphasia is improving, able to speak brief sentences; receptive is much improved. Continue Speech and Language Pathology. Able to swallow pills, including efavirenz capsule. * Urinary incontinence. Much improved, no longer needing condom catheter at night as of 05/09/16. * Unclear etiology of the stroke. He has a shelter monitor. He has followup planned with mica paster, Dr. Barnes 05/22/16 to evaluate for any occult atrial fibrillation. He is being treated with aspirin 325 mg p.o. q. day, as well as atorvastatin as stroke preventive. Question of E-stim affecting heart monitor d /w Dr. Barnes: no affect, proceed with E-stim. * Anemia, macrocytic. Improved 04/26/16 with normal B12, folate, retics. Still markedly macrocytic, due to HIV meds? * Accidental needle stick: labs reviewed from 05/16/16. He is Hep C negative, and HIV viral load is undetectable. Chronic stable or resolved conditions * Human immunodeficiency virus, well controlled. Continue current medications. * Hypothyroidism with adequate supplementation. Continue current levothyroxine dose. * Dehydration with dry mucous membranes and erythema to the posterior hard palate and the soft palate. Resolved after IV hydration 04/22/16. Encourage adequate PO hydration. * MEJIA and increased R tongue deviation 04/20/16: head CT w/out bleed. * Cough, productive, CXR c/w bronchitis, CBC with leukocytosis and left shift. Treated with azithromycin 5 days. Cough is resolved. * Transaminase elevation. Likely due to antiretrovirals, randy efavirenz and didanosine; not likely due to zidovudine. Mild, no change in medications indicated. Hep C neg. * DVT prophylaxis. He will be treated with enoxaparin 40 mg subcutaneous q. day until his mobility improves or sufficient time has passed since the stroke to have reduced risk of deep venous thrombosis. * No visual field cut per occupational therapy. His subjective experience of blurred vision is most likely related to the cerebrovascular accident. The other possibility would be retinal involvement due to the didanosine. He will be observed for improvement. Home visit planned. Continue planned discharge 05/31/16. 05/18/16 15:35 Subjective: No complaints. Sleeping well, not in pain, no f/c. cough/dyspnea. wonders if fluoxetine is making him "loopy;" he seems to be more happy all the time than usual. Objective: Vital Signs Temp Pulse Resp BP Pulse Ox 36.6 C 71 16 118/71 95 05/18/16 06:18 05/18/16 06:18 05/18/16 06:18 05/18/16 06:18 05/18/16 06:18 Laboratory Results 05/17/16 06:10 04/19/16 17:57 05/17/16 05/18/16 05/19/16 05:59 05:59 05:59 Intake Total 1076 1870 900 Output Total 1950 1400 1100 Balance -874 470 -200 Physical Exam - Physical Exam General Appearance: WD/WN, alert, no apparent distress Respiratory: normal breath sounds, No crackles, No rhonchi, No wheezing Cardiac/Chest: regular rate, rhythm, No edema Skin: normal color, warm/dry Neuro/Psych: alert, normal mood/affect, aphasia (Expressive), motor weakness ( RUE) ICD10 Worksheet Patient Problems: Problems Problem Status Onset Aphasia due to recent cerebrovascular accident (CVA) Acute Cerebrovascular accident (CVA) due to occlusion of left middle cerebral artery Acute Hemiplegia and hemiparesis following cerebral infarction affecting right dominant side Acute Neuropathic pain Acute Headache Acute
[2016-05-18] MEDS: EFAVIRENZ 600 MG TAB PO SCH (20:20)
[2016-05-18] MEDS: ATORVASTATIN CALCIUM 40 MG TAB PO SCH (20:20)
[2016-05-19] MEDS: DIDANOSINE 400 MG PO SCH (05:46)
[2016-05-19] MEDS: LEVOTHYROXINE 125 MCG TAB PO SCH (05:50)
[2016-05-19] MEDS: ZIDOVUDINE 300 MG PO SCH ×2 (10:16→20:06)
[2016-05-19] MEDS: ASPIRIN 325 MG TAB PO SCH (10:16)
[2016-05-19] MEDS: FLUoxetine 20 MG CAP PO SCH (10:16)
[2016-05-19] MEDS: POLYETHYLENE GLYCOL 3350 17 GM PKT PO SCH (10:16)
[2016-05-19] MEDS: ENOXAPARIN 40 MG/0.4 ML SYR SC SCH (10:16)
--- NOTE | 2016-05-19 12:37 | SOAPPROG ---
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 Initial FIM 30 on 04/20/16; improved to 53 on 04/25/16; to 67 as of ; to 76 as of 05/09/16; 83 as of 05/16/16. Walked 110' quad cane with min A of 1. Climbed and descended 9 stairs one rail. PT notes increased flexor tone RLE but not interfering and no indication for muscle relaxant. T'cj CGA. Accomplished car t'cj with . CGA LB dressing for occ LOB. Reduced LLE proprioception and motor planning deficit. Continue physical therapy and occupational therapy to optimize mobility and activities of daily living. * CVA: Escitalopram started in hospital, changed on 04/18/16 to fluoxetine 20 mg p.o. q. day in keeping with the protocol of the FLAME trial, which showed improved recovery of motor function in hemiplegic strokes. * Dysphagia and . Advanced to regular texture diet & thin liquids. Continue Speech Pathology. Able to swallow pills, including efavirenz capsule. * Aphasia: expressive greater than receptive, improving, cont ST * Urinary incontinence. Much improved, no longer needing condom catheter at night as of 05/09/16. * Unclear etiology of the stroke. He has a cardiac cath technologist. He has followup planned with horse stud manager, Dr. Barnes 05/22/16 to evaluate for any occult atrial fibrillation. He is being treated with aspirin 325 mg p.o. q. day, as well as atorvastatin as stroke preventive. Question of E-stim affecting heart monitor d /w Dr. Barnes: no affect, proceed with E-stim. * Anemia, macrocytic. Improved 04/26/16 with normal B12, folate, retics. Still markedly macrocytic, due to HIV meds? * Accidental needle stick: labs reviewed from 05/16/16. He is Hep C negative, and HIV viral load is undetectable. Chronic stable or resolved conditions * Human immunodeficiency virus, well controlled. Continue current medications. * Hypothyroidism with adequate supplementation. Continue current levothyroxine dose. * MEJIA and increased R tongue deviation 04/20/16: head CT w/out bleed. * Cough, productive, CXR c/w bronchitis, CBC with leukocytosis and left shift. Treated with azithromycin 5 days. Cough is resolved. * Transaminase elevation. Likely due to antiretrovirals, randy efavirenz and didanosine; not likely due to zidovudine. Mild, no change in medications indicated. Hep C neg. * DVT prophylaxis. He will be treated with enoxaparin 40 mg subcutaneous q. day until his mobility improves or sufficient time has passed since the stroke to have reduced risk of deep venous thrombosis. * No visual field cut per occupational therapy. His subjective experience of blurred vision is most likely related to the cerebrovascular accident. The other possibility would be retinal involvement due to the didanosine. He will be observed for improvement. Home visit planned. Continue planned discharge 05/31/16. Plan: Cont Dr Harris rehab treatment plan 05/19/16 12:34 Subjective: No new problems or C/O's In good spirits No F/C/CP/SOB//N/V/D/C Objective: Vital Signs Temp Pulse Resp BP Pulse Ox 36.9 C 75 16 111/81 H 95 05/19/16 08:00 05/19/16 08:00 05/19/16 08:00 05/19/16 08:00 05/19/16 08:00 Laboratory Results 05/17/16 06:10 04/19/16 17:57 05/18/16 05/19/16 05/20/16 05:59 05:59 05:59 Intake Total 1870 1590 300 Output Total 1400 1900 250 Balance 470 -310 50 Physical Exam - Physical Exam General Appearance: alert, no apparent distress (aware of expressive challenges) Neck: supple Respiratory: lungs clear Cardiac/Chest: regular rate, rhythm Skin: normal color, warm/dry, No rash Extremities: No pedal edema, No calf tenderness Neuro/Psych: alert, abnormal gait, aphasia, motor weakness, sensory deficit, cognition abnormalities, other (no acute changes) ICD10 Worksheet Patient Problems: Problems Problem Status Onset Aphasia due to recent cerebrovascular accident (CVA) Acute Cerebrovascular accident (CVA) due to occlusion of left middle cerebral artery Acute Hemiplegia and hemiparesis following cerebral infarction affecting right dominant side Acute Neuropathic pain Acute Headache Acute
[2016-05-19] MEDS: EFAVIRENZ 600 MG TAB PO SCH (20:06)
[2016-05-19] MEDS: ATORVASTATIN CALCIUM 40 MG TAB PO SCH (20:06)
[2016-05-20] MEDS: DIDANOSINE 400 MG PO SCH (06:02)
[2016-05-20] MEDS: LEVOTHYROXINE 150 MCG TAB PO SCH (06:02)
[2016-05-20] MEDS: LEVOTHYROXINE 25 MCG TAB PO SCH (06:02)
[2016-05-20] MEDS: ENOXAPARIN 40 MG/0.4 ML SYR SC SCH (08:17)
[2016-05-20] MEDS: ASPIRIN 325 MG TAB PO SCH (08:17)
[2016-05-20] MEDS: POLYETHYLENE GLYCOL 3350 17 GM PKT PO SCH (08:17)
[2016-05-20] MEDS: FLUoxetine 20 MG CAP PO SCH (08:17)
[2016-05-20] MEDS: ZIDOVUDINE 300 MG PO SCH ×2 (08:19→21:01)
--- NOTE | 2016-05-20 13:26 | SOAPPROG ---
SOAP Progress Note Assessment/Plan: Assessment/Plan: 45 yo M s/p large MCA CVA on 04/10/16 of unclear etiology: * Right hemiplegia following left MCA CVA. R spastic hemiparesis. PT notes increased flexor tone RLE but not interfering and no indication for muscle relaxant. T'cj CGA. Car t'cj with . CGA LB dressing for occ LOB. Reduced LLE proprioception and motor planning deficit. Continue PT OT; optimize mobility and activities of daily living. * CVA: Cont fluoxetine 20 mg p.o. q. day in keeping with the protocol of the FLAME trial, which showed improved recovery of motor function in hemiplegic strokes. * Dysphagia and . Advanced to regular texture diet & thin liquids. Continue Speech Pathology. Able to swallow pills, including efavirenz capsule. * Aphasia: expressive greater than receptive, improving, cont ST * Urinary incontinence. Much improved, no longer needing condom catheter at night as of 05/09/16. * Unclear etiology of the stroke. He has a ekg monitor tech. He has followup planned with wildlife removal specialist, Dr. Barnes 05/22/16 to evaluate for any occult atrial fibrillation. He is being treated with aspirin 325 mg p.o. q. day, as well as atorvastatin as stroke preventive. Question of E-stim affecting heart monitor d /w Dr. Barnes: no affect, proceed with E-stim. * Anemia, macrocytic. Improved 04/26/16 with normal B12, folate, retics. Still markedly macrocytic, due to HIV meds? * Accidental needle stick: labs reviewed from 05/16/16. He is Hep C negative, and HIV viral load is undetectable. Chronic stable or resolved conditions * Human immunodeficiency virus, well controlled. Continue current medications. * Hypothyroidism with adequate supplementation. Continue current levothyroxine dose. * MEJIA and increased R tongue deviation 04/20/16: head CT w/out bleed. * Cough, productive, CXR c/w bronchitis, CBC with leukocytosis and left shift. Treated with azithromycin 5 days. Cough is resolved. * Transaminase elevation. Likely due to antiretrovirals, randy efavirenz and didanosine; not likely due to zidovudine. Mild, no change in medications indicated. Hep C neg. * DVT prophylaxis. He will be treated with enoxaparin 40 mg subcutaneous q. day until his mobility improves or sufficient time has passed since the stroke to have reduced risk of deep venous thrombosis. * No visual field cut per occupational therapy. His subjective experience of blurred vision is most likely related to the cerebrovascular accident. The other possibility would be retinal involvement due to the didanosine. He will be observed for improvement. Home visit planned. Continue planned discharge 05/31/16. Plan: Cont Dr Harris rehab treatment plan 05/20/16 13:22 Subjective: No new problems or C/O's Outting last pm for dinner across the street went well No F/C/CP/SOB/N/V/D/C Objective: Vital Signs Temp Pulse Resp BP Pulse Ox 36.8 C 71 14 114/76 95 05/20/16 08:02 05/20/16 08:02 05/20/16 08:02 05/20/16 08:02 05/20/16 08:02 Laboratory Results 05/17/16 06:10 04/19/16 17:57 05/19/16 05/20/16 05/21/16 05:59 05:59 05:59 Intake Total 1590 840 356 Output Total 1900 1300 Balance -310 -460 356 Physical Exam - Physical Exam General Appearance: alert, no apparent distress Neck: supple Respiratory: lungs clear Cardiac/Chest: regular rate, rhythm Skin: normal color, warm/dry, No rash Extremities: No pedal edema, No calf tenderness Neuro/Psych: alert, normal mood/affect, abnormal gait, aphasia, facial droop, motor weakness, sensory deficit, cognition abnormalities, other (no acute changes) ICD10 Worksheet Patient Problems: Problems Problem Status Onset Aphasia due to recent cerebrovascular accident (CVA) Acute Cerebrovascular accident (CVA) due to occlusion of left middle cerebral artery Acute Hemiplegia and hemiparesis following cerebral infarction affecting right dominant side Acute Neuropathic pain Acute Headache Acute
[2016-05-20] MEDS: ATORVASTATIN CALCIUM 40 MG TAB PO SCH (21:01)
[2016-05-20] MEDS: EFAVIRENZ 600 MG TAB PO SCH (21:01)
[2016-05-21] MEDS: DIDANOSINE 400 MG PO SCH (05:31)
[2016-05-21] MEDS: LEVOTHYROXINE 125 MCG TAB PO SCH (05:33)
[2016-05-21] MEDS: ENOXAPARIN 40 MG/0.4 ML SYR SC SCH (10:06)
[2016-05-21] MEDS: ASPIRIN 325 MG TAB PO SCH (10:06)
[2016-05-21] MEDS: FLUoxetine 20 MG CAP PO SCH (10:06)
[2016-05-21] MEDS: ZIDOVUDINE 300 MG PO SCH ×2 (10:11→20:01)
[2016-05-21] MEDS: POLYETHYLENE GLYCOL 3350 17 GM PKT PO SCH (10:12)
--- NOTE | 2016-05-21 12:18 | SOAPPROG ---
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 Initial FIM 30 on 04/20/16; improved to 53 on 04/25/16; to 67 as of ; to 76 as of 05/09/16; 83 as of 05/16/16. Walked 110' quad cane with min A of 1. Climbed and descended 9 stairs one rail. PT notes increased flexor tone RLE but not interfering and no indication for muscle relaxant. T'cj CGA. Accomplished car t'cj with . CGA LB dressing for occ LOB. Reduced LLE proprioception and motor planning deficit. Continue physical therapy and occupational therapy to optimize mobility and activities of daily living. Escitalopram started in hospital, changed on 04/18/16 to fluoxetine 20 mg p.o. q. day in keeping with the protocol of the FLAME trial, which showed improved recovery of motor function in hemiplegic strokes. * Dysphagia and expressive greater than receptive aphasia. Advanced to regular texture diet & thin liquids. Expressive aphasia is improving, able to speak brief sentences; receptive is much improved. Continue Speech and Language Pathology. Able to swallow pills, including efavirenz capsule. * Urinary incontinence. Much improved, no longer needing condom catheter at night as of 05/09/16. * Unclear etiology of the stroke. He has a er manager. He has followup planned with summer babysitter, Dr. Barnes 05/22/16 to evaluate for any occult atrial fibrillation. He is being treated with aspirin 325 mg p.o. q. day, as well as atorvastatin as stroke preventive. Question of E-stim affecting heart monitor d /w Dr. Barnes: no affect, proceed with E-stim. * Anemia, macrocytic. Improved 04/26/16 with normal B12, folate, retics. Still markedly macrocytic, due to HIV meds? * Accidental needle stick: labs reviewed from 05/16/16. He is Hep C negative, and HIV viral load is undetectable. Chronic stable or resolved conditions * Human immunodeficiency virus, well controlled. Continue current medications. * Hypothyroidism with adequate supplementation. Continue current levothyroxine dose. * Dehydration with dry mucous membranes and erythema to the posterior hard palate and the soft palate. Resolved after IV hydration 04/22/16. Encourage adequate PO hydration. * MEJIA and increased R tongue deviation 04/20/16: head CT w/out bleed. * Cough, productive, CXR c/w bronchitis, CBC with leukocytosis and left shift. Treated with azithromycin 5 days. Cough is resolved. * Transaminase elevation. Likely due to antiretrovirals, randy efavirenz and didanosine; not likely due to zidovudine. Mild, no change in medications indicated. Hep C neg. * DVT prophylaxis. Now 6 weeks s/p CVA as of 05/21/16. Will D/C enoxaparin. * No visual field cut per occupational therapy. His subjective experience of blurred vision is most likely related to the cerebrovascular accident. The other possibility would be retinal involvement due to the didanosine. He will be observed for improvement. Home visit planned. Continue planned discharge 05/31/16. 05/21/16 12:16 Subjective: No complaints. Denies f/c, cough/dyspnea. Notes not return of function RUE, Objective: Vital Signs Temp Pulse Resp BP Pulse Ox 36.7 C 81 16 117/78 95 05/21/16 05:36 05/21/16 05:36 05/21/16 05:36 05/21/16 05:36 05/21/16 05:36 Laboratory Results 05/17/16 06:10 04/19/16 17:57 05/20/16 05/21/16 05/22/16 05:59 05:59 05:59 Intake Total 840 806 Output Total 1300 1650 Balance -460 -844 Physical Exam - Physical Exam General Appearance: WD/WN, alert, no apparent distress Respiratory: normal breath sounds, No crackles, No rhonchi, No wheezing Cardiac/Chest: regular rate, rhythm, No edema Skin: normal color, warm/dry Neuro/Psych: alert, normal mood/affect, motor weakness (RUE. Observed in OT with E-stim and movement of hand/finger flexors and extensors.) ICD10 Worksheet Patient Problems: Problems Problem Status Onset Aphasia due to recent cerebrovascular accident (CVA) Acute Cerebrovascular accident (CVA) due to occlusion of left middle cerebral artery Acute Hemiplegia and hemiparesis following cerebral infarction affecting right dominant side Acute Neuropathic pain Acute Headache Acute
--- NOTE | 2016-05-21 18:05 | SOAPPROG ---
SOAP Progress Note Assessment/Plan: Assessment: Acupuncture services were requested post-stroke by Dr. Oviedo. This patient has no movement in his R arm and is aphasic. He seems cognitively aware and is able to answer yes and no questions. I asked him to point to the part of his body that was "the most frustrating". He pointed to his R hand. There is no movement or motor control. Treatment: L side scalp acupuncture: Speech I area Speech II area x 3 Du 20-23 Auricular: Bilateral BFA for TISSUE RECOVERY TECHNICIAN: Cingular Gyrate [place] 2 Rosas Men [place] Zero Left side: HT 9 Estrellita Well for acute stroke, reduce cerebral inflammation. PC 9 Estrellita Well for acute stroke, reduce cerebral inflammation. GASTON 11 Estrellita Well for acute stroke, reduce cerebral inflammation. LI [address] meridian, mirrors Speech I area/ST 8 (temporal). Ling Gu Relax the LB Da Stacy Relax the LB HT 8 Balance sleep and wake, relax the tongue. HT 5 Tx apashia HT 4, 7 Balance GB, relax the shoulders HT 3 He Se, Balance GB, KI HT 3-8 Balances GB and mirror Speech II area (parietal). GASTON 5 Resolve Phlegm, Balance BL meridian GASTON 9 Balance BL meridian, decrease tension in flexion and extension, base of skull/occiput ST 36 Increase Qi and blood GB 34 Empirical point to relax tendons GB 35-39 Decrease shoulder, head, and neck tension, balance GB Note: no points done on ankle or feet due to compression stockings. Patient had a visitor before the treatment had started. I asked him if he had had a lot of visitors and if he wanted them. "Yes" to the first question, "no" to the latter. Relayed this information to his nurse to discuss management of visitors with his partner. Plan: The best frequency to treat the symptoms of stroke is daily. The best window of time is three weeks to three months. I will discuss this with his providers and care givers. My recommendations is a minimum of two times per week with needles retained 45 minutes - 1 hour each time. 04/26/16 18:26 05/03/16 16:57 Assessment: Acupuncture services were requested post-stroke by Dr. Oviedo. This patient has no movement in his R arm and is aphasic. He seems cognitively aware and is able to answer yes and no questions. I asked him to point to the part of his body that was "the most frustrating". He pointed to his R hand. There is no movement or motor control. Today he was able to lift and straighten his R leg - straight leg raise, initiated from the hip. The patient had some apprehension about acupuncture as it is "new" and does not love the needles, but felt it helped and wants to continue. Treatment: L side scalp acupuncture: Speech I area Speech II area x 3 Speech III Du 22 Auricular: L BFA for TISSUE RECOVERY TECHNICIAN: Cingular Gyrate [place] 2 Rosas Men [place] Zero Left side: LI [address] meridian, mirrors Speech I area/ST 8 (temporal). SI 3 Relax the spine and reduce any spasms in paraspinals, balance BL meridian. SJ 3 Relax the neck, balance the GB meridian, improve blood flow in lateral neck. HT 8 Balance sleep and wake, relax the tongue. HT 5 Tx apashia HT 4, 7 Balance GB, relax the shoulders ST 36 Increase Qi and blood GB 34 Empirical point to relax tendons SP [address] meridian KI 10 Balance the BL meridian Note: no points done on ankle or feet due to compression stockings. [place] were retained for forty minutes. Plan: Discussed a treatment plan with his partner, Roe. We will try to arrange acupuncture two times per week. 05/07/16 17:40 Patient is regaining strength and movement from his R hip. He has little movement in his R knee, R arm, R elbow, R forearm, and R hand. Through gesturing and yes/no questions the patient indicated he has less sensation below his R elbow and R hand than his upper arm - bicep, deltoid, and tricep. He continues to have difficulty pulling up words, but is able to speak in longer sentences when he offers information rather than asked a question. He seems to be able to comprehend what is being said or asked, but has difficulty finding the words. He did express apprehension about acupuncture (some level of needle phobia), but he would like to continue with the treatments. The treatment today has three main focuses: scalp acupuncture to improve his speech, neurological to reduce inflammation and swelling (by improving blood flow and circulation) that may contribute to any of the symptoms of the stroke, and "direct imaging" of the areas affected by the stroke: tongue, elbow, forearm , hand, and knee. Treatment: L side scalp acupuncture: Seech I area Speech II area x 2 Speech III Auricular: Bilateral BFA for TISSUE RECOVERY TECHNICIAN: Cingular Gyrate [place] 2 Rosas Men [place] Zero Left side: LI [address] meridian, mirrors Speech I area/ST 8 (temporal). HT 8 Balance sleep and wake, relax the tongue. HT 5 Tx apashia HT 4, 7 Balance GB, relax the shoulders HT 3 x 3 lyric He Se, Balance GB, KI, image elbow and knee. HT 3-8 Balances GB and mirror Speech II area (parietal). PC 3 x 3 Balance the LR meridian. Reduce LR Wind. Image the knee and elbow. GASTON 5 Resolve Phlegm, Balance BL meridian GASTON 9 Balance BL meridian, decrease tension in flexion and extension, base of skull/occiput GASTON 10 Relax the throat, Balance the BL meridian ST [address] blood [address] 35 image the elbow and knee GB 34 Empirical point to relax tendons GB 35-39 Decrease shoulder, head, and neck tension, balance GB Du Bi image the elbow and knee Note: no points done on ankle or feet due to compression stockings. Treatment chosen using the principles of Dr Carrera's Balance Method. Thirty-eight needles inserted and retained approximately forty minutes. 05/10/16 20:12 Patient is able to answer some questions with more than "yes or no". He still seems to have little to no sensation or movement in his R arm and hand. His partner relayed to me improved speech following the previous acupuncture treatment. Treatment: L side scalp acupuncture: Speech I area Speech II area x 2 Speech III Motor line Sensory line Auricular: Bilateral BFA for TISSUE RECOVERY TECHNICIAN: Cingular Gyrate [place] 2 Rosas Men [place] Zero Left side: LI [address] meridian, mirrors Speech I area/ST 8 (temporal). SI 3 SI 4 SJ 4 HT 5 Tx apashia HT 3 x 3 lyric He Se, Balance GB, KI, image elbow and knee. HT 3-7 Balances GB and mirror Speech II area (parietal). GASTON 5 Resolve Phlegm, Balance BL meridian ST 36 Increase Qi and blood GB 34 Empirical point to relax tendons GB 35-41 Decrease shoulder, head, and neck tension, balance GB. Image parietal area. BL 65 (deep insertion), relax the spine, improve flexion and extension. Alma Rosa point. Improve ROM on BL meridian/paraspinal muscles. GB 40, 41 Relax the occiput, improve bloodflow. KI 3 Balance BL meridian. Improve flexion, extension, and side-bending in cervical spine. LR 3 Move the blood. Improve circulation. Treatment chosen using the principles of Dr Carrera's Balance Method. 05/13/16 17:21 With the direction of Miles's physical therapist, Oleksandr, we will do local acupuncture points on the affected (R) side to encourage dorsiflexion of his foot. Miles continues to improve his vocabulary and was able to verbalize Oleksandr' s name today. He also transferred from his wheelchair to his bed on his own. Treatment: L side scalp acupuncture: Speech I area Speech II area x 3 Speech II Motor Line for Scalp Acupuncture Sensory Line for Scalp Acupuncture Auricular: Bilateral BFA for TISSUE RECOVERY TECHNICIAN: Cingular Gyrate [place] 2 Rosas Men [place] Zero Left side: HT 8 Balance sleep and wake, relax the tongue. HT 5 Tx apashia HT 4, 7 Balance GB, relax the shoulders HT 3 He Se, Balance GB, KI HT 3-8 Balances GB and mirror Speech II area (parietal). GASTON 5 Resolve Phlegm, Balance BL meridian GASTON 9 Balance BL meridian, decrease tension in flexion and extension, base of skull/occiput GASTON 10 [place]rell[place] point, [place] point, relax the throat. LR 3, 7, 8 KI 2, 3, 7 SP 3, 4, 6, 9 x 2 Right Side: LI [address] meridian, mirrors Speech I area/ST 8 (temporal). Ling Gu Relax the LB Da Stacy Relax the LB SI 3 (deep) master point of spine, improve flexion and extension, balance the BL meridian LR 3 x 2 a SP 3, 4 Lyric on bottom of foot ST 36 Increase Qi and blood GB 34 Empirical point to relax tendons GB 35-39 Decrease shoulder, head, and neck tension, balance GB Local muscles stimulated and fasciculation achieved on anterior tibialis and peroneals (ST 36 -37 and GB 34-35). VMO was stimulated without result. Scalp acupuncture needles retained for 1 h 20 minutes. [place] retained on body for 40 minutes. 05/16/16 18:44 Feedback from Miles's partner indicates improved movement in R anterior tibialis and peroneal muscles. Still no movement in R arm or hand. Speech continues to improve with a larger vocabulary and it seems easier for him to pull up words when asked a question. Treatment: L side scalp acupuncture: Speech I area Speech II area x 3 Speech II Motor Line for Scalp Acupuncture Sensory Line for Scalp Acupuncture Auricular: Bilateral BFA for TISSUE RECOVERY TECHNICIAN: Cingular Gyrate [place] 2 Rosas Men [place] Zero Left side: HT 7 Balance GB, relax the shoulders HT 3 He Se, Balance GB, KI LR 3, 7, 8 KI 3, 10 SP 5, 9 x 2 Right Side: LI [address] meridian, mirrors Speech I area/ST 8 (temporal). Ling Gu Relax the LB Da Stacy Relax the LB SI 3 (deep) master point of spine, improve flexion and extension, balance the BL meridian LR 3 x 2 a SP 3, 4 [place] sandra - used as local points on hand (versus for its benefit on the hip) ST 36 Increase Qi and blood GB 34 Empirical point to relax tendons GB 35-39 Decrease shoulder, head, and neck tension, balance GB Local muscles stimulated with electric stimulation anterior tibialis and peroneals (ST 36 -41, then switched ST 36 - LR 3; and GB 34-39, then switched to GB 34 to BL 65). [place] sandra to SI 3; LI 4 to LI 11. Electric stimulation on milliamps turned up as high as patient could tolerate. He has some sensation along the anterior tibialis and peroneals, and no sensation in his arm, however he was aware of his hand spasming with the high stimulation, I am unclear if he felt it, or just saw it. Scalp acupuncture needles retained for 1 h 20 minutes. [place] retained on body for 40 minutes. 05/21/16 17:57 Feedback from Miles's partner indicates improved movement in R anterior tibialis and peroneal muscles, he is getting some movement in his knee with walking. Still no movement in R arm or hand. Speech continues to improve with a larger vocabulary and it seems easier for him to pull up words when asked questions. Patient indicated some fears about going home from the rehabilitation center. With the focused treatments he feels he is making improvements and wants it to continue. Treatment: L side scalp acupuncture: Speech I area Speech II area x 3 Speech II Motor Line for Scalp Acupuncture Sensory Line for Scalp Acupuncture DU 20-23 Auricular: Bilateral BFA for TISSUE RECOVERY TECHNICIAN: Cingular Gyrate [place] 2 Rosas Men [place] Zero Left side: HT 3- 7 Balance GB, relax the shoulders HT 3 He Se, Balance GB, KI LR 3, 7, 8 KI 3, 10 SP 5, 9 x 2 Right Side: LI [address] meridian, mirrors Speech I area/ST 8 (temporal). Ling Gu Relax the LB Da Stacy Relax the LB SI 3 (deep) master point of spine, improve flexion and extension, balance the BL meridian LR 3 SP [address] 36 Increase Qi and blood GB 34 Empirical point to relax tendons GB 35-39 Decrease shoulder, head, and neck tension, balance GB Local muscles stimulated with electric stimulation anterior tibialis and peroneals (ST 36 - SP 3; and GB 34-39). Alma Rosa point between 2nd and 3rd metacarpal - SI 3; LI 4 - LI 11. Electric stimulation on milliamps turned up as high as patient could tolerate. He has some sensation along the anterior tibialis and peroneals. With e-stim, he had contraction and foot movement. Without e-stim and palpation only, he said he had no sensation in his arm, however he was aware of the high stimulation, and asked me to turn it down. He did this by indicating, "ow". Objective: Vital Signs Temp Pulse Resp BP Pulse Ox 36.7 C 81 16 117/78 95 05/21/16 05:36 05/21/16 05:36 05/21/16 05:36 05/21/16 05:36 05/21/16 05:36 Laboratory Results 05/17/16 06:10 04/19/16 17:57 05/20/16 05/21/16 05/22/16 05:59 05:59 05:59 Intake Total 840 806 Output Total 1300 1650 Balance -460 -844 ICD10 Worksheet Patient Problems: Problems Problem Status Onset Aphasia due to recent cerebrovascular accident (CVA) Acute Cerebrovascular accident (CVA) due to occlusion of left middle cerebral artery Acute Hemiplegia and hemiparesis following cerebral infarction affecting right dominant side Acute Neuropathic pain Acute Headache Acute
[2016-05-21] MEDS: ATORVASTATIN CALCIUM 40 MG TAB PO SCH (20:00)
[2016-05-21] MEDS: EFAVIRENZ 600 MG TAB PO SCH (20:02)
[2016-05-22] MEDS: DIDANOSINE 400 MG PO SCH (05:51)
[2016-05-22] MEDS: LEVOTHYROXINE 25 MCG TAB PO SCH (05:52)
[2016-05-22] MEDS: LEVOTHYROXINE 150 MCG TAB PO SCH (05:52)
[2016-05-22] MEDS: FLUoxetine 20 MG CAP PO SCH (10:30)
[2016-05-22] MEDS: ASPIRIN 325 MG TAB PO SCH (10:30)
[2016-05-22] MEDS: POLYETHYLENE GLYCOL 3350 17 GM PKT PO SCH (10:31)
[2016-05-22] MEDS: ZIDOVUDINE 300 MG PO SCH ×2 (10:31→20:04)
--- NOTE | 2016-05-22 15:13 | SOAPPROG ---
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 Initial FIM 30 on 04/20/16; improved to 53 on 04/25/16; to 67 as of ; to 76 as of 05/09/16; 83 as of 05/16/16. Walked 110' quad cane with min A of 1. Climbed and descended 9 stairs one rail. PT notes increased flexor tone RLE but not interfering and no indication for muscle relaxant. T'cj CGA. Accomplished car t'cj with . CGA LB dressing for occ LOB. Reduced LLE proprioception and motor planning deficit. Continue physical therapy and occupational therapy to optimize mobility and activities of daily living. Escitalopram started in hospital, changed on 04/18/16 to fluoxetine 20 mg p.o. q. day in keeping with the protocol of the FLAME trial, which showed improved recovery of motor function in hemiplegic strokes. * Dysphagia and expressive greater than receptive aphasia. Advanced to regular texture diet & thin liquids. Expressive aphasia is improving, able to speak brief sentences; receptive is much improved. Continue Speech and Language Pathology. Able to swallow pills, including efavirenz capsule. * Urinary incontinence. Much improved, no longer needing condom catheter at night as of 05/09/16. * Unclear etiology of the stroke. He has a patient monitor. He has followup planned with clutch inspector, Dr. Barnes 05/22/16 to evaluate for any occult atrial fibrillation. He is being treated with aspirin 325 mg p.o. q. day, as well as atorvastatin as stroke preventive. Question of E-stim affecting heart monitor d /w Dr. Barnes: no affect, proceed with E-stim. * Anemia, macrocytic. Improved 04/26/16 with normal B12, folate, retics. Still markedly macrocytic, due to HIV meds? * Accidental needle stick: labs reviewed from 05/16/16. He is Hep C negative, and HIV viral load is undetectable. Chronic stable or resolved conditions * Human immunodeficiency virus, well controlled. Continue current medications. * Hypothyroidism with adequate supplementation. Continue current levothyroxine dose. * Dehydration with dry mucous membranes and erythema to the posterior hard palate and the soft palate. Resolved after IV hydration 04/22/16. Encourage adequate PO hydration. * MEJIA and increased R tongue deviation 04/20/16: head CT w/out bleed. * Cough, productive, CXR c/w bronchitis, CBC with leukocytosis and left shift. Treated with azithromycin 5 days. Cough is resolved. * Transaminase elevation. Likely due to antiretrovirals, randy efavirenz and didanosine; not likely due to zidovudine. Mild, no change in medications indicated. Hep C neg. * DVT prophylaxis. Now 6 weeks s/p CVA as of 05/21/16. Will D/C enoxaparin. * No visual field cut per occupational therapy. His subjective experience of blurred vision is most likely related to the cerebrovascular accident. The other possibility would be retinal involvement due to the didanosine. He will be observed for improvement. Home visit planned. Continue planned discharge 05/31/16. 05/22/16 15:11 Subjective: No complaints. Denies pain, f/c, cough, dyspnea. Walking is improving. No return of function RUE but notes increased tone with finger flexion. 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
[2016-05-22] MEDS: EFAVIRENZ 600 MG TAB PO SCH (20:04)
[2016-05-22] MEDS: ATORVASTATIN CALCIUM 40 MG TAB PO SCH (20:25)
[2016-05-23] MEDS: DIDANOSINE 400 MG PO SCH (06:10)
[2016-05-23] MEDS: LEVOTHYROXINE 125 MCG TAB PO SCH (06:10)
[2016-05-23] MEDS: POLYETHYLENE GLYCOL 3350 17 GM PKT PO SCH (08:44)
[2016-05-23] MEDS: ASPIRIN 325 MG TAB PO SCH (08:44)
[2016-05-23] MEDS: FLUoxetine 20 MG CAP PO SCH (08:44)
[2016-05-23] MEDS: ZIDOVUDINE 300 MG PO SCH ×2 (08:44→21:54)
--- NOTE | 2016-05-23 12:23 | SOAPPROG ---
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 Initial FIM 30 on 04/20/16; improved to 53 on 04/25/16; to 67 as of ; to 76 as of 05/09/16; 81 as of 05/16/16; 93 as of 05/23/16. Walked 150' SBA/ CGA with AFO. Climbed and descended 12 stairs one rail. ADLs with distant S except shower t'cj SBA/cues. Reduced LLE proprioception and motor planning deficit. Continue physical therapy and occupational therapy to optimize mobility and activities of daily living. Escitalopram started in hospital, changed on 04/18/16 to fluoxetine 20 mg p.o. q. day in keeping with the protocol of the FLAME trial, which showed improved recovery of motor function in hemiplegic strokes. * Dysphagia and expressive greater than receptive aphasia. Advanced to regular texture diet & thin liquids. Expressive aphasia is improving, able to speak brief sentences especially with structure and cueing; receptive is much improved. Continue Speech and Language Pathology. Able to swallow pills, including efavirenz capsule. * Urinary incontinence. Resolved. * Unclear etiology of the stroke. He has a gopherman. He has followup planned with candy separator enrobing, Dr. Barnes 05/22/16 to evaluate for any occult atrial fibrillation. He is being treated with aspirin 325 mg p.o. q. day, as well as atorvastatin as stroke preventive. Question of E-stim affecting heart monitor d /w Dr. Barnes: no affect, proceed with E-stim. * Anemia, macrocytic. Improved 04/26/16 with normal B12, folate, retics. Still markedly macrocytic, due to HIV meds? * Accidental needle stick: labs reviewed from 05/16/16. He is Hep C negative, and HIV viral load is undetectable. Chronic stable or resolved conditions * Human immunodeficiency virus, well controlled. Continue current medications. * Hypothyroidism with adequate supplementation. Continue current levothyroxine dose. * Dehydration with dry mucous membranes and erythema to the posterior hard palate and the soft palate. Resolved after IV hydration 04/22/16. Encourage adequate PO hydration. * MEJIA and increased R tongue deviation 04/20/16: head CT w/out bleed. * Cough, productive, CXR c/w bronchitis, CBC with leukocytosis and left shift. Treated with azithromycin 5 days. Cough is resolved. * Transaminase elevation. Likely due to antiretrovirals, randy efavirenz and didanosine; not likely due to zidovudine. Mild, no change in medications indicated. Hep C neg. * DVT prophylaxis. Now 6 weeks s/p CVA as of 05/21/16. Will D/C enoxaparin. * No visual field cut per occupational therapy. His subjective experience of blurred vision is most likely related to the cerebrovascular accident. The other possibility would be retinal involvement due to the didanosine. He will be observed for improvement. Attended staffing, 15 min. D/W case mgmt, nursing, PT, OT, ETHNOGRAPHER. Home visit planned. Close to I in room, I with transfers and ADLs. Would benefit from one more week than currently planned. placement manager to communicate with insurance re extending discharge date from 05/31/16 to 06/07/16. 05/23/16 12:18 Subjective: No complaints. Denies f/c, cough/dyspnea. Objective: Vital Signs Temp Pulse Resp BP Pulse Ox 36.5 C 78 16 120/82 H 94 05/23/16 06:12 05/23/16 06:12 05/23/16 06:12 05/23/16 06:12 05/23/16 06:12 Laboratory Results 05/17/16 06:10 04/19/16 17:57 05/22/16 05/23/16 05/24/16 05:59 05:59 05:59 Intake Total 440 600 Output Total 1025 520 Balance -1025 -80 600 - Time Spent With Patient Time Spent With Patient: Greater than 35 minutes floor time today, including more than 50% of time in coordination of care during staffing meeting, and counseling patient. Physical Exam - Physical Exam General Appearance: WD/WN, alert, no apparent distress Respiratory: No respiratory distress, No accessory muscle use Skin: normal color, warm/dry Neuro/Psych: alert, normal mood/affect, motor weakness (RUE > RLE) ICD10 Worksheet Patient Problems: Problems Problem Status Onset Aphasia due to recent cerebrovascular accident (CVA) Acute Cerebrovascular accident (CVA) due to occlusion of left middle cerebral artery Acute Hemiplegia and hemiparesis following cerebral infarction affecting right dominant side Acute Neuropathic pain Acute Headache Acute
[2016-05-23] MEDS: EFAVIRENZ 600 MG TAB PO SCH (21:54)
[2016-05-23] MEDS: ATORVASTATIN CALCIUM 40 MG TAB PO SCH (21:56)
[2016-05-24] MEDS: LEVOTHYROXINE 25 MCG TAB PO SCH (06:32)
[2016-05-24] MEDS: LEVOTHYROXINE 150 MCG TAB PO SCH (06:32)
[2016-05-24] MEDS: DIDANOSINE 400 MG PO SCH (06:33)
[2016-05-24] MEDS: FLUoxetine 20 MG CAP PO SCH (08:30)
[2016-05-24] MEDS: ASPIRIN 325 MG TAB PO SCH (08:30)
[2016-05-24] MEDS: ZIDOVUDINE 300 MG PO SCH ×2 (08:34→21:07)
[2016-05-24] MEDS: POLYETHYLENE GLYCOL 3350 17 GM PKT PO SCH (12:19)
--- NOTE | 2016-05-24 13:18 | SOAPPROG ---
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 Initial FIM 30 on 04/20/16; improved to 53 on 04/25/16; to 67 as of ; to 76 as of 05/09/16; 81 as of 05/16/16; 93 as of 05/23/16. Walked 150' SBA/ CGA with AFO. Climbed and descended 12 stairs one rail. ADLs with distant S except shower t'cj SBA/cues. Reduced LLE proprioception and motor planning deficit. Continue physical therapy and occupational therapy to optimize mobility and activities of daily living. Escitalopram started in hospital, changed on 04/18/16 to fluoxetine 20 mg p.o. q. day in keeping with the protocol of the FLAME trial, which showed improved recovery of motor function in hemiplegic strokes. * Dysphagia and expressive greater than receptive aphasia. Advanced to regular texture diet & thin liquids. Expressive aphasia is improving, able to speak brief sentences especially with structure and cueing; receptive is much improved. Continue Speech and Language Pathology. Able to swallow pills, including efavirenz capsule. * Urinary incontinence. Resolved. * Unclear etiology of the stroke. He has a clinical research monitor. He has followup planned with dry press operator helper, Dr. Barnes 05/22/16 to evaluate for any occult atrial fibrillation. He is being treated with aspirin 325 mg p.o. q. day, as well as atorvastatin as stroke preventive. Question of E-stim affecting heart monitor d /w Dr. Barnes: no affect, proceed with E-stim. * Anemia, macrocytic. Improved 04/26/16 with normal B12, folate, retics. Still markedly macrocytic, due to HIV meds? * Accidental needle stick: labs reviewed from 05/16/16. He is Hep C negative, and HIV viral load is undetectable. Chronic stable or resolved conditions * Human immunodeficiency virus, well controlled. Continue current medications. * Hypothyroidism with adequate supplementation. Continue current levothyroxine dose. * Dehydration with dry mucous membranes and erythema to the posterior hard palate and the soft palate. Resolved after IV hydration 04/22/16. Encourage adequate PO hydration. * MEJIA and increased R tongue deviation 04/20/16: head CT w/out bleed. * Cough, productive, CXR c/w bronchitis, CBC with leukocytosis and left shift. Treated with azithromycin 5 days. Cough is resolved. * Transaminase elevation. Likely due to antiretrovirals, randy efavirenz and didanosine; not likely due to zidovudine. Mild, no change in medications indicated. Hep C neg. * DVT prophylaxis. Now 6 weeks s/p CVA as of 05/21/16. Will D/C enoxaparin. * No visual field cut per occupational therapy. His subjective experience of blurred vision is most likely related to the cerebrovascular accident. The other possibility would be retinal involvement due to the didanosine. He will be observed for improvement. Home visit planned. Close to I in room, I with transfers and ADLs. Would benefit from one more week than currently planned. database administration project manager to communicate with insurance re extending discharge date from 05/31/16 to 06/07/16. Mr. Daniels needs a wheelchair. He has a mobility limitation that significantly impairs one or more mobility-related ADLs in the home; functional mobility deficit that cannot be resolved with a walker or cane; home is adequate for accessing rooms, maneuvering space and surfaces;wheelchair will significantly improve hisability to participate in MRADLs and he will use it regularly; he has not expressed an unwillingness to use a wheelchair; and he has sufficient mental ability to safely use a wheelchair. 05/24/16 13:13 Objective: Vital Signs Temp Pulse Resp BP Pulse Ox 36.7 C 71 16 118/80 95 05/24/16 08:00 05/24/16 08:00 05/24/16 08:00 05/24/16 08:00 05/24/16 08:00 Laboratory Results 05/17/16 06:10 04/19/16 17:57 05/23/16 05/24/16 05/25/16 05:59 05:59 05:59 Intake Total 440 1760 120 Output Total 520 500 Balance -80 1260 120 ICD10 Worksheet Patient Problems: Problems Problem Status Onset Aphasia due to recent cerebrovascular accident (CVA) Acute Cerebrovascular accident (CVA) due to occlusion of left middle cerebral artery Acute Hemiplegia and hemiparesis following cerebral infarction affecting right dominant side Acute Neuropathic pain Acute Headache Acute
--- NOTE | 2016-05-24 15:43 | SOAPPROG ---
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 Initial FIM 30 on 04/20/16; improved to 53 on 04/25/16; to 67 as of ; to 76 as of 05/09/16; 81 as of 05/16/16; 93 as of 05/23/16. Walked 150' SBA/ CGA with AFO. Climbed and descended 12 stairs one rail. ADLs with distant S except shower t'cj SBA/cues. Reduced LLE proprioception and motor planning deficit. Continue physical therapy and occupational therapy to optimize mobility and activities of daily living. Escitalopram started in hospital, changed on 04/18/16 to fluoxetine 20 mg p.o. q. day in keeping with the protocol of the FLAME trial, which showed improved recovery of motor function in hemiplegic strokes. * Dysphagia and expressive greater than receptive aphasia. Advanced to regular texture diet & thin liquids. Expressive aphasia is improving, able to speak brief sentences especially with structure and cueing; receptive is much improved. Continue Speech and Language Pathology. Able to swallow pills, including efavirenz capsule. * Urinary incontinence. Resolved. * Unclear etiology of the stroke. He has a groundwater monitoring technician. He has followup planned with hearth feeder, Dr. Barnes 05/22/16 to evaluate for any occult atrial fibrillation. He is being treated with aspirin 325 mg p.o. q. day, as well as atorvastatin as stroke preventive. Question of E-stim affecting heart monitor d /w Dr. Barnes: no affect, proceed with E-stim. * Anemia, macrocytic. Improved 04/26/16 with normal B12, folate, retics. Still markedly macrocytic, due to HIV meds? Chronic stable or resolved conditions * Human immunodeficiency virus, well controlled. Continue current medications. * Accidental needle stick: labs reviewed from 05/16/16. He is Hep C negative, and HIV viral load is undetectable. * Hypothyroidism with adequate supplementation. Continue current levothyroxine dose. * Dehydration with dry mucous membranes and erythema to the posterior hard palate and the soft palate. Resolved after IV hydration 04/22/16. Encourage adequate PO hydration. * MEJIA and increased R tongue deviation 04/20/16: head CT w/out bleed. * Cough, productive, CXR c/w bronchitis, CBC with leukocytosis and left shift. Treated with azithromycin 5 days. Cough is resolved. * Transaminase elevation. Likely due to antiretrovirals, randy efavirenz and didanosine; not likely due to zidovudine. Mild, no change in medications indicated. Hep C neg. * DVT prophylaxis. Now 6 weeks s/p CVA as of 05/21/16. Will D/C enoxaparin. * No visual field cut per occupational therapy. His subjective experience of blurred vision is most likely related to the cerebrovascular accident. The other possibility would be retinal involvement due to the didanosine. He will be observed for improvement. Home visit planned. Close to I in room, I with transfers and ADLs. Would benefit from one more week than currently planned. Attempted doc to doc case review with Dr. Solis of [facility]. Extension of stay denied. Discharge 05/28/16. Would pay for SNF if not ready to go home. Mr. Daniels needs a wheelchair. He has a mobility limitation that significantly impairs one or more mobility-related ADLs in the home; functional mobility deficit that cannot be resolved with a walker or cane; home is adequate for accessing rooms, maneuvering space and surfaces;wheelchair will significantly improve his ability to participate in MRADLs and he will use it regularly; he has not expressed an unwillingness to use a wheelchair; and he has sufficient mental ability to safely use a wheelchair. 05/24/16 15:41 Subjective: No complaints. Says he's walking better. Sleeping well, no f/c, no cough/ dyspnea. Objective: Vital Signs Temp Pulse Resp BP Pulse Ox 36.7 C 71 16 118/80 95 05/24/16 08:00 05/24/16 08:00 05/24/16 08:00 05/24/16 08:00 05/24/16 08:00 Laboratory Results 05/17/16 06:10 04/19/16 17:57 05/23/16 05/24/16 05/25/16 05:59 05:59 05:59 Intake Total 440 1760 1060 Output Total 520 500 Balance -80 1260 1060 Physical Exam - Physical Exam General Appearance: WD/WN, alert, no apparent distress Respiratory: normal breath sounds, No crackles, No rhonchi, No wheezing Cardiac/Chest: regular rate, rhythm, No edema Skin: normal color, warm/dry Neuro/Psych: alert, normal mood/affect, oriented x 3, motor weakness (RUE flaccid paralysis) ICD10 Worksheet Patient Problems: Problems Problem Status Onset Aphasia due to recent cerebrovascular accident (CVA) Acute Cerebrovascular accident (CVA) due to occlusion of left middle cerebral artery Acute Hemiplegia and hemiparesis following cerebral infarction affecting right dominant side Acute Neuropathic pain Acute Headache Acute
[2016-05-24] MEDS: ATORVASTATIN CALCIUM 40 MG TAB PO SCH (21:06)
[2016-05-24] MEDS: EFAVIRENZ 600 MG TAB PO SCH (21:07)
[2016-05-25] MEDS: LEVOTHYROXINE 125 MCG TAB PO SCH (06:29)
[2016-05-25] MEDS: DIDANOSINE 400 MG PO SCH (06:30)
[2016-05-25] MEDS: FLUoxetine 20 MG CAP PO SCH (09:06)
[2016-05-25] MEDS: ASPIRIN 325 MG TAB PO SCH (09:06)
[2016-05-25] MEDS: ZIDOVUDINE 300 MG PO SCH ×2 (09:07→21:01)
[2016-05-25] MEDS: POLYETHYLENE GLYCOL 3350 17 GM PKT PO SCH (09:09)
--- NOTE | 2016-05-25 15:07 | SOAPPROG ---
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 Initial FIM 30 on 04/20/16; improved to 53 on 04/25/16; to 67 as of ; to 76 as of 05/09/16; 81 as of 05/16/16; 93 as of 05/23/16. Walked 150' SBA/ CGA with AFO. Climbed and descended 12 stairs one rail. ADLs with distant S except shower t'cj SBA/cues. Reduced LLE proprioception and motor planning deficit. Continue physical therapy and occupational therapy to optimize mobility and activities of daily living. Escitalopram started in hospital, changed on 04/18/16 to fluoxetine 20 mg p.o. q. day in keeping with the protocol of the FLAME trial, which showed improved recovery of motor function in hemiplegic strokes. * Dysphagia and expressive greater than receptive aphasia. Advanced to regular texture diet & thin liquids. Expressive aphasia is improving, able to speak brief sentences especially with structure and cueing; receptive is much improved. Continue Speech and Language Pathology. Able to swallow pills, including efavirenz capsule. * Urinary incontinence. Resolved. * Unclear etiology of the stroke. He has a tests superintendent. He has followup planned with blindstitch machine operator, Dr. Barnes 05/22/16 to evaluate for any occult atrial fibrillation. He is being treated with aspirin 325 mg p.o. q. day, as well as atorvastatin as stroke preventive. Question of E-stim affecting heart monitor d /w Dr. Barnes: no affect, proceed with E-stim. * Anemia, macrocytic. Improved 04/26/16 with normal B12, folate, retics. Still markedly macrocytic, due to HIV meds? Chronic stable or resolved conditions * Human immunodeficiency virus, well controlled. Continue current medications. * Accidental needle stick: labs reviewed from 05/16/16. He is Hep C negative, and HIV viral load is undetectable. * Hypothyroidism with adequate supplementation. Continue current levothyroxine dose. * Dehydration with dry mucous membranes and erythema to the posterior hard palate and the soft palate. Resolved after IV hydration 04/22/16. Encourage adequate PO hydration. * MEJIA and increased R tongue deviation 04/20/16: head CT w/out bleed. * Cough, productive, CXR c/w bronchitis, CBC with leukocytosis and left shift. Treated with azithromycin 5 days. Cough is resolved. * Transaminase elevation. Likely due to antiretrovirals, randy efavirenz and didanosine; not likely due to zidovudine. Mild, no change in medications indicated. Hep C neg. * DVT prophylaxis. Now 6 weeks s/p CVA as of 05/21/16. Will D/C enoxaparin. * No visual field cut per occupational therapy. His subjective experience of blurred vision is most likely related to the cerebrovascular accident. The other possibility would be retinal involvement due to the didanosine. He will be observed for improvement. Home visit planned. Close to I in room, I with transfers and ADLs. Would benefit from one more week than currently planned. Attempted doc to doc case review with Dr. Solis of [facility]. Extension of stay denied. Discharge 05/28/16. Would pay for SNF if not ready to go home. Mr. Daniels needs a wheelchair. He has a mobility limitation that significantly impairs one or more mobility-related ADLs in the home; functional mobility deficit that cannot be resolved with a walker or cane; home is adequate for accessing rooms, maneuvering space and surfaces;wheelchair will significantly improve his ability to participate in MRADLs and he will use it regularly; he has not expressed an unwillingness to use a wheelchair; and he has sufficient mental ability to safely use a wheelchair. 05/25/16 15:06 Subjective: No complaints. Denies f/c, cough, dyspnea. Objective: Vital Signs Temp Pulse Resp BP Pulse Ox 36.9 C 79 16 119/81 H 95 05/25/16 08:00 05/25/16 08:00 05/25/16 08:00 05/25/16 08:00 05/25/16 08:00 Laboratory Results 05/17/16 06:10 04/19/16 17:57 05/24/16 05/25/16 05/26/16 05:59 05:59 05:59 Intake Total 1760 1690 810 Output Total 500 450 Balance 1260 1240 810 Physical Exam - Physical Exam General Appearance: WD/WN, alert, no apparent distress Respiratory: No respiratory distress, No accessory muscle use Skin: normal color, warm/dry Neuro/Psych: alert, normal mood/affect, motor weakness (RUE >> RLE. Self- propelling wheelchair independently in [place].) ICD10 Worksheet Patient Problems: Problems Problem Status Onset Aphasia due to recent cerebrovascular accident (CVA) Acute Cerebrovascular accident (CVA) due to occlusion of left middle cerebral artery Acute Hemiplegia and hemiparesis following cerebral infarction affecting right dominant side Acute Neuropathic pain Acute Headache Acute
[2016-05-25] MEDS: ATORVASTATIN CALCIUM 40 MG TAB PO SCH (21:01)
[2016-05-25] MEDS: EFAVIRENZ 600 MG TAB PO SCH (21:02)
[2016-05-26] MEDS: LEVOTHYROXINE 150 MCG TAB PO SCH (05:54)
[2016-05-26] MEDS: LEVOTHYROXINE 25 MCG TAB PO SCH (05:54)
[2016-05-26] MEDS: DIDANOSINE 400 MG PO SCH (05:54)
[2016-05-26] MEDS: ZIDOVUDINE 300 MG PO SCH ×2 (09:46→21:08)
[2016-05-26] MEDS: POLYETHYLENE GLYCOL 3350 17 GM PKT PO SCH (09:46)
[2016-05-26] MEDS: FLUoxetine 20 MG CAP PO SCH (09:46)
[2016-05-26] MEDS: ASPIRIN 325 MG TAB PO SCH (09:46)
--- NOTE | 2016-05-26 17:30 | SOAPPROG ---
SOAP Progress Note Assessment/Plan: Assessment: Acupuncture services were requested post-stroke by Dr. Oviedo. This patient has no movement in his R arm and is aphasic. He seems cognitively aware and is able to answer yes and no questions. I asked him to point to the part of his body that was "the most frustrating". He pointed to his R hand. There is no movement or motor control. Treatment: L side scalp acupuncture: Speech I area Speech II area x 3 Du 20-23 Auricular: Bilateral BFA for COMMODITIES TRADER: Cingular Gyrate Cicero 2 Rosas Men [place] Zero Left side: HT 9 Estrellita Well for acute stroke, reduce cerebral inflammation. PC 9 Estrellita Well for acute stroke, reduce cerebral inflammation. GASTON 11 Estrellita Well for acute stroke, reduce cerebral inflammation. LI [address] meridian, mirrors Speech I area/ST 8 (temporal). Ling Gu Relax the LB Da Stacy Relax the LB HT 8 Balance sleep and wake, relax the tongue. HT 5 Tx apashia HT 4, 7 Balance GB, relax the shoulders HT 3 He Se, Balance GB, KI HT 3-8 Balances GB and mirror Speech II area (parietal). GASTON 5 Resolve Phlegm, Balance BL meridian GASTON 9 Balance BL meridian, decrease tension in flexion and extension, base of skull/occiput ST 36 Increase Qi and blood GB 34 Empirical point to relax tendons GB 35-39 Decrease shoulder, head, and neck tension, balance GB Note: no points done on ankle or feet due to compression stockings. Patient had a visitor before the treatment had started. I asked him if he had had a lot of visitors and if he wanted them. "Yes" to the first question, "no" to the latter. Relayed this information to his nurse to discuss management of visitors with his partner. Plan: The best frequency to treat the symptoms of stroke is daily. The best window of time is three weeks to three months. I will discuss this with his providers and care givers. My recommendations is a minimum of two times per week with needles retained 45 minutes - 1 hour each time. 04/26/16 18:26 05/03/16 16:57 Assessment: Acupuncture services were requested post-stroke by Dr. Oviedo. This patient has no movement in his R arm and is aphasic. He seems cognitively aware and is able to answer yes and no questions. I asked him to point to the part of his body that was "the most frustrating". He pointed to his R hand. There is no movement or motor control. Today he was able to lift and straighten his R leg - straight leg raise, initiated from the hip. The patient had some apprehension about acupuncture as it is "new" and does not love the needles, but felt it helped and wants to continue. Treatment: L side scalp acupuncture: Speech I area Speech II area x 3 Speech III Du 22 Auricular: L BFA for COMMODITIES TRADER: Cingular Gyrate Cicero 2 Rosas Men [place] Zero Left side: LI [address] meridian, mirrors Speech I area/ST 8 (temporal). SI 3 Relax the spine and reduce any spasms in paraspinals, balance BL meridian. SJ 3 Relax the neck, balance the GB meridian, improve blood flow in lateral neck. HT 8 Balance sleep and wake, relax the tongue. HT 5 Tx apashia HT 4, 7 Balance GB, relax the shoulders ST 36 Increase Qi and blood GB 34 Empirical point to relax tendons SP [address] meridian KI 10 Balance the BL meridian Note: no points done on ankle or feet due to compression stockings. [place] were retained for forty minutes. Plan: Discussed a treatment plan with his partner, Roe. We will try to arrange acupuncture two times per week. 05/07/16 17:40 Patient is regaining strength and movement from his R hip. He has little movement in his R knee, R arm, R elbow, R forearm, and R hand. Through gesturing and yes/no questions the patient indicated he has less sensation below his R elbow and R hand than his upper arm - bicep, deltoid, and tricep. He continues to have difficulty pulling up words, but is able to speak in longer sentences when he offers information rather than asked a question. He seems to be able to comprehend what is being said or asked, but has difficulty finding the words. He did express apprehension about acupuncture (some level of needle phobia), but he would like to continue with the treatments. The treatment today has three main focuses: scalp acupuncture to improve his speech, neurological to reduce inflammation and swelling (by improving blood flow and circulation) that may contribute to any of the symptoms of the stroke, and "direct imaging" of the areas affected by the stroke: tongue, elbow, forearm , hand, and knee. Treatment: L side scalp acupuncture: Seech I area Speech II area x 2 Speech III Auricular: Bilateral BFA for COMMODITIES TRADER: Cingular Gyrate Cicero 2 Rosas Men [place] Zero Left side: LI [address] meridian, mirrors Speech I area/ST 8 (temporal). HT 8 Balance sleep and wake, relax the tongue. HT 5 Tx apashia HT 4, 7 Balance GB, relax the shoulders HT 3 x 3 lyric He Se, Balance GB, KI, image elbow and knee. HT 3-8 Balances GB and mirror Speech II area (parietal). PC 3 x 3 Balance the LR meridian. Reduce LR Wind. Image the knee and elbow. GASTON 5 Resolve Phlegm, Balance BL meridian GASTON 9 Balance BL meridian, decrease tension in flexion and extension, base of skull/occiput GASTON 10 Relax the throat, Balance the BL meridian ST [address] blood [address] 35 image the elbow and knee GB 34 Empirical point to relax tendons GB 35-39 Decrease shoulder, head, and neck tension, balance GB Du Bi image the elbow and knee Note: no points done on ankle or feet due to compression stockings. Treatment chosen using the principles of Dr Carrera's Balance Method. Thirty-eight needles inserted and retained approximately forty minutes. 05/10/16 20:12 Patient is able to answer some questions with more than "yes or no". He still seems to have little to no sensation or movement in his R arm and hand. His partner relayed to me improved speech following the previous acupuncture treatment. Treatment: L side scalp acupuncture: Speech I area Speech II area x 2 Speech III Motor line Sensory line Auricular: Bilateral BFA for COMMODITIES TRADER: Cingular Gyrate Cicero 2 Rosas Men [place] Zero Left side: LI [address] meridian, mirrors Speech I area/ST 8 (temporal). SI 3 SI 4 SJ 4 HT 5 Tx apashia HT 3 x 3 lyric He Se, Balance GB, KI, image elbow and knee. HT 3-7 Balances GB and mirror Speech II area (parietal). GASTON 5 Resolve Phlegm, Balance BL meridian ST 36 Increase Qi and blood GB 34 Empirical point to relax tendons GB 35-41 Decrease shoulder, head, and neck tension, balance GB. Image parietal area. BL 65 (deep insertion), relax the spine, improve flexion and extension. Alma Rosa point. Improve ROM on BL meridian/paraspinal muscles. GB 40, 41 Relax the occiput, improve bloodflow. KI 3 Balance BL meridian. Improve flexion, extension, and side-bending in cervical spine. LR 3 Move the blood. Improve circulation. Treatment chosen using the principles of Dr Carrera's Balance Method. 05/13/16 17:21 With the direction of Miles's physical therapist, Oleksandr, we will do local acupuncture points on the affected (R) side to encourage dorsiflexion of his foot. Miles continues to improve his vocabulary and was able to verbalize Oleksandr' s name today. He also transferred from his wheelchair to his bed on his own. Treatment: L side scalp acupuncture: Speech I area Speech II area x 3 Speech II Motor Line for Scalp Acupuncture Sensory Line for Scalp Acupuncture Auricular: Bilateral BFA for COMMODITIES TRADER: Cingular Gyrate Cicero 2 Rosas Men [place] Zero Left side: HT 8 Balance sleep and wake, relax the tongue. HT 5 Tx apashia HT 4, 7 Balance GB, relax the shoulders HT 3 He Se, Balance GB, KI HT 3-8 Balances GB and mirror Speech II area (parietal). GASTON 5 Resolve Phlegm, Balance BL meridian GASTON 9 Balance BL meridian, decrease tension in flexion and extension, base of skull/occiput GASTON 10 Estrellita [place] point, [place] point, relax the throat. LR 3, 7, 8 KI 2, 3, 7 SP 3, 4, 6, 9 x 2 Right Side: LI [address] meridian, mirrors Speech I area/ST 8 (temporal). Ling Gu Relax the LB Da Stacy Relax the LB SI 3 (deep) master point of spine, improve flexion and extension, balance the BL meridian LR 3 x 2 a SP 3, 4 Lyric on bottom of foot [address] 36 Increase Qi and blood GB 34 Empirical point to relax tendons GB 35-39 Decrease shoulder, head, and neck tension, balance GB Local muscles stimulated and fasciculation achieved on anterior tibialis and peroneals (ST 36 -37 and GB 34-35). VMO was stimulated without result. Scalp acupuncture needles retained for 1 h 20 minutes. [place] retained on body for 40 minutes. 05/16/16 18:44 Feedback from Miles's partner indicates improved movement in R anterior tibialis and peroneal muscles. Still no movement in R arm or hand. Speech continues to improve with a larger vocabulary and it seems easier for him to pull up words when asked a question. Treatment: L side scalp acupuncture: Speech I area Speech II area x 3 Speech II Motor Line for Scalp Acupuncture Sensory Line for Scalp Acupuncture Auricular: Bilateral BFA for COMMODITIES TRADER: Cingular Gyrate Cicero 2 Rosas Men [place] Zero Left side: HT 7 Balance GB, relax the shoulders HT 3 He Se, Balance GB, KI LR 3, 7, 8 KI 3, 10 SP 5, 9 x 2 Right Side: LI [address] meridian, mirrors Speech I area/ST 8 (temporal). Ling Gu Relax the LB Da Stacy Relax the LB SI 3 (deep) master point of spine, improve flexion and extension, balance the BL meridian LR 3 x 2 a SP 3, 4 [place] sandra - used as local points on hand (versus for its benefit on the hip) ST 36 Increase Qi and blood GB 34 Empirical point to relax tendons GB 35-39 Decrease shoulder, head, and neck tension, balance GB Local muscles stimulated with electric stimulation anterior tibialis and peroneals (ST 36 -41, then switched ST 36 - LR 3; and GB 34-39, then switched to GB 34 to BL 65). [place] sandra to SI 3; LI 4 to LI 11. Electric stimulation on milliamps turned up as high as patient could tolerate. He has some sensation along the anterior tibialis and peroneals, and no sensation in his arm, however he was aware of his hand spasming with the high stimulation, I am unclear if he felt it, or just saw it. Scalp acupuncture needles retained for 1 h 20 minutes. [place] retained on body for 40 minutes. 05/21/16 17:57 Feedback from Miles's partner indicates improved movement in R anterior tibialis and peroneal muscles, he is getting some movement in his knee with walking. Still no movement in R arm or hand. Speech continues to improve with a larger vocabulary and it seems easier for him to pull up words when asked questions. Patient indicated some fears about going home from the rehabilitation center. With the focused treatments he feels he is making improvements and wants it to continue. Treatment: L side scalp acupuncture: Speech I area Speech II area x 3 Speech II Motor Line for Scalp Acupuncture Sensory Line for Scalp Acupuncture DU 20-23 Auricular: Bilateral BFA for COMMODITIES TRADER: Cingular Gyrate Cicero 2 Rosas Men [place] Zero Left side: HT 3- 7 Balance GB, relax the shoulders HT 3 He Se, Balance GB, KI LR 3, 7, 8 KI 3, 10 SP 5, 9 x 2 Right Side: LI [address] meridian, mirrors Speech I area/ST 8 (temporal). Marni Jesus Relax the LB Da Stacy Relax the LB SI 3 (deep) master point of spine, improve flexion and extension, balance the BL meridian LR 3 SP [address] Increase Qi and blood GB 34 Empirical point to relax tendons GB 35-39 Decrease shoulder, head, and neck tension, balance GB Local muscles stimulated with electric stimulation anterior tibialis and peroneals (ST 36 - SP 3; and GB 34-39). Alma Rosa point between 2nd and 3rd metacarpal - SI 3; LI 4 - LI 11. Electric stimulation on milliamps turned up as high as patient could tolerate. He has some sensation along the anterior tibialis and peroneals. With e-stim, he had contraction and foot movement. Without e-stim and palpation only, he said he had no sensation in his arm, however he was aware of the high stimulation, and asked me to turn it down. He did this by indicating, "ow". 05/26/16 17:11 This was Miles's longest period without acupuncture since beginning treatment. When asked what he noticed most about not having it, he did not know, but is aware of easier language and thought when he has treatment. Treatment: L side scalp acupuncture: Speech I area Speech II area x 3 Speech II Motor Line for Scalp Acupuncture Sensory Line for Scalp Acupuncture DU 20-23 Auricular: Bilateral BFA for COMMODITIES TRADER: Cingular Gyrate Cicero 2 [facility] [place] Zero Left side: HT 3- 7 Balance GB, relax the shoulders HT 3 He Se, Balance GB, KI GASTON 5 LR 3, 7, 8 KI 3, 4, 7, 10 SP 5, 9 x 2 Right Side: LI [address] meridian, mirrors Speech I area/ST 8 (temporal). Marni Jesus Relax the LB Da Stacy Relax the LB SI 3 (deep) master point of spine, improve flexion and extension, balance the BL meridian [place] Sandra LR [address] Increase Qi and blood GB 34 Empirical point to relax tendons GB 35-39 Decrease shoulder, head, and neck tension, balance GB Local muscles stimulated with electric stimulation anterior tibialis and peroneals (ST 36 - LR 3; and GB 34-BL 65). Electric stimulation on R hand [place] Sandra, lateral to medial, and LI 4 - SI 3. Electric stimulation on milliamps turned up as high as patient could tolerate. He has some sensation along the anterior tibialis and peroneals. With e-stim, he had contraction and foot movement. Without e-stim and palpation only, he said he had no sensation in his arm or hand, however he was aware of the high stimulation in his hand, and asked me to turn it down. He did this by indicating, "ow". Objective: Vital Signs Temp Pulse Resp BP Pulse Ox 36.5 C 77 16 110/71 96 05/26/16 08:00 05/26/16 08:00 05/26/16 08:00 05/26/16 08:00 05/26/16 08:00 Laboratory Results 05/17/16 06:10 04/19/16 17:57 05/25/16 05/26/16 05/27/16 05:59 05:59 05:59 Intake Total 1690 2000 472 Output Total 450 300 Balance 1240 1700 472 ICD10 Worksheet Patient Problems: Problems Problem Status Onset Aphasia due to recent cerebrovascular accident (CVA) Acute Cerebrovascular accident (CVA) due to occlusion of left middle cerebral artery Acute Hemiplegia and hemiparesis following cerebral infarction affecting right dominant side Acute Neuropathic pain Acute Headache Acute
--- NOTE | 2016-05-26 19:04 | SOAPPROG ---
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 Initial FIM 30 on 04/20/16; improved to 53 on 04/25/16; to 67 as of ; to 76 as of 05/09/16; 81 as of 05/16/16; 93 as of 05/23/16. Walked 150' SBA/ CGA with AFO. Climbed and descended 12 stairs one rail. ADLs with distant S except shower t'cj SBA/cues. Reduced LLE proprioception and motor planning deficit. Continue physical therapy and occupational therapy to optimize mobility and activities of daily living. Escitalopram started in hospital, changed on 04/18/16 to fluoxetine 20 mg p.o. q. day in keeping with the protocol of the FLAME trial, which showed improved recovery of motor function in hemiplegic strokes. * Dysphagia and expressive greater than receptive aphasia. Advanced to regular texture diet & thin liquids. Expressive aphasia is improving, able to speak brief sentences especially with structure and cueing; receptive is much improved. Continue Speech and Language Pathology. Able to swallow pills, including efavirenz capsule. * Urinary incontinence. Resolved. * Unclear etiology of the stroke. He has a telemetry monitor. He has followup planned with gluing machine operator, Dr. Barnes 05/22/16 to evaluate for any occult atrial fibrillation. He is being treated with aspirin 325 mg p.o. q. day, as well as atorvastatin as stroke preventive. Question of E-stim affecting heart monitor d /w Dr. Barnes: no affect, proceed with E-stim. * Anemia, macrocytic. Improved 04/26/16 with normal B12, folate, retics. Still markedly macrocytic, due to HIV meds? Chronic stable or resolved conditions * Human immunodeficiency virus, well controlled. Continue current medications. * Accidental needle stick: labs reviewed from 05/16/16. He is Hep C negative, and HIV viral load is undetectable. * Hypothyroidism with adequate supplementation. Continue current levothyroxine dose. * Dehydration with dry mucous membranes and erythema to the posterior hard palate and the soft palate. Resolved after IV hydration 04/22/16. Encourage adequate PO hydration. * MEJIA and increased R tongue deviation 04/20/16: head CT w/out bleed. * Cough, productive, CXR c/w bronchitis, CBC with leukocytosis and left shift. Treated with azithromycin 5 days. Cough is resolved. * Transaminase elevation. Likely due to antiretrovirals, randy efavirenz and didanosine; not likely due to zidovudine. Mild, no change in medications indicated. Hep C neg. * DVT prophylaxis. Now 6 weeks s/p CVA as of 05/21/16. Will D/C enoxaparin. * No visual field cut per occupational therapy. His subjective experience of blurred vision is most likely related to the cerebrovascular accident. The other possibility would be retinal involvement due to the didanosine. He will be observed for improvement. Home visit planned. Close to I in room, I with transfers and ADLs. Would benefit from one more week than currently planned. Ivelisse Attempted doc to doc case review with Dr. Solis of [facility]. Extension of stay denied. Discharge 05/28/16. Would pay for SNF if not ready to go home. Subjective: No complaints or acute events. Going to dinner with and friends tonight. Denies MEJIA/vision changes. Objective: Vital Signs Temp Pulse Resp BP Pulse Ox 36.5 C 77 16 110/71 96 05/26/16 08:00 05/26/16 08:00 05/26/16 08:00 05/26/16 08:00 05/26/16 08:00 Laboratory Results 05/17/16 06:10 04/19/16 17:57 05/25/16 05/26/16 05/27/16 05:59 05:59 05:59 Intake Total 1690 2000 672 Output Total 450 300 Balance 1240 1700 672 - Pending Discharge Pending Discharge Within 24 Hours: No Pending Discharge Within 48 Hours: Yes Pending Discharge Date: 05/28/16 Pending Discharge Time: 11:00 Physical Exam - Physical Exam General Appearance: alert, no apparent distress Neck: supple Respiratory: lungs clear, normal breath sounds Cardiac/Chest: regular rate, rhythm Abdomen: non-tender, soft Skin: warm/dry Neuro/Psych: alert, normal mood/affect, oriented x 3, motor weakness (right simran , spastic), speech abnormalities (expressive aphasia, much improved since prior exam), No cognition abnormalities ICD10 Worksheet Patient Problems: Problems Problem Status Onset Aphasia due to recent cerebrovascular accident (CVA) Acute Cerebrovascular accident (CVA) due to occlusion of left middle cerebral artery Acute Hemiplegia and hemiparesis following cerebral infarction affecting right dominant side Acute Neuropathic pain Acute Headache Acute
[2016-05-26] MEDS: ATORVASTATIN CALCIUM 40 MG TAB PO SCH (21:08)
[2016-05-26] MEDS: EFAVIRENZ 600 MG TAB PO SCH (21:09)
[2016-05-27] MEDS: DIDANOSINE 400 MG PO SCH (06:04)
[2016-05-27] MEDS: LEVOTHYROXINE 125 MCG TAB PO SCH (06:05)
[2016-05-27] MEDS: ASPIRIN 325 MG TAB PO SCH (08:43)
[2016-05-27] MEDS: POLYETHYLENE GLYCOL 3350 17 GM PKT PO SCH (08:43)
[2016-05-27] MEDS: FLUoxetine 20 MG CAP PO SCH (08:43)
[2016-05-27] MEDS: ZIDOVUDINE 300 MG PO SCH ×2 (08:47→20:06)
--- NOTE | 2016-05-27 11:26 | SOAPPROG ---
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 Initial FIM 30 on 04/20/16; improved to 53 on 04/25/16; to 67 as of ; to 76 as of 05/09/16; 81 as of 05/16/16; 93 as of 05/23/16. Walked 150' SBA/ CGA with AFO. Climbed and descended 12 stairs one rail. ADLs with distant S except shower t'cj SBA/cues. Reduced LLE proprioception and motor planning deficit. Continue physical therapy and occupational therapy to optimize mobility and activities of daily living. Escitalopram started in hospital, changed on 04/18/16 to fluoxetine 20 mg p.o. q. day in keeping with the protocol of the FLAME trial, which showed improved recovery of motor function in hemiplegic strokes. * Dysphagia and expressive greater than receptive aphasia. Advanced to regular texture diet & thin liquids. Expressive aphasia is improving, able to speak brief sentences especially with structure and cueing; receptive is much improved. Continue Speech and Language Pathology. Able to swallow pills, including efavirenz capsule. * Urinary incontinence. Resolved. * Unclear etiology of the stroke. He has a teletypesetter monitor. He has followup planned with dipper operator, Dr. Barnes 05/22/16 to evaluate for any occult atrial fibrillation. He is being treated with aspirin 325 mg p.o. q. day, as well as atorvastatin as stroke preventive. Question of E-stim affecting heart monitor d /w Dr. Barnes: no affect, proceed with E-stim. * Anemia, macrocytic. Improved 04/26/16 with normal B12, folate, retics. Still markedly macrocytic, due to HIV meds? Chronic stable or resolved conditions * Human immunodeficiency virus, well controlled. Continue current medications. * Accidental needle stick: labs reviewed from 05/16/16. He is Hep C negative, and HIV viral load is undetectable. * Hypothyroidism with adequate supplementation. Continue current levothyroxine dose. * Dehydration with dry mucous membranes and erythema to the posterior hard palate and the soft palate. Resolved after IV hydration 04/22/16. Encourage adequate PO hydration. * MEJIA and increased R tongue deviation 04/20/16: head CT w/out bleed. * Cough, productive, CXR c/w bronchitis, CBC with leukocytosis and left shift. Treated with azithromycin 5 days. Cough is resolved. * Transaminase elevation. Likely due to antiretrovirals, randy efavirenz and didanosine; not likely due to zidovudine. Mild, no change in medications indicated. Hep C neg. * DVT prophylaxis. Now 6 weeks s/p CVA as of 05/21/16. Will D/C enoxaparin. * No visual field cut per occupational therapy. His subjective experience of blurred vision is most likely related to the cerebrovascular accident. The other possibility would be retinal involvement due to the didanosine. He will be observed for improvement. Home visit planned. Close to I in room, I with transfers and ADLs. Would benefit from one more week than currently planned. Ivelisse Attempted doc to doc case review with Dr. Solis of [facility]. Extension of stay denied. Discharge 05/28/16. Would pay for SNF if not ready to go home. Subjective: No events. Enjoyed night out to dinner. No complaints. Objective: Vital Signs Temp Pulse Resp BP Pulse Ox 37.1 C 81 16 115/80 95 05/27/16 08:00 05/27/16 08:00 05/27/16 08:00 05/27/16 08:00 05/27/16 08:00 Laboratory Results 05/17/16 06:10 04/19/16 17:57 05/26/16 05/27/16 05/28/16 05:59 05:59 05:59 Intake Total 1999 972 360 Output Total 300 425 Balance 1700 972 -65 - Pending Discharge Pending Discharge Within 24 Hours: No Pending Discharge Within 48 Hours: No Physical Exam - Physical Exam General Appearance: alert, no apparent distress Neck: supple Respiratory: lungs clear, normal breath sounds Cardiac/Chest: regular rate, rhythm Abdomen: non-tender, soft Skin: warm/dry Neuro/Psych: alert, normal mood/affect, oriented x 3, motor weakness (right simran ), speech abnormalities, No cognition abnormalities ICD10 Worksheet Patient Problems: Problems Problem Status Onset Aphasia due to recent cerebrovascular accident (CVA) Acute Cerebrovascular accident (CVA) due to occlusion of left middle cerebral artery Acute Hemiplegia and hemiparesis following cerebral infarction affecting right dominant side Acute Neuropathic pain Acute Headache Acute
[2016-05-27] MEDS: EFAVIRENZ 600 MG TAB PO SCH (20:06)
[2016-05-27] MEDS: ATORVASTATIN CALCIUM 40 MG TAB PO SCH (20:06)
[2016-05-28] MEDS: DIDANOSINE 400 MG PO SCH (05:06)
[2016-05-28] MEDS: LEVOTHYROXINE 25 MCG TAB PO SCH (05:06)
[2016-05-28] MEDS: LEVOTHYROXINE 150 MCG TAB PO SCH (05:06)
[2016-05-28] MEDS: POLYETHYLENE GLYCOL 3350 17 GM PKT PO SCH (08:14)
[2016-05-28] MEDS: ASPIRIN 325 MG TAB PO SCH (08:14)
[2016-05-28] MEDS: FLUoxetine 20 MG CAP PO SCH (08:14)
[2016-05-28] MEDS: ZIDOVUDINE 300 MG PO SCH ×2 (08:16→20:31)
--- NOTE | 2016-05-28 13:06 | SOAPPROG ---
SOAP Progress Note Assessment/Plan: Assessment/Plan: 45 yo M s/p large MCA CVA on 04/10/16 of unclear etiology: 05/28/2016 pt doing well overall. He is making excellent progress and needs the final equipment, training and preparation over the next few days for a safe discharge home. Plan in place for safe discharge on . Doing well and no barriers to therapy, he is participating. Educational material to be provided today regarding return to sexual activities after stroke. 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 Initial FIM 30 on 04/20/16; improved to 53 on 04/25/16; to 67 as of ; to 76 as of 05/09/16; 81 as of 05/16/16; 93 as of 05/23/16. Walked 150' SBA/ CGA with AFO. Climbed and descended 12 stairs one rail. ADLs with distant S except shower t'cj SBA/cues. Reduced LLE proprioception and motor planning deficit. Continue physical therapy and occupational therapy to optimize mobility and activities of daily living. Escitalopram started in hospital, changed on 04/18/16 to fluoxetine 20 mg p.o. q. day in keeping with the protocol of the FLAME trial, which showed improved recovery of motor function in hemiplegic strokes. * Dysphagia and expressive greater than receptive aphasia. Advanced to regular texture diet & thin liquids. Expressive aphasia is improving, able to speak brief sentences especially with structure and cueing; receptive is much improved. Continue Speech and Language Pathology. Able to swallow pills, including efavirenz capsule. * Urinary incontinence. Resolved. * Unclear etiology of the stroke. He has a manager cardiac. He has followup planned with lead assembler, Dr. Barnes 05/22/16 to evaluate for any occult atrial fibrillation. He is being treated with aspirin 325 mg p.o. q. day, as well as atorvastatin as stroke preventive. Question of E-stim affecting heart monitor d /w Dr. Barnes: no affect, proceed with E-stim. * Anemia, macrocytic. Improved 04/26/16 with normal B12, folate, retics. Still markedly macrocytic, due to HIV meds? Chronic stable or resolved conditions * Human immunodeficiency virus, well controlled. Continue current medications. * Accidental needle stick: labs reviewed from 05/16/16. He is Hep C negative, and HIV viral load is undetectable. * Hypothyroidism with adequate supplementation. Continue current levothyroxine dose. * Dehydration with dry mucous membranes and erythema to the posterior hard palate and the soft palate. Resolved after IV hydration 04/22/16. Encourage adequate PO hydration. * MEJIA and increased R tongue deviation 04/20/16: head CT w/out bleed. * Cough, productive, CXR c/w bronchitis, CBC with leukocytosis and left shift. Treated with azithromycin 5 days. Cough is resolved. * Transaminase elevation. Likely due to antiretrovirals, randy efavirenz and didanosine; not likely due to zidovudine. Mild, no change in medications indicated. Hep C neg. * DVT prophylaxis. Now 6 weeks s/p CVA as of 05/21/16. Will D/C enoxaparin. * No visual field cut per occupational therapy. His subjective experience of blurred vision is most likely related to the cerebrovascular accident. The other possibility would be retinal involvement due to the didanosine. He will be observed for improvement. Home visit planned. Close to I in room, I with transfers and ADLs. Would benefit from one more week than currently planned. Ivelisse Attempted doc to doc case review with Dr. Solis of [email or web address]. Extension of stay denied. JDO - Discharge 05/28/16 would not be safe per discussion with team. Laurie Phillips working on extension for safe discharge on (required equipment and training of caregivers not possible today). Would pay for SNF if not ready to go home. 05/06/16 11:26 05/28/16 13:03 Subjective: CC: neurological stability No acute events, working well with therapies pending DC soon. No new numbness, tingling or weakness. No concerns about medical or rehab care today. Objective: Vital Signs Temp Pulse Resp BP Pulse Ox 37.0 C 72 14 114/72 94 05/28/16 05:55 05/28/16 05:55 05/28/16 05:55 05/28/16 05:55 05/28/16 05:55 Laboratory Results 05/17/16 06:10 04/19/16 17:57 05/27/16 05/28/16 05/29/16 05:59 05:59 05:59 Intake Total 972 1380 730 Output Total 1625 Balance 972 -710 730 Physical Exam - Physical Exam General Appearance: alert, no apparent distress EENT: No scleral icterus (R), No scleral icterus (L) Respiratory: normal breath sounds, No respiratory distress, No accessory muscle use Cardiac/Chest: normal peripheral pulses, regular rate, rhythm Skin: normal color, warm/dry Extremities: No pedal edema, No swelling Neuro/Psych: alert, normal mood/affect, speech abnormalities (dense expressive aphasia, improved words, still only very short sentences. ) ICD10 Worksheet Patient Problems: Problems Problem Status Onset Aphasia due to recent cerebrovascular accident (CVA) Acute Cerebrovascular accident (CVA) due to occlusion of left middle cerebral artery Acute Hemiplegia and hemiparesis following cerebral infarction affecting right dominant side Acute Neuropathic pain Acute Headache Acute - ICD10 Problem Qualifiers (1) Neuropathic pain
--- NOTE | 2016-05-28 19:21 | SOAPPROG ---
SOAP Progress Note Assessment/Plan: Assessment: Acupuncture services were requested post-stroke by Dr. Oviedo. This patient has no movement in his R arm and is aphasic. He seems cognitively aware and is able to answer yes and no questions. I asked him to point to the part of his body that was "the most frustrating". He pointed to his R hand. There is no movement or motor control. Treatment: L side scalp acupuncture: Speech I area Speech II area x 3 Du 20-23 Auricular: Bilateral BFA for RECREATION SPECIALIST: Cingular Gyrate [place] 2 Rosas Men [place] Zero Left side: HT 9 Estrellita Well for acute stroke, reduce cerebral inflammation. PC 9 Estrellita Well for acute stroke, reduce cerebral inflammation. GASTON 11 Estrellita Well for acute stroke, reduce cerebral inflammation. LI [address] meridian, mirrors Speech I area/ST 8 (temporal). Ling Gu Relax the LB Da Stacy Relax the LB HT 8 Balance sleep and wake, relax the tongue. HT 5 Tx apashia HT 4, 7 Balance GB, relax the shoulders HT 3 He Se, Balance GB, KI HT 3-8 Balances GB and mirror Speech II area (parietal). GASTON 5 Resolve Phlegm, Balance BL meridian GASTON 9 Balance BL meridian, decrease tension in flexion and extension, base of skull/occiput ST 36 Increase Qi and blood GB 34 Empirical point to relax tendons GB 35-39 Decrease shoulder, head, and neck tension, balance GB Note: no points done on ankle or feet due to compression stockings. Patient had a visitor before the treatment had started. I asked him if he had had a lot of visitors and if he wanted them. "Yes" to the first question, "no" to the latter. Relayed this information to his nurse to discuss management of visitors with his partner. Plan: The best frequency to treat the symptoms of stroke is daily. The best window of time is three weeks to three months. I will discuss this with his providers and care givers. My recommendations is a minimum of two times per week with needles retained 45 minutes - 1 hour each time. 04/26/16 18:26 05/03/16 16:57 Assessment: Acupuncture services were requested post-stroke by Dr. Oviedo. This patient has no movement in his R arm and is aphasic. He seems cognitively aware and is able to answer yes and no questions. I asked him to point to the part of his body that was "the most frustrating". He pointed to his R hand. There is no movement or motor control. Today he was able to lift and straighten his R leg - straight leg raise, initiated from the hip. The patient had some apprehension about acupuncture as it is "new" and does not love the needles, but felt it helped and wants to continue. Treatment: L side scalp acupuncture: Speech I area Speech II area x 3 Speech III Du 22 Auricular: L BFA for RECREATION SPECIALIST: Cingular Gyrate [place] 2 Rosas Men [place] Zero Left side: LI [address] meridian, mirrors Speech I area/ST 8 (temporal). SI 3 Relax the spine and reduce any spasms in paraspinals, balance BL meridian. SJ 3 Relax the neck, balance the GB meridian, improve blood flow in lateral neck. HT 8 Balance sleep and wake, relax the tongue. HT 5 Tx apashia HT 4, 7 Balance GB, relax the shoulders ST 36 Increase Qi and blood GB 34 Empirical point to relax tendons SP [address] meridian KI 10 Balance the BL meridian Note: no points done on ankle or feet due to compression stockings. [place] were retained for forty minutes. Plan: Discussed a treatment plan with his partner, Roe. We will try to arrange acupuncture two times per week. 05/07/16 17:40 Patient is regaining strength and movement from his R hip. He has little movement in his R knee, R arm, R elbow, R forearm, and R hand. Through gesturing and yes/no questions the patient indicated he has less sensation below his R elbow and R hand than his upper arm - bicep, deltoid, and tricep. He continues to have difficulty pulling up words, but is able to speak in longer sentences when he offers information rather than asked a question. He seems to be able to comprehend what is being said or asked, but has difficulty finding the words. He did express apprehension about acupuncture (some level of needle phobia), but he would like to continue with the treatments. The treatment today has three main focuses: scalp acupuncture to improve his speech, neurological to reduce inflammation and swelling (by improving blood flow and circulation) that may contribute to any of the symptoms of the stroke, and "direct imaging" of the areas affected by the stroke: tongue, elbow, forearm , hand, and knee. Treatment: L side scalp acupuncture: Seech I area Speech II area x 2 Speech III Auricular: Bilateral BFA for RECREATION SPECIALIST: Cingular Gyrate [place] 2 Rosas Men [place] Zero Left side: LI [address] meridian, mirrors Speech I area/ST 8 (temporal). HT 8 Balance sleep and wake, relax the tongue. HT 5 Tx apashia HT 4, 7 Balance GB, relax the shoulders HT 3 x 3 lyric He Se, Balance GB, KI, image elbow and knee. HT 3-8 Balances GB and mirror Speech II area (parietal). PC 3 x 3 Balance the LR meridian. Reduce LR Wind. Image the knee and elbow. GASTON 5 Resolve Phlegm, Balance BL meridian GASTON 9 Balance BL meridian, decrease tension in flexion and extension, base of skull/occiput GASTON 10 Relax the throat, Balance the BL meridian ST 36 [address] blood [address] 35 image the elbow and knee GB 34 Empirical point to relax tendons GB 35-39 Decrease shoulder, head, and neck tension, balance GB Du Bi image the elbow and knee Note: no points done on ankle or feet due to compression stockings. Treatment chosen using the principles of Dr Carrera's Balance Method. Thirty-eight needles inserted and retained approximately forty minutes. 05/10/16 20:12 Patient is able to answer some questions with more than "yes or no". He still seems to have little to no sensation or movement in his R arm and hand. His partner relayed to me improved speech following the previous acupuncture treatment. Treatment: L side scalp acupuncture: Speech I area Speech II area x 2 Speech III Motor line Sensory line Auricular: Bilateral BFA for RECREATION SPECIALIST: Cingular Gyrate [place] 2 Rosas Men [place] Zero Left side: LI [address] meridian, mirrors Speech I area/ST 8 (temporal). SI 3 SI 4 SJ 4 HT 5 Tx apashia HT 3 x 3 lyric He Se, Balance GB, KI, image elbow and knee. HT 3-7 Balances GB and mirror Speech II area (parietal). GASTON 5 Resolve Phlegm, Balance BL meridian ST 36 Increase Qi and blood GB 34 Empirical point to relax tendons GB 35-41 Decrease shoulder, head, and neck tension, balance GB. Image parietal area. BL 65 (deep insertion), relax the spine, improve flexion and extension. Alma Rosa point. Improve ROM on BL meridian/paraspinal muscles. GB 40, 41 Relax the occiput, improve bloodflow. KI 3 Balance BL meridian. Improve flexion, extension, and side-bending in cervical spine. LR 3 Move the blood. Improve circulation. Treatment chosen using the principles of Dr Carrera's Balance Method. 05/13/16 17:21 With the direction of Miles's physical therapist, Oleksandr, we will do local acupuncture points on the affected (R) side to encourage dorsiflexion of his foot. Miles continues to improve his vocabulary and was able to verbalize Oleksandr' s name today. He also transferred from his wheelchair to his bed on his own. Treatment: L side scalp acupuncture: Speech I area Speech II area x 3 Speech II Motor Line for Scalp Acupuncture Sensory Line for Scalp Acupuncture Auricular: Bilateral BFA for RECREATION SPECIALIST: Cingular Gyrate [place] 2 Rosas Men [place] Zero Left side: HT 8 Balance sleep and wake, relax the tongue. HT 5 Tx apashia HT 4, 7 Balance GB, relax the shoulders HT 3 He Se, Balance GB, KI HT 3-8 Balances GB and mirror Speech II area (parietal). GASTON 5 Resolve Phlegm, Balance BL meridian GASTON 9 Balance BL meridian, decrease tension in flexion and extension, base of skull/occiput GASTON 10 Estrellita [place] point, [place] point, relax the throat. LR 3, 7, 8 KI 2, 3, 7 SP 3, 4, 6, 9 x 2 Right Side: LI [address] meridian, mirrors Speech I area/ST 8 (temporal). Ling Gu Relax the LB Da Stacy Relax the LB SI 3 (deep) master point of spine, improve flexion and extension, balance the BL meridian LR 3 x 2 a SP 3, 4 Lyric on bottom of foot ST 36 Increase Qi and blood GB 34 Empirical point to relax tendons GB 35-39 Decrease shoulder, head, and neck tension, balance GB Local muscles stimulated and fasciculation achieved on anterior tibialis and peroneals (ST 36 -37 and GB 34-35). VMO was stimulated without result. Scalp acupuncture needles retained for 1 h 20 minutes. [place] retained on body for 40 minutes. 05/16/16 18:44 Feedback from Miles's partner indicates improved movement in R anterior tibialis and peroneal muscles. Still no movement in R arm or hand. Speech continues to improve with a larger vocabulary and it seems easier for him to pull up words when asked a question. Treatment: L side scalp acupuncture: Speech I area Speech II area x 3 Speech II Motor Line for Scalp Acupuncture Sensory Line for Scalp Acupuncture Auricular: Bilateral BFA for RECREATION SPECIALIST: Cingular Gyrate [place] 2 Rosas Men [place] Zero Left side: HT 7 Balance GB, relax the shoulders HT 3 He Se, Balance GB, KI LR 3, 7, 8 KI 3, 10 SP 5, 9 x 2 Right Side: LI [address] meridian, mirrors Speech I area/ST 8 (temporal). Ling Gu Relax the LB Da Stacy Relax the LB SI 3 (deep) master point of spine, improve flexion and extension, balance the BL meridian LR 3 x 2 a SP 3, 4 [place] sandra - used as local points on hand (versus for its benefit on the hip) ST 36 Increase Qi and blood GB 34 Empirical point to relax tendons GB 35-39 Decrease shoulder, head, and neck tension, balance GB Local muscles stimulated with electric stimulation anterior tibialis and peroneals (ST 36 -41, then switched ST 36 - LR 3; and GB 34-39, then switched to GB 34 to BL 65). [place] sandra to SI 3; LI 4 to LI 11. Electric stimulation on milliamps turned up as high as patient could tolerate. He has some sensation along the anterior tibialis and peroneals, and no sensation in his arm, however he was aware of his hand spasming with the high stimulation, I am unclear if he felt it, or just saw it. Scalp acupuncture needles retained for 1 h 20 minutes. [place] retained on body for 40 minutes. 05/21/16 17:57 Feedback from Miles's partner indicates improved movement in R anterior tibialis and peroneal muscles, he is getting some movement in his knee with walking. Still no movement in R arm or hand. Speech continues to improve with a larger vocabulary and it seems easier for him to pull up words when asked questions. Patient indicated some fears about going home from the rehabilitation center. With the focused treatments he feels he is making improvements and wants it to continue. Treatment: L side scalp acupuncture: Speech I area Speech II area x 3 Speech II Motor Line for Scalp Acupuncture Sensory Line for Scalp Acupuncture DU 20-23 Auricular: Bilateral BFA for RECREATION SPECIALIST: Cingular Gyrate [place] 2 Rosas Men [place] Zero Left side: HT 3- 7 Balance GB, relax the shoulders HT 3 He Se, Balance GB, KI LR 3, 7, 8 KI 3, 10 SP 5, 9 x 2 Right Side: LI [address] meridian, mirrors Speech I area/ST 8 (temporal). Marni Jesus Relax the LB Da Stacy Relax the LB SI 3 (deep) master point of spine, improve flexion and extension, balance the BL meridian LR 3 SP [address] Increase Qi and blood GB 34 Empirical point to relax tendons GB 35-39 Decrease shoulder, head, and neck tension, balance GB Local muscles stimulated with electric stimulation anterior tibialis and peroneals (ST 36 - SP 3; and GB 34-39). Alma Rosa point between 2nd and 3rd metacarpal - SI 3; LI 4 - LI 11. Electric stimulation on milliamps turned up as high as patient could tolerate. He has some sensation along the anterior tibialis and peroneals. With e-stim, he had contraction and foot movement. Without e-stim and palpation only, he said he had no sensation in his arm, however he was aware of the high stimulation, and asked me to turn it down. He did this by indicating, "ow". 05/26/16 17:11 This was Miles's longest period without acupuncture since beginning treatment. When asked what he noticed most about not having it, he did not know, but is aware of easier language and thought when he has treatment. Treatment: L side scalp acupuncture: Speech I area Speech II area x 3 Speech II Motor Line for Scalp Acupuncture Sensory Line for Scalp Acupuncture DU 20-23 Auricular: Bilateral BFA for RECREATION SPECIALIST: Cingular Gyrate [place] 2 [facility] [place] Zero Left side: HT 3- 7 Balance GB, relax the shoulders HT 3 He Se, Balance GB, KI GASTON 5 LR 3, 7, 8 KI 3, 4, 7, 10 SP 5, 9 x 2 Right Side: LI [address] meridian, mirrors Speech I area/ST 8 (temporal). Marni Jesus Relax the LB Da Stacy Relax the LB SI 3 (deep) master point of spine, improve flexion and extension, balance the BL meridian [place] Sandra LR [address] Increase Qi and blood GB 34 Empirical point to relax tendons GB 35-39 Decrease shoulder, head, and neck tension, balance GB Local muscles stimulated with electric stimulation anterior tibialis and peroneals (ST 36 - LR 3; and GB 34-BL 65). Electric stimulation on R hand [place] Sandra, lateral to medial, and LI 4 - SI 3. Electric stimulation on milliamps turned up as high as patient could tolerate. He has some sensation along the anterior tibialis and peroneals. With e-stim, he had contraction and foot movement. Without e-stim and palpation only, he said he had no sensation in his arm or hand, however he was aware of the high stimulation in his hand, and asked me to turn it down. He did this by indicating, "ow". 05/28/16 19:16 Miles was in good spirits today. He was able to use some proper nouns in sentences and was able to use two and three syllable words. Treatment: L side scalp acupuncture: Speech I area Speech II area x 3 Speech II Motor Line for Scalp Acupuncture Sensory Line for Scalp Acupuncture DU 20-23 Auricular: Bilateral BFA for RECREATION SPECIALIST: Cingular Gyrate [place] 2 Rosas Men [place] Zero Left side: HT 3- 7 Balance GB, relax the shoulders HT 3 He Se, Balance GB, KI GASTON 5 ST 36 GB 34 BL 65 Right Side: LI [address] meridian, mirrors Speech I area/ST 8 (temporal). Ling Gu Relax the LB Da Stacy Relax the LB SI 3 (deep) master point of spine, improve flexion and extension, balance the BL meridian SI 4 [place] Sandra LR [address] Increase Qi and blood GB 34 Empirical point to relax tendons GB 35-39 Decrease shoulder, head, and neck tension, balance GB Local muscles stimulated with electric stimulation anterior tibialis and peroneals (ST 36 - SP 3; and GB 34-LR 3). Electric stimulation on R hand [place] Sandra, lateral to medial, and LI 4 - SI 4. Electric stimulation on milliamps turned up as high as patient could tolerate. He has some sensation along the anterior tibialis and peroneals. With e-stim, he had contraction and foot movement. During the treatment, his anterior tibialis and foot started to move. Miles asked for the e-stim to be turned down. He also had sensation between his fingers. After thirty minutes, he asked for the treatment to end as he was feeling strong sensation and stimulus in both his R hand and leg. After the needles were removed, he was very aware of sensation and what seems like feeling in his R hand. Objective: Vital Signs Temp Pulse Resp BP Pulse Ox 37.0 C 72 14 114/72 94 05/28/16 05:55 05/28/16 05:55 05/28/16 05:55 05/28/16 05:55 05/28/16 05:55 Laboratory Results 05/17/16 06:10 04/19/16 17:57 05/27/16 05/28/16 05/29/16 05:59 05:59 05:59 Intake Total 972 1380 930 Output Total 1625 Balance 972 -245 930 ICD10 Worksheet Patient Problems: Problems Problem Status Onset Aphasia due to recent cerebrovascular accident (CVA) Acute Cerebrovascular accident (CVA) due to occlusion of left middle cerebral artery Acute Hemiplegia and hemiparesis following cerebral infarction affecting right dominant side Acute Neuropathic pain Acute Headache Acute
[2016-05-28] MEDS: ATORVASTATIN CALCIUM 40 MG TAB PO SCH (20:29)
[2016-05-28] MEDS: EFAVIRENZ 600 MG TAB PO SCH (20:34)
[2016-05-29] MEDS: DIDANOSINE 400 MG PO SCH (06:10)
[2016-05-29] MEDS: LEVOTHYROXINE 125 MCG TAB PO SCH (06:10)
[2016-05-29] MEDS: ASPIRIN 325 MG TAB PO SCH (08:26)
[2016-05-29] MEDS: FLUoxetine 20 MG CAP PO SCH (08:26)
[2016-05-29] MEDS: POLYETHYLENE GLYCOL 3350 17 GM PKT PO SCH (08:26)
[2016-05-29] MEDS: ZIDOVUDINE 300 MG PO SCH ×2 (08:28→21:01)
--- NOTE | 2016-05-29 18:07 | SOAPPROG ---
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 Initial FIM 30 on 04/20/16; improved to 53 on 04/25/16; to 67 as of ; to 76 as of 05/09/16; 81 as of 05/16/16; 93 as of 05/23/16. Walked 150' SBA/ CGA with AFO. Climbed and descended 12 stairs one rail. ADLs with distant S except shower t'cj SBA/cues. Reduced LLE proprioception and motor planning deficit. Continue physical therapy and occupational therapy to optimize mobility and activities of daily living. Escitalopram started in hospital, changed on 04/18/16 to fluoxetine 20 mg p.o. q. day in keeping with the protocol of the FLAME trial, which showed improved recovery of motor function in hemiplegic strokes. * Dysphagia and expressive greater than receptive aphasia. Advanced to regular texture diet & thin liquids. Expressive aphasia is improving, able to speak brief sentences especially with structure and cueing; receptive is much improved. Continue Speech and Language Pathology. Able to swallow pills, including efavirenz capsule. * Urinary incontinence. Resolved. * Unclear etiology of the stroke. He has a epic willow specialist. He has followup planned with assistant professor of geography, Dr. Barnes 05/22/16 to evaluate for any occult atrial fibrillation. He is being treated with aspirin 325 mg p.o. q. day, as well as atorvastatin as stroke preventive. Question of E-stim affecting heart monitor d /w Dr. Barnes: no affect, proceed with E-stim. * Anemia, macrocytic. Improved 04/26/16 with normal B12, folate, retics. Still markedly macrocytic, due to HIV meds? * Accidental needle stick: labs reviewed from 05/16/16. He is Hep C negative, and HIV viral load is undetectable. Chronic stable or resolved conditions * Human immunodeficiency virus, well controlled. Continue current medications. * Hypothyroidism with adequate supplementation. Continue current levothyroxine dose. * Dehydration with dry mucous membranes and erythema to the posterior hard palate and the soft palate. Resolved after IV hydration 04/22/16. Encourage adequate PO hydration. * MEJIA and increased R tongue deviation 04/20/16: head CT w/out bleed. * Cough, productive, CXR c/w bronchitis, CBC with leukocytosis and left shift. Treated with azithromycin 5 days. Cough is resolved. * Transaminase elevation. Likely due to antiretrovirals, randy efavirenz and didanosine; not likely due to zidovudine. Mild, no change in medications indicated. Hep C neg. * DVT prophylaxis. Now 6 weeks s/p CVA as of 05/21/16. Will D/C enoxaparin. * No visual field cut per occupational therapy. His subjective experience of blurred vision is most likely related to the cerebrovascular accident. The other possibility would be retinal involvement due to the didanosine. He will be observed for improvement. 2nd level of appeal in process re discharge date. Still planed for 05/31/16. 05/29/16 18:06 Subjective: No complaints. Looking forward to going home later this week. Has new custom AFO. Objective: Vital Signs Temp Pulse Resp BP Pulse Ox 36.8 C 68 18 110/64 95 05/29/16 06:15 05/29/16 06:15 05/29/16 06:15 05/29/16 06:15 05/29/16 06:15 Laboratory Results 05/17/16 06:10 04/19/16 17:57 05/28/16 05/29/16 05/30/16 05:59 05:59 05:59 Intake Total 1380 1280 980 Output Total 1625 800 Balance -245 480 980 Physical Exam - Physical Exam General Appearance: WD/WN, alert, no apparent distress Respiratory: No respiratory distress, No accessory muscle use Skin: normal color, warm/dry Neuro/Psych: alert, normal mood/affect, oriented x 3, abnormal gait (Ambulating with PT CGA trekking pole in L hand.), motor weakness (RUE flaccid paralysis) ICD10 Worksheet Patient Problems: Problems Problem Status Onset Aphasia due to recent cerebrovascular accident (CVA) Acute Cerebrovascular accident (CVA) due to occlusion of left middle cerebral artery Acute Hemiplegia and hemiparesis following cerebral infarction affecting right dominant side Acute Neuropathic pain Acute Headache Acute
[2016-05-29] MEDS: ATORVASTATIN CALCIUM 40 MG TAB PO SCH (21:00)
[2016-05-29] MEDS: EFAVIRENZ 600 MG TAB PO SCH (21:02)
[2016-05-30] MEDS: DIDANOSINE 400 MG PO SCH (06:10)
[2016-05-30] MEDS: LEVOTHYROXINE 25 MCG TAB PO SCH (06:10)
[2016-05-30] MEDS: LEVOTHYROXINE 150 MCG TAB PO SCH (06:10)
[2016-05-30] MEDS: POLYETHYLENE GLYCOL 3350 17 GM PKT PO SCH (08:51)
[2016-05-30] MEDS: ZIDOVUDINE 300 MG PO SCH ×2 (08:51→21:14)
[2016-05-30] MEDS: FLUoxetine 20 MG CAP PO SCH (08:51)
--- NOTE | 2016-05-30 08:51 | SOAPPROG ---
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 Initial FIM 30 on 04/20/16; improved to 53 on 04/25/16; to 67 as of ; to 76 as of 05/09/16; 81 as of 05/16/16; 95 as of 05/23/16; 100 as of 05/30/16. Walked >150' SBA/CGA with AFO. Climbed and descended 12 stairs one rail CGA. ADLs with distant S except shower t'cj SBA/cues. Reduced LLE proprioception and motor planning deficit. Continue physical therapy and occupational therapy to optimize mobility and activities of daily living. Escitalopram started in hospital, changed on 04/18/16 to fluoxetine 20 mg p.o. q. day in keeping with the protocol of the FLAME trial, which showed improved recovery of motor function in hemiplegic strokes. * Dysphagia and expressive greater than receptive aphasia. Advanced to regular texture diet & thin liquids. Expressive aphasia is improving, able to speak brief sentences especially with structure and cueing; receptive is much improved. Continue Speech and Language Pathology. Able to swallow pills, including efavirenz capsule. * Urinary incontinence. Resolved. * Unclear etiology of the stroke. He has a comptometrist. Had followup with instructional aide, Dr. Barnes 05/22/16: no occult atrial fibrillation. He is being treated with aspirin 325 mg p.o. q. day, as well as atorvastatin as stroke preventive. * Anemia, macrocytic. Improved 04/26/16 with normal B12, folate, retics. Still markedly macrocytic, due to HIV meds? * Accidental needle stick: labs reviewed from 05/16/16. He is Hep C negative, and HIV viral load is undetectable. Chronic stable or resolved conditions * Human immunodeficiency virus, well controlled. Continue current medications. * Hypothyroidism with adequate supplementation. Continue current levothyroxine dose. * Dehydration with dry mucous membranes and erythema to the posterior hard palate and the soft palate. Resolved after IV hydration 04/22/16. Encourage adequate PO hydration. * MEJIA and increased R tongue deviation 04/20/16: head CT w/out bleed. * Cough, productive, CXR c/w bronchitis, CBC with leukocytosis and left shift. Treated with azithromycin 5 days. Cough is resolved. * Transaminase elevation. Likely due to antiretrovirals, randy efavirenz and didanosine; not likely due to zidovudine. Mild, no change in medications indicated. Hep C neg. * DVT prophylaxis. 6 weeks s/p CVA as of 05/21/16. Will D/C enoxaparin. * No visual field cut per occupational therapy. His subjective experience of blurred vision is most likely related to the cerebrovascular accident. The other possibility would be retinal involvement due to the didanosine. He will be observed for improvement. 2nd level of appeal in process re discharge date. Attended staffing, 15 min. D/W case mgmt, nursing, PT, OT, FINANCE TEACHER, bartender server. Attended family meeting, 30 min; and mother present. Discharge tomorrow 05/31/16. Home PT, OT, FINANCE TEACHER. 05/30/16 12:36 Subjective: No complaints. Happy to be going home tomorrow. No f/c, cough/dyspnea. Objective: Vital Signs Temp Pulse Resp BP Pulse Ox 36.7 C 72 16 110/71 94 05/30/16 07:43 05/30/16 07:43 05/30/16 07:43 05/30/16 07:43 05/30/16 07:43 Laboratory Results 05/17/16 06:10 04/19/16 17:57 05/29/16 05/30/16 05/31/16 05:59 05:59 05:59 Intake Total 1280 1220 Output Total 800 350 Balance 480 870 - Time Spent With Patient Time Spent With Patient: Greater than 35 minutes floor time today, including more than 50% of time in coordination of care during staffing meeting, and counseling patient and family during family meeting. Physical Exam - Physical Exam General Appearance: WD/WN, alert, no apparent distress Respiratory: normal breath sounds, No crackles, No rhonchi, No wheezing Cardiac/Chest: regular rate, rhythm, No edema Skin: normal color, warm/dry Neuro/Psych: alert, normal mood/affect, oriented x 3, motor weakness (RUE flaccid paralysis) ICD10 Worksheet Patient Problems: Problems Problem Status Onset Aphasia due to recent cerebrovascular accident (CVA) Acute Cerebrovascular accident (CVA) due to occlusion of left middle cerebral artery Acute Hemiplegia and hemiparesis following cerebral infarction affecting right dominant side Acute Neuropathic pain Acute Headache Acute
[2016-05-30] MEDS: ASPIRIN 325 MG TAB PO SCH (08:52)
[2016-05-30] MEDS: EFAVIRENZ 600 MG TAB PO SCH (21:14)
[2016-05-30] MEDS: ATORVASTATIN CALCIUM 40 MG TAB PO SCH (21:14)
[2016-05-31] MEDS: DIDANOSINE 400 MG PO SCH (06:17)
[2016-05-31] MEDS: LEVOTHYROXINE 125 MCG TAB PO SCH (06:17)
[2016-05-31 06:42] VITALS: BP 121/82; PULSE 82; RESP 15; TEMP 97.8; O2SAT 94
[2016-05-31] MEDS: FLUoxetine 20 MG CAP PO SCH (09:19)
[2016-05-31] MEDS: ZIDOVUDINE 300 MG PO SCH (09:19)
[2016-05-31] MEDS: ASPIRIN 325 MG TAB PO SCH (09:19)
[2016-05-31] MEDS: POLYETHYLENE GLYCOL 3350 17 GM PKT PO SCH (09:20)
--- NOTE | 2016-05-31 16:08 | PDOREHIP ---
Admission [facility] - Admission - 3 Day Assessment Period Admission Date/Day 1: 04/18/16 Day 2: 04/19/16 Day 3: 04/20/16 Discharge [facility] - Discharge - 3 Day Assessment Period 2 Days Prior to Anticipated Discharge Date: 05/29/16 1 Day Prior to Anticipated Discharge Date: 05/30/16 Anticipated Discharge Date: 05/31/16 - Discharge Skin Conditions Unhealed Pressure Ulcer (1 or more/Stage 1 or >)-Discharge: 0. No
--- NOTE | 2016-06-12 03:04 | GDS ---
[f rep st] DISCHARGE SUMMARY ADMISSION DIAGNOSIS: Left hemispheric cerebrovascular accident. DISCHARGE DIAGNOSIS: Left hemispheric cerebrovascular accident. CONSULTATIONS: Medical acupuncture. PROCEDURES: He received acupuncture. COMPLICATIONS: There were none. HISTORY/HOSPITAL COURSE: The patient was admitted from [facility]. He had a left middle cerebral artery cerebrovascular accident with aphasia and right hemiparesis. Evaluation for the etiology of the stroke with both transthoracic and transesophageal echocardiogram, as well as cardiac monitoring and neurovascular imaging, as well as hypercoagulable workup were negative for any specific etiology of the stroke. An implantable teletypesetter monitor was placed before his discharge and when it was rechecked a month later , there were no dysrhythmias noted. He had steady improvement in his function. His initial functional independence measure on 04/30/2016 was 30, which is consistent with needing assistance with all aspects of mobility and ADL's at a low level of assisted care. By the week of discharge, his FIM had improved to 100 as of 05/30/2016, which is consistent with independent living. He had walked greater than 150 feet with standby assist or contact guard assist using an ankle-foot orthosis. He climbed and descended 12 stairs using 1 rail with contact guard assist. He could accomplish his activities of daily living with distant supervision except for the shower, which required standby assist and cues. He had improvement in his expressive aphasia. He was eventually able to speak brief sentences especially with structure and cuing. His receptive aphasia was almost completely resolved. There was urinary incontinence initially in his stay, but this resolved. He was initially dehydrated, and this responded to IV hydration on 04/22/2016. Subsequently, he was able to maintain his hydration. He had a likely bronchitis with a cough when he was 1st admitted. This resolved after treatment with azithromycin. He received 6 weeks of Enoxaparin for deep venous thrombosis prophylaxis. Chronic conditions of HIV and hypothyroidism were well controlled with his admission medications. LABORATORY DATA: During his stay, his CBC was overall within normal limits on 05/17/2016. He had a high MCV at 107.3, this has been stable through his stay likely due to his HIV medications. Platelet count was normal. Serum chemistry on 04/19/2016 had elevations of AST and ALT at 129 and 111, respectively. B12 and folate were within normal limits. This was also likely due to his HIV medications. Urinalysis was normal. It was ordered in the evaluation of his urinary incontinence, and his HIV labs were drawn. HIV RNA was undetectable. Hepatitis C was negative. These were drawn due to an accidental needlestick on the part of the cafeteria table attendant. DISCHARGE PLAN: Condition upon discharge is good. ACTIVITY: Ad rogelio though he still requires some supervision especially with stair climbing. DIET: Regular. DATE OF NEXT APPOINTMENT: He is to follow up with his primary care provider, Fazal Alves on 06/06/2016. He has a followup scheduled with neurologist, Dr. Mervat Garcia on 07/12/2016. He has a followup with administrative executive, Dr. Jose Barnes, in approximately a year. DISCHARGE MEDICATIONS: 1. Acetaminophen 650 mg p.o. q.6 hours p.r.n. 2. Fluoxetine 20 mg p.o. q. day. 3. Polyethylene glycol 17 g p.o. q. day. 4. Aspirin 325 mg p.o. q. day. 5. Atorvastatin 40 mg p.o. q.h.s. 6. Didanosine 400 mg p.o. q. day. 7. Efavirenz 600 mg p.o. q.h.s. 8. Levothyroxine 125 mcg alternating with 175 mcg p.o. on alternate days. 9. Zidovudine 300 mg p.o. b.i.d. ISSUES TO BE ADDRESSED AT FOLLOWUP: 1. Functional status regarding mobility and activities of daily living. He will continue with physical and occupational therapy at home and can have followup on these issues with his primary care provider. 2. Expressive aphasia. He will continue speech and language pathology, and again he can follow up with his primary care provider. 3. Cerebrovascular accident with secondary prophylaxis to be managed by his primary care provider, and he has followup scheduled with Mervat Garcia, Neurology. 4. Human immunodeficiency virus. I am not sure who is managing this condition. He can be guided by his primary care provider. 5. Unclear etiology of stroke with no arrhythmia detected on 1 month cardiac monitoring. He can follow up with Dr. Barnes, cardiology in another year. Copy requested to: MD Dr. Mervat Elliott /[id number]/MODL MTDD
== END 2016-05-31 16:25 | disposition home health service (06) | DRG 57 ==
LOC: BREH 04-18 15:23
PROVIDERS: ADMIT Internal Medicine; ATTEND Internal Medicine
PROC: F08Z7ZZ Vocational Activities and Functional Community or Work Reintegration Skills Treatment (ICD-10-PCS; principal; 2016-04-18)
PROC: F07M3ZZ Motor Function Treatment of Musculoskeletal System - Whole Body (ICD-10-PCS; principal; 2016-04-18)
PROC: F0636ZZ Communicative/Cognitive Integration Skills Treatment of Neurological System - Whole Body (ICD-10-PCS; principal; 2016-04-18)
DX: I69.351 Hemiplegia and hemiparesis following cerebral infarction affecting right dominant side (principal); I69.320 Aphasia following cerebral infarction; I69.391 Dysphagia following cerebral infarction; E03.9 Hypothyroidism, unspecified; E86.0 Dehydration; R32 Unspecified urinary incontinence; D53.9 Nutritional anemia, unspecified; Z21 Asymptomatic human immunodeficiency virus [HIV] infection status
CPT/HCPCS: 82607-90; 87536-90; 92507-GN; 92522-GN; 92526-GN; 92610-GN; 97110-GO; 97110-GP; 97112-GO; 97112-GP; 97116-GP; 97162-GP; 97166-GO; 97530-GO; 97530-GP; 97532-GO; 97535-GO; 97542-GP; 99366-GO; G0472; J1650

== ENCOUNTER 2016-04-20 09:14 | Emergency (ER) | payer BC ==
--- NOTE | 2016-04-20 09:28 | EDPHY ---
H & P Time Seen by Provider: 04/20/16 09:16 HPI/ROS: CHIEF COMPLAINT: Severe headache, tongue deviation HISTORY OF PRESENT ILLNESS: 45-year-old male with a history of recent MCA stroke presents with severe headache and tongue deviation. On 04/10/2016 he sustained a left MCA stroke. He was outside the window for thrombolytics and the etiology for the CVA was not determined. [facility] 04[facility]18[facility]2016 with right-sided hemiparesis. He also has a an implantable quality assurance monitor final in place. This morning at 8:00 a.m., he reported a severe headache and the nurses noticed new tongue deviation. Otherwise his neurologic symptoms are unchanged. He continues to have hemiparesis and expressive aphasia. He was sent to the emergency department for further evaluation. Patient denies any other new symptoms. REVIEW OF SYSTEMS: Constitutional: No fever, no chills Eyes: No visual changes ENT: No sore throat Respiratory: No cough, no shortness of breath Cardiac: No chest pain Gastrointestinal: No nausea, no vomiting, no abdominal pain Genitourinary: no dysuria Musculoskeletal: No leg pain or swelling Skin: No rash Neurological: right simran paresis Psychiatric: No depression Past Medical/Surgical History: CVA HIV positive Social History: In [facility] Smoking Status: Never smoked Physical Exam: General Appearance: Alert, slurred speech Eyes: Pupils equal and round, no conjunctival pallor ENT, Mouth: Mucous membranes moist, tongue is slightly deviated to the right Neck: Normal inspection Respiratory: Lungs are clear to auscultation Cardiovascular: Regular rate and rhythm Gastrointestinal: Abdomen is soft and nontender Neurological: alert and oriented, slurred speech, hemiparesis Skin: Warm and dry, no rash Extremities: Nontender, no pedal edema Psychiatric: flat affect Constitutional: Initial Vital Signs Temperature (C) 36.5 C 04/20/16 09:14 Heart Rate 60 04/20/16 09:14 Respiratory Rate 12 04/20/16 09:14 Blood Pressure 103/79 04/20/16 09:14 O2 Sat (%) 100 04/20/16 09:14 O2 Delivery Mode Room Air O2 (L/minute) 2 Allergies/Adverse Reactions: grapefruit juice Adverse Reaction (Uncoded 04/18/16 17:01) Home Medications: Medication Instructions Recorded Aspirin [Aspirin 325 mg (*)] 325 mg PO DAILY 04/18/16 Atorvastatin Calcium [Lipitor 40 40 mg PO HS 04/18/16 mg (*)] Didanosine 400 mg PO DAILYAC 04/18/16 Efavirenz [Sustiva 600MG (RX)] 600 mg PO HS 04/18/16 Escitalopram Oxalate [Lexapro] 10 mg PO DAILY 04/18/16 Levothyroxine [Synthroid 175 mcg 175 mcg PO DAILY06 04/18/16 (*)] ZIDOVUDINE 300 mg PO BID 04/18/16 Medical Decision Making - Diagnostics EKG Interpretation: EKG interpreted by me reveals sinus rhythm, rate 56, no ST or T segment changes. Imaging: CT scan of the brain read by Dr. Leo reveals no evidence of hemorrhage. The previous MCA CVA is noted, but appears better. ED Course/Re-evaluation: CT scan of the brain discussed with the patient. Fortunately there is no evidence of hemorrhage. His family thinks that he is dehydrated and that this is the cause of the headache. There is no evidence of acute CVA. IV normal saline 1 L given. He feels better after the IV fluids, but the headache has not completely resolved. Ibuprofen 600 mg orally given. 11:30 a.m.-discussed with Dr. Oviedo, we will send the patient back to rehab. Differential Diagnosis: Headache including but not limited to subarachnoid hemorrhage, migraine headache , tension headache and infectious causes such as meningitis, pharyngitis and sinusitis. - Data Points Laboratory Results: Laboratory Results 04/20/16 11:34 04/20/16 11:34 Medications Given: Discontinued Medications Sodium Chloride (Ns) 1,000 mls @ 0 mls/hr IV ONCE ONE PRN Reason: Wide Open Stop: 04/20/16 10:13 Last Admin: 04/20/16 10:10 Dose: 1,000 mls Ibuprofen (Motrin Oral Solution) 600 mg PO EDNOW ONE Stop: 04/20/16 11:12 Last Admin: 04/20/16 11:30 Dose: 600 mg Departure - Departure Disposition: Home, Routine, Self-Care Clinical Impression: Headache Qualifiers: Headache type: tension-type Headache chronicity pattern: acute headache Intractability: not intractable Qualified Code(s): G44.209 - Tension-type headache, unspecified, not intractable Condition: Good Referrals: Patient,NotPresent [Unknown] - As per Instructions
[2016-04-20 09:29] VITALS: TEMP 97.7
--- NOTE | 2016-04-20 09:39 | CPEKG ---
Heart Rate: 56 RR Interval: 1071 P-R Interval: 148 QRSD Interval: 82 QT Interval: 444 QTC Interval: 429 P [place]: 12 QRS [place]: 43 T Wave [place]: 69 EKG Severity - OTHERWISE NORMAL ECG - EKG Impression: SINUS RHYTHM EKG Impression: MINIMAL ST ELEVATION, ANTERIOR LEADS Electronically Signed By: Talia Griffin 20-Apr-2016 13:19:15
[2016-04-20] MEDS ORDERED: IOPAMIDOL (ISOVUE-370) 150 ML BTL IV ONE (09:51)
[2016-04-20] MEDS ORDERED: NS 1,000 ML IV ONE (10:12)
[2016-04-20] MEDS ORDERED: IBUPROFEN SUSP 100 MG/5 ML UDCUP PO ONE (11:11)
[2016-04-20 11:56] LABS: ANION GAP 10 mEq/L (8-16); CALCIUM 8.4 mg/dL (8.5-10.4); CARBON DIOXIDE 24 mEq/l (22-31); CHLORIDE 105 mEq/L (97-110); CREATININE 0.6 mg/dL (0.7-1.3); GLOMERULAR FILTRATION RATE > 60; GLUCOSE 94 mg/dL (70-100); POTASSIUM 3.8 mEq/L (3.5-5.2); SODIUM 139 mEq/L (134-144)
[2016-04-20 12:08] LABS: TROPONIN I < 0.012 ng/mL (0-0.034)
[2016-04-20 12:31] VITALS: BP 110/72; PULSE 59; RESP 14; O2SAT 97
[2016-04-20 13:41] LABS: % IMMATURE GRANULYOCYTES 0.6 % (0.0-1.1); ABSOLUTE IMMATURE GRANULOCYTES 0.06 10^3/uL (0.00-0.10); ADD DIFF? NO; ADD MORPH? YES; ADD SCAN? NO; ATYPICAL LYMPHOCYTE FLAG 40 (0-99); FRAGMENT RBC FLAG 0 (0-99); HEMATOCRIT 37.5 % (40.0-51.0); LEFT SHIFT FLG 0 (0-99); LIPEMIA HEMOLYSIS FLAG 100 (0-99); MEAN CELL VOLUME 102.5 fL (81.5-99.8); MEAN PLATELET VOLUME 10.3 fL (8.7-11.7); PLATELET CLUMPS FLAG 10 (0-99); PLATELET COUNT 242 10^3/uL (150-400); RED BLOOD CELL COUNT 3.66 10^6/uL (4.40-6.38); RED CELL DISTRIBUTION WIDTH 12.9 % (11.5-15.2)
[2016-04-20 13:55] LABS: MACROCYTES 1+; PLATELET ESTIMATE ADEQUATE (ADEQ)
== END 2016-04-20 13:51 | disposition home or self-care (01) ==
LOC: EDUNIT#
DX: G44.209 Tension-type headache, unspecified, not intractable (principal); B20 Human immunodeficiency virus [HIV] disease; Z79.82 Long term (current) use of aspirin; Z86.73 Personal history of transient ischemic attack (TIA), and cerebral infarction without residual deficits
CPT/HCPCS: 82947-QW; Q9967

== ENCOUNTER 2017-07-20 12:39 | Inpatient (IN) | payer BC ==
[2017-07-20] MEDS ORDERED: SENNOSIDES/DOCUSATE SODIUM TAB PO PRN (13:30)
--- NOTE | 2017-07-20 13:55 | PDOREHIP ---
Admission [facility] - Admission - 3 Day Assessment Period Admission Date/Day 1: 07/20/17 Day 2: 07/21/17 Day 3: 07/22/17 - Active Diagnoses Comorbidities and Co-existing Conditions at Admission: 52533. None of the Above - Skin Conditions Unhealed Pressure Ulcer (1 or more/Stage 1 or >)-Admission: 0. No
[2017-07-20] MEDS ORDERED: WARFARIN SODIUM 5 MG TAB PO SCH (16:00)
--- NOTE | 2017-07-20 16:52 | PDGENHP ---
History and Physical History and Physical: Post admission physician evaluation and rehabilitation treatment plan Date Admit: 07/20/2017 Date and Time Eval: 07/20/2017, approximately 1:00 p.m. Referring Facility: [facility] MD: [facility] Consultants included Dr. Cintron from Neurology and Dr. 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 After his last rehabilitation course, he was making slow but steady gains working in outpatient therapy with PT, OT, and speech therapy at [facility] and the [facility] and was planning for intensive speech therapy in the coming weeks. Recovery of his mobility function went well and he was ambulating with a single-point cane/walking stick in the community independently. His recovery of his arm was slower and he was just being able to bend his arm to his face. On 07/09/2017 he suffered a seizure, and was taken to the hospital for status epilepticus. He was treated in the hospital and intubated. Started on Keppra and Ativan, had recurrent seizures. He was treated for community-acquired pneumonia with cefepime, noted to have a negative lumbar puncture, and EEG was consistent with severe slowing but no further seizure activity. MRI was reportedly negative for any acute changes and the patient was extubated on 07/18 and Dobhoff was removed on 07/19. They also report that he was diagnosed with a patent foramen ovale, but has not been repaired. He continues to have some ongoing dysphagia, on a modified diet and nectar thick liquids. On discussion with him in his family members in the room, his right arm function is slightly less than it was, and his sensation is worse on the right side per his report. Unclear if his aphasia is worse or better after this seizure, the patient endorses that things feel little bit foggy. Otherwise no new pain, no new shortness of breath or chest pain, no new numbness , tingling, or weakness. He was diagnosed with a new DVT in the subclavian vein and was started on anticoagulation. Functional History: His prior function as described above. He was living with his in a multilevel home with stairs to the 2nd floor which he could navigate easily. He used to hiking stick. He was independent during the day and enjoyed doing gardening. Currently has aspiration precautions, seizure precautions, modified diet, a right arm splint, right-sided AFO, right-sided sling during the day. Noted to be a fall risk as well. He requires minimum assistance for grooming, maximum assistance for upper body dressing, minimum assistance for transfer, bladder management is currently with a condom catheter. Bed mobility is moderate assistance, transfers with Min to moderate assistance, equipment is with a front wheel walker and splints as mentioned above. Sitting balance with minimum to moderate assistance, endurance is fair, gait has not been assessed. He has moderate dysphonia and aphasia. Noted to have spasticity of the right upper and right lower limb. ROS: All of the systems are negative except for as described above, denies any shortness of breath or chest pain specifically Precautions: Listed above in functional history Active Comorbidities: Hemiparesis, dysphagia, cognitive impairment, aphasia, hypothyroidism, HIV, prior stroke in 2017 with a left MCA, depression. DVT on anticoagulation PMH/PSH: Prior stroke in the left MCA in 2017, depression afterwards, hypothyroidism, HIV on chronic anti-retroviral therapy. He had a negative stroke workup previously which included genetic testing for hypercoagulability. Family Hx: Brother had a myocardial infarction at age 50, father had a stroke at an unknown age. On the father side, grandmother also had a stroke in grandfather had a myocardial infarction at age 47. Social Hx: and lives with his , currently not employed. He does not smoke, drinks occasional alcohol, no drugs. Previous foster children have moved out. He has assistance from his at night, but was independent during the days. Allergies: Allergic to grapefruit and grapefruit juice Medications on transfer are as follows: Acetaminophen 650 mg by mouth every 6 hr for pain Aspirin 325 mg tablet by mouth once a day Atorvastatin 40 mg by mouth at bedtime dolutegravir 50 mg by mouth once a day emtricitabine-tenofovir alafenamide 200-25 mg tab by mouth once a day Fluoxetine 20 mg daily Levothyroxine 125 mcg and 175 mcg alternating Valacyclovir 1 g by mouth 2 times a day Enoxaparin 70 mg under the skin every 12 hr Keppra 1000 mg by mouth 2 times a day MiraLax 17 g by mouth once a day as needed for constipation Senna/docusate 1 tab by mouth as needed for constipation Warfarin 5 mg once a day and 4:00 p.m. Physical Exam: PHYSICAL EXAM: VS: Reviewed and normal GEN: Normally developed, resting in bed, NAD EYES: Anicteric, PERRL EARS, NOSE, MOUTH, THROAT: MMM, normal dentition CV: Heart RRR, no LE edema, extremities warm. RESP: Breathing comfortably, lungs CTAB no wrr GI: Abd with +BS, non distended : No garrett in place, condom cath in place draining clear yellow urine MSK: no contracture noted, spasticity approximately 2 on the modified Simin scale in the right upper limb, 1+ in the right lower limb. AFO on the right lower limb, no skin breakdown SKIN: no rashes or skin breakdown noted, slight skin tear on the leg PSYCH: appropriate, pleasant, cooperative; normal mood, affect and thought content HEME/LYMPH: No supraclavicular lymphadenopathy NEURO: Mental status: The patient is alert; has what appears to be mostly expressive aphasia. Cranial Nerves II-XII were intact and symmetric bilaterally, including no diplopia. He appears to have a slight right-sided gaze preference, but does not seem to have visual neglect to double simultaneous stimulation. Strength was 5/5 on his left side biceps, triceps, wrist extensors, finger flexors, finger abductors, as well as hip flexors, knee extensors, ankle dorsiflexors, plantarflexors, and EHL. Trace on the right, except for hip flexors that are greater than 3, about 4/5. Reflexes were 3 + but more brisk on the right than the left in bi, tri, BR, patella, and achilles with present Ugarte's on the right. No spasticity. Sensation was intact to light touch in the hands and feet on the left but decreased on the right. [id number] and [id number] were dysmetric on the left, unable to do on the right. He was not ambulate. Results Review: Images were not available to review. Image reports indicated that he had a CT head on 07/09 that showed old left MCA territory infarct with left cerebral encephalomalacia and hips lateral dilation of the lateral ventricle. No change from prior study from 05/22/2017. MRI brain from 07/10 showed old left MCA distribution infarct without acute findings. No other etiology for seizures. Eeg from 07/10 showed no ongoing seizure activity. Upper extremity venous Doppler showed a newly completely occlusive thrombus in the left subclavian and cephalic veins. X-ray portable chest from 07/19/2017 showed a left lower lung airspace consolidation with new blunting of the left costophrenic angle could represent slight increase in airspace consolidation or tiny left pleural effusion. INR from 07/20 was 1.14. Assessment and Plan: Very pleasant 47-year-old male with premorbid left MCA cryptogenic ischemic stroke from a little over a year ago and longstanding HIV now with worsened weakness, impaired sensation, and some impaired cognition by his report in the setting of status epilepticus on 07/09/2017 without radiographic evidence of new stroke or progressive stroke. From a rehabilitation standpoint, he has a good prognosis for discharge home modified independent during the day, with family assistance in the evenings. Goal would be modified independence in all areas. Plan to discharge home with family and supportive services. I anticipate that he will likely benefit from home or outpatient therapy in PT, OT, and speech as he has been doing. He will need 60 min a day 5-7 days a week for 14-21 days of all therapies including PT, OT, and speech therapy. Anticipate he will also benefit from work with the social professionals. Estimated length of stay is 14-21 days. Specific issues below. New functional impairments status post status epilepticus and chronic hemiplegia from stroke: PT, OT, speech for impairments in mobility, self-care, and aphasia. He also has ongoing dysphagia which will require speech therapy as well. He is currently on a modified diet. He also has adaptive equipment including a right-sided AFO that needs some modification, also has right-sided arm brace and resting splint for nighttime use. These will be assessed by orthotics. Spasticity: Encourage continued stretching, consider use of oral anti spasticity medications if necessary, monitoring for any decrease in function because of weakened muscles. He would likely be a good candidate for Botox injections in the right upper limb after discharge. Seizures: New seizures thought associated with his old stroke location, etiology otherwise unknown. Continue his seizure prophylaxis with levetiracetam and seizure precautions History of stroke: Continue secondary stroke prevention including aspirin. He is now on warfarin as well for the DVT, but this may continue longer term given the history of embolic events in his family. Continue lipid lowering statins. New upper extremity DVT: Continue enoxaparin until therapeutic for 2 days in the range of INR of 2-3 with warfarin, pharmacy to dose. Currently at 5 mg daily. Gave counseling on warfarin to patient and family on admission. Depression: Continue fluoxetine Hypothyroidism: Continue levothyroxine at alternating doses of 125 mcg and 175 mcg HIV: Continue home anti-retroviral medications Wound care: Noted to have a skin tear on admission, ointment and dressing changes daily per nursing. Code Status: Full code Proph: Enoxaparin and warfarin for DVT treatment Skin: Prevention of skin damage, no pressure ulcers on admission The patient is medically stable for participation in inpatient rehabilitation. I have reviewed the Preadmission Screen, and do not identify any relevant changes in the patients status since this was completed. The patient is at high risk for recurrent DVT or embolic event, pressure ulcer, urinary tract infection , seizure. Preventative measures as noted above.
[2017-07-20] MEDS: valACYclovir 500 MG TAB PO SCH (20:39)
[2017-07-20] MEDS: ATORVASTATIN CALCIUM 40 MG TAB PO SCH (20:39)
[2017-07-20] MEDS: ENOXAPARIN 80 MG/0.8 ML SYR SC SCH (20:40)
[2017-07-20] MEDS: levETIRAcetam 500 MG TAB PO SCH (20:40)
[2017-07-20] MEDS: [UNRECOGNIZED DRUG - OTHER] TP SCH (20:41)
[2017-07-20] MEDS ORDERED: NON-FORMULARY NEW DRUG (Valacyclovir Hcl [Valtrex] 1,000 MG) PO SCH (21:00)
[2017-07-21] MEDS: LEVOTHYROXINE 125 MCG TAB PO SCH (08:01)
[2017-07-21] MEDS: ENOXAPARIN 80 MG/0.8 ML SYR SC SCH ×2 (08:03→20:37)
[2017-07-21] MEDS: CARBOXYMETHYLCELLULOSE 1% 0.4 ML DROPERETTE EACHEYE PRN ×3 (08:07→21:00)
[2017-07-21] MEDS: FLUoxetine 20 MG CAP PO SCH (08:10)
[2017-07-21] MEDS: ASPIRIN 325 MG TAB PO SCH (08:10)
[2017-07-21] MEDS: Dolutegravir Sodium [Tivicay] 50 MG PO SCH (08:10)
[2017-07-21] MEDS: levETIRAcetam 500 MG TAB PO SCH ×2 (08:10→20:37)
[2017-07-21] MEDS: valACYclovir 500 MG TAB PO SCH ×2 (08:10→20:37)
[2017-07-21] MEDS: Emtricitabine/Tenofov Alafenam [Descovy 200-25 Mg Tablet] PO SCH (08:11)
[2017-07-21] MEDS: POLYETHYLENE GLYCOL 3350 17 GM PKT PO SCH (08:41)
[2017-07-21] MEDS ORDERED: NON-FORMULARY NEW DRUG (Dolutegravir Sodium [Tivicay] 50 MG) PO SCH (09:00)
[2017-07-21] MEDS ORDERED: NON-FORMULARY NEW DRUG (Emtricitabine/Tenofov Alafenam [Descovy 200-25 Mg Tablet] 1 EACH) PO SCH (09:00)
[2017-07-21 09:30] LABS: PLATELET COUNT 366 10^3/uL (150-400)
[2017-07-21 09:59] LABS: INR 1.55 (0.83-1.16); PROTIME(PATIENT) 18.7 SEC (12.0-15.0)
--- NOTE | 2017-07-21 11:23 | SOAPPROG ---
SOAP Progress Note Assessment/Plan: 47-year-old male with premorbid left MCA cryptogenic ischemic stroke with impaired function following a status epilepticus thought related to the stroke, 07/09/2017. Today's update: Just getting started in rehabilitation, INR is not yet therapeutic, continue warfarin as well as subcutaneous enoxaparin. Other labs look fine with the exception of some leukocytosis. Continue to monitor. Mood is good. No changes to medications today. Other issues reviewed without update today include spasticity, seizures, depression, hypothyroidism, HIV management. 07/21/17 11:20 Subjective: Chief complaint: Rehabilitation progress No acute events overnight. Patient denies any new shortness of breath or chest pain, no new numbness, tingling, or weakness. He slept okay, just getting started in rehabilitation today. He has no concerns and has addressed no issues that would be interfering with therapy today. Family was also in the room including his and Mom, they had no concerns yet today. Objective: Vital Signs Temp Pulse Resp BP Pulse Ox 36.6 C 57 L 16 108/73 93 07/21/17 07:59 07/21/17 07:59 07/21/17 07:59 07/21/17 07:59 07/21/17 07:59 Laboratory Results 07/21/17 06:25 07/21/17 06:25 07/20/17 07/21/17 07/22/17 05:59 05:59 05:59 Intake Total 1228 Output Total 400 Balance 828 PT 18.7 SEC (12.0-15.0) H 07/21/17 06:25 INR 1.55 (0.83-1.16) H 07/21/17 06:25 Physical Exam - Physical Exam General Appearance: WD/WN, alert, no apparent distress EENT: No scleral icterus (R), No scleral icterus (L) Respiratory: No respiratory distress, No accessory muscle use Cardiac/Chest: normal peripheral pulses, regular rate, rhythm, No edema Skin: normal color, warm/dry, No cyanosis, No diaphoresis Extremities: non-tender, No pedal edema, No calf tenderness, No swelling, No Marcie's sign Neuro/Psych: alert, normal mood/affect, motor weakness, speech abnormalities, other (AFO on the right leg fitting well), No oriented x 3 (Not oriented to date ) ICD10 Worksheet Patient Problems: Problems Problem Status Onset Aphasia due to recent cerebrovascular accident (CVA) Acute Cerebrovascular accident (CVA) due to occlusion of left middle cerebral artery Acute Headache Acute Hemiplegia and hemiparesis following cerebral infarction affecting right dominant side Acute Neuropathic pain Acute
[2017-07-21] MEDS ORDERED: WARFARIN SODIUM 2.5 MG TAB PO ONE (16:00)
[2017-07-21] MEDS: ATORVASTATIN CALCIUM 40 MG TAB PO SCH (20:37)
[2017-07-21] MEDS: [UNRECOGNIZED DRUG - OTHER] TP SCH (20:37)
[2017-07-22 08:16] LABS: INR 1.93 (0.83-1.16); PROTIME(PATIENT) 22.1 SEC (12.0-15.0)
[2017-07-22] MEDS: Dolutegravir Sodium [Tivicay] 50 MG PO SCH (09:12)
[2017-07-22] MEDS: ASPIRIN 325 MG TAB PO SCH (09:12)
[2017-07-22] MEDS: FLUoxetine 20 MG CAP PO SCH (09:13)
[2017-07-22] MEDS: levETIRAcetam 500 MG TAB PO SCH ×2 (09:13→20:23)
[2017-07-22] MEDS: Emtricitabine/Tenofov Alafenam [Descovy 200-25 Mg Tablet] PO SCH (09:13)
[2017-07-22] MEDS: ENOXAPARIN 80 MG/0.8 ML SYR SC SCH ×2 (09:13→20:23)
[2017-07-22] MEDS: valACYclovir 500 MG TAB PO SCH ×2 (09:15→20:23)
[2017-07-22] MEDS: POLYETHYLENE GLYCOL 3350 17 GM PKT PO SCH (09:15)
--- NOTE | 2017-07-22 09:27 | SOAPPROG ---
SOAP Progress Note Assessment/Plan: Assessment: New functional impairments status post status epilepticus and chronic hemiplegia from stroke: * PT, OT, speech for impairments in mobility, self-care, and aphasia. He also has ongoing dysphagia which will require speech therapy as well. He is currently on a modified diet. He also has adaptive equipment including a right- sided AFO that needs some modification, also has right-sided arm brace and resting splint for nighttime use. These will be assessed by orthotics. Spasticity: Encourage continued stretching. * Consider use of oral anti spasticity medications if necessary, monitoring for any decrease in function because of weakened muscles. He would likely be a good candidate for Botox injections in the right upper limb after discharge. Seizures: New seizures thought associated with his old stroke location, etiology otherwise unknown. * Continue his seizure prophylaxis with levetiracetam and seizure precautions History of stroke: * Continue secondary stroke prevention including aspirin. * He is now on warfarin as well for the DVT, but this may continue longer term given the history of embolic events in his family. * Continue lipid lowering statins. New upper extremity DVT: * Continue enoxaparin until therapeutic for 2 days in the range of INR of 2-3 with warfarin, pharmacy to dose. Currently at 5 mg daily. G Depression: Continue fluoxetine Hypothyroidism: Continue levothyroxine at alternating doses of 125 mcg and 175 mcg HIV: Continue home anti-retroviral medications Wound care: Noted to have a skin tear on admission, ointment and dressing changes daily per nursing. Proph: Enoxaparin and warfarin for DVT treatment 07/22/17 10:55 Subjective: No complaints. Slept well. Not in pain. Objective: Vital Signs Temp Pulse Resp BP Pulse Ox 36.6 C 59 L 16 107/67 92 07/22/17 06:34 07/22/17 06:34 07/22/17 06:34 07/22/17 06:34 07/22/17 06:34 Laboratory Results 07/21/17 06:25 07/21/17 06:25 07/21/17 07/22/17 07/23/17 05:59 05:59 05:59 Intake Total 1228 804 Output Total 400 Balance 828 804 PT 22.1 SEC (12.0-15.0) H 07/22/17 06:35 INR 1.93 (0.83-1.16) H 07/22/17 06:35 Physical Exam - Physical Exam General Appearance: WD/WN, alert, no apparent distress Respiratory: No accessory muscle use, No decreased breath sounds Skin: normal color, warm/dry Neuro/Psych: alert, normal mood/affect, motor weakness (Right upper extremity greater than right lower extremity) ICD10 Worksheet Patient Problems: Problems Problem Status Onset Aphasia due to recent cerebrovascular accident (CVA) Acute Cerebrovascular accident (CVA) due to occlusion of left middle cerebral artery Acute Headache Acute Hemiplegia and hemiparesis following cerebral infarction affecting right dominant side Acute Neuropathic pain Acute
[2017-07-22] MEDS: LEVOTHYROXINE 175 MCG TAB PO SCH (10:11)
[2017-07-22] MEDS ORDERED: WARFARIN SODIUM 2 MG TAB PO ONE (16:00)
[2017-07-22] MEDS: ACETAMINOPHEN 325 MG TAB PO PRN (19:54)
[2017-07-22] MEDS: ATORVASTATIN CALCIUM 40 MG TAB PO SCH (20:23)
[2017-07-22] MEDS: [UNRECOGNIZED DRUG - OTHER] TP SCH (20:26)
[2017-07-23 08:14] LABS: INR 2.08 (0.83-1.16); PROTIME(PATIENT) 23.4 SEC (12.0-15.0)
[2017-07-23] MEDS: ASPIRIN 325 MG TAB PO SCH (08:30)
[2017-07-23] MEDS: Dolutegravir Sodium [Tivicay] 50 MG PO SCH (08:30)
[2017-07-23] MEDS: Emtricitabine/Tenofov Alafenam [Descovy 200-25 Mg Tablet] PO SCH (08:31)
[2017-07-23] MEDS: ENOXAPARIN 80 MG/0.8 ML SYR SC SCH ×2 (08:32→20:47)
[2017-07-23] MEDS: FLUoxetine 20 MG CAP PO SCH (08:33)
[2017-07-23] MEDS: levETIRAcetam 500 MG TAB PO SCH ×2 (08:33→20:46)
[2017-07-23] MEDS: LEVOTHYROXINE 125 MCG TAB PO SCH (08:33)
[2017-07-23] MEDS: valACYclovir 500 MG TAB PO SCH ×2 (08:34→20:46)
[2017-07-23] MEDS: POLYETHYLENE GLYCOL 3350 17 GM PKT PO SCH (08:34)
--- NOTE | 2017-07-23 10:39 | SOAPPROG ---
SOAP Progress Note Assessment/Plan: 47-year-old male with premorbid left MCA cryptogenic ischemic stroke with impaired function following a status epilepticus thought related to the stroke, 07/09/2017. Today's update: Therapy going well. INR is in the therapeutic range for the 1st time today, continue enoxaparin until therapeutic for 2 days. No appreciable change in his neurological function today. Other issues reviewed without update today include spasticity, seizures, depression, hypothyroidism, HIV management. 07/21/17 11:20 07/23/17 10:36 Subjective: Chief complaint: Neurological stability and anticoagulation No acute events overnight. Patient denies any new shortness of breath or chest pain, no new numbness, tingling, or weakness. He feels that the sensory changes on his right side are stable from when he came in to inpatient rehab. So is his motor function. He also still feels some cognitive cloudiness that he endorsed on admission to inpatient rehab and does not feel that that is changed. He feels that therapy is going well and there is not anything getting in the way was therapy including spasticity. He is not having any pain. Objective: Vital Signs Temp Pulse Resp BP Pulse Ox 36.6 C 57 L 18 102/62 92 07/23/17 06:25 07/23/17 06:25 07/23/17 06:25 07/23/17 06:25 07/23/17 06:25 Laboratory Results 07/21/17 06:25 07/21/17 06:25 07/22/17 07/23/17 07/24/17 05:59 05:59 05:59 Intake Total 804 2168 596 Output Total 275 Balance 804 1893 596 PT 23.4 SEC (12.0-15.0) H 07/23/17 06:00 INR 2.08 (0.83-1.16) H 07/23/17 06:00 Physical Exam - Physical Exam General Appearance: WD/WN, alert, no apparent distress EENT: No scleral icterus (R), No scleral icterus (L) Respiratory: No respiratory distress, No accessory muscle use Cardiac/Chest: normal peripheral pulses, regular rate, rhythm, No edema Skin: normal color, warm/dry, No cyanosis, No diaphoresis Extremities: non-tender, No pedal edema, No calf tenderness, No swelling, No Marcie's sign Neuro/Psych: alert, normal mood/affect, speech abnormalities (Ongoing aphasia, spasticity of the right upper limb was approximately 2 on the modified Simin scale.) ICD10 Worksheet Patient Problems: Problems Problem Status Onset Aphasia due to recent cerebrovascular accident (CVA) Acute Cerebrovascular accident (CVA) due to occlusion of left middle cerebral artery Acute Headache Acute Hemiplegia and hemiparesis following cerebral infarction affecting right dominant side Acute Neuropathic pain Acute
[2017-07-23] MEDS ORDERED: WARFARIN SODIUM 3 MG TAB PO ONE (16:00)
[2017-07-23] MEDS: BACLOFEN 10 MG TAB PO SCH ×2 (16:19→20:48)
[2017-07-23] MEDS: ATORVASTATIN CALCIUM 40 MG TAB PO SCH (20:46)
[2017-07-23] MEDS: [UNRECOGNIZED DRUG - OTHER] TP SCH (20:56)
[2017-07-24] MEDS: BACLOFEN 10 MG TAB PO SCH ×3 (08:48→20:28)
[2017-07-24] MEDS: POLYETHYLENE GLYCOL 3350 17 GM PKT PO SCH (08:48)
[2017-07-24] MEDS: ASPIRIN 325 MG TAB PO SCH (08:50)
[2017-07-24] MEDS: Dolutegravir Sodium [Tivicay] 50 MG PO SCH (08:50)
[2017-07-24] MEDS: Emtricitabine/Tenofov Alafenam [Descovy 200-25 Mg Tablet] PO SCH (08:51)
[2017-07-24] MEDS: ENOXAPARIN 80 MG/0.8 ML SYR SC SCH (08:51)
[2017-07-24] MEDS: levETIRAcetam 500 MG TAB PO SCH ×2 (08:52→20:28)
[2017-07-24] MEDS: FLUoxetine 20 MG CAP PO SCH (08:52)
[2017-07-24] MEDS: LEVOTHYROXINE 125 MCG TAB PO SCH (08:53)
[2017-07-24] MEDS: valACYclovir 500 MG TAB PO SCH ×2 (08:54→20:28)
[2017-07-24] MEDS: LEVOTHYROXINE 175 MCG TAB PO SCH (08:56)
[2017-07-24 08:59] LABS: INR 1.98 (0.83-1.16); PROTIME(PATIENT) 22.6 SEC (12.0-15.0)
--- NOTE | 2017-07-24 13:42 | SOAPPROG ---
SOAP Progress Note Assessment/Plan: Assessment: New functional impairments, status post status epilepticus, with chronic hemiplegia from stroke: * Initial functional impairment measure 57 on 07/24/2017. Ambulated 150 ft with contact guard assist using a tracking pole, standby assist with right AFO. Noted to have right lower extremity clonus. Climbed and descended 18 stairs with standby assist and 1 rail. Upper body and lower body dressing are done with supervision. Grooming hygiene are done seated with modified independence. He has minimal assist for bed mobility in the morning therapists note increased tone in the right biceps wrist and right digits. * Continue PT, OT, speech for impairments in mobility, self-care, and aphasia. Dysphagia. Advanced to regular diet with thin liquids. Spasticity: Encourage continued stretching. * Baclofen initiated yesterday. No adverse effects noted. Observe for improvement in spasticity. Seizures: New seizures thought associated with his old stroke location, etiology otherwise unknown. * Continue his seizure prophylaxis with levetiracetam and seizure precautions History of stroke: * Continue secondary stroke prevention including aspirin. * He is now on warfarin as well for the DVT, but this may continue longer term given the history of embolic events in his family. * Continue lipid lowering statins. New upper extremity DVT: * INR was therapeutic yesterday, slightly subtherapeutic at 1.98 today, 2017. Will discontinue enoxaparin. Continue warfarin management per pharmacy. Depression: Continue fluoxetine Hypothyroidism: Continue levothyroxine at alternating doses of 125 mcg and 175 mcg HIV: Continue home anti-retroviral medications Wound care: Noted to have a skin tear on admission, ointment and dressing changes daily per nursing. Proph: Enoxaparin and warfarin for DVT treatment DISPOSITION: Attended staffing, 15 min. Discussed with case management, nursing, PT, OT, [employer], dietitian. He showing rapid improvement toward baseline. Discharge date set for 07/27/2017. He has plans prior to his hospitalization to initiate an intensive FA program at [facility] on 07/30/2017. 07/24/17 13:34 Subjective: No complaints. Started baclofen yesterday for spasticity and has not noted any adverse effects. Objective: Vital Signs Temp Pulse Resp BP Pulse Ox 36.6 C 66 18 109/71 92 07/24/17 06:23 07/24/17 06:23 07/24/17 06:23 07/24/17 06:23 07/24/17 06:23 Laboratory Results 07/21/17 06:25 07/21/17 06:25 07/23/17 07/24/17 07/25/17 05:59 05:59 05:59 Intake Total 2168 1286 760 Output Total 275 Balance 1893 1286 760 PT 22.6 SEC (12.0-15.0) H 07/24/17 06:00 INR 1.98 (0.83-1.16) H 07/24/17 06:00 - Time Spent With Patient Time Spent With Patient: Greater than 35 min floor time today, including more than 50% of time in coordination of care during staffing, and counseling patient. Physical Exam - Physical Exam General Appearance: WD/WN, alert, no apparent distress Respiratory: No respiratory distress, No accessory muscle use Skin: normal color, warm/dry Neuro/Psych: alert, normal mood/affect, abnormal gait (Ambulates with tracking pole in left hand and right AFO, step through pattern. Observed receiving electronic stimulation to extensor muscles of the right forearm.), motor weakness (Right upper and lower extremity) ICD10 Worksheet Patient Problems: Problems Problem Status Onset Aphasia due to recent cerebrovascular accident (CVA) Acute Cerebrovascular accident (CVA) due to occlusion of left middle cerebral artery Acute Headache Acute Hemiplegia and hemiparesis following cerebral infarction affecting right dominant side Acute Neuropathic pain Acute
[2017-07-24] MEDS ORDERED: WARFARIN SODIUM 3 MG TAB PO ONE (16:00)
[2017-07-24] MEDS: ATORVASTATIN CALCIUM 40 MG TAB PO SCH (20:28)
[2017-07-24] MEDS: [UNRECOGNIZED DRUG - OTHER] TP SCH (20:29)
[2017-07-25] MEDS: LEVOTHYROXINE 125 MCG TAB PO SCH (08:32)
[2017-07-25] MEDS: LEVOTHYROXINE 175 MCG TAB PO SCH (08:32)
[2017-07-25] MEDS: ASPIRIN 325 MG TAB PO SCH (08:32)
[2017-07-25] MEDS: FLUoxetine 20 MG CAP PO SCH (08:32)
[2017-07-25] MEDS: POLYETHYLENE GLYCOL 3350 17 GM PKT PO SCH (08:33)
[2017-07-25] MEDS: levETIRAcetam 500 MG TAB PO SCH ×2 (08:33→20:10)
[2017-07-25] MEDS: BACLOFEN 10 MG TAB PO SCH ×3 (08:33→20:11)
[2017-07-25] MEDS: Dolutegravir Sodium [Tivicay] 50 MG PO SCH (08:35)
[2017-07-25] MEDS: Emtricitabine/Tenofov Alafenam [Descovy 200-25 Mg Tablet] PO SCH (08:35)
[2017-07-25 08:43] LABS: INR > 16.20 (0.83-1.16); PROTIME(PATIENT) > 120.0 SEC (12.0-15.0)
[2017-07-25] MEDS: valACYclovir 500 MG TAB PO SCH ×2 (08:46→20:10)
--- NOTE | 2017-07-25 10:17 | SOAPPROG ---
JOHN Progress Note Assessment/Plan: 47-year-old male with premorbid left MCA cryptogenic ischemic stroke with impaired function following a status epilepticus thought related to the stroke, 07/09/2017. Today's update: INR of greater than 20 is likely a lab error, ordering a follow -up stat. Patient is not experiencing any signs or symptoms of bleeding. Hold off on any anticoagulation changes until verified. Does not appreciate change in tone but is possibly having some cognitive issues from baclofen. Continue at 5 mg three times daily for now, hold off on increase until he is adjusted to this dose. Otherwise, therapy progress going well per his report and others. A total of 35 min was spent on the floor in the care of the patient, the majority of which was spent in counseling coordination of care regarding therapy interdisciplinary meetings and coordination of management of elevated INR Other issues reviewed without update today include seizures, depression, hypothyroidism, HIV management. 07/21/17 11:20 07/23/17 10:36 07/25/17 10:14 07/25/17 10:19 Subjective: Chief complaint: Elevated INR No acute events overnight. Patient denies any new shortness of breath or chest pain, no new numbness, tingling, or weakness. INR today is reported to be greater than 20 where it was less than 2 yesterday. I anticipate that this is a lab error and reordered a stat INR. Patient denies any bleeding or signs or symptoms of bleeding associated issues no increase in bruising. Patient slept well, has no pain complaints, feels that neurologically his movement and sensation is getting slightly better on the right. He does feel like that the baclofen may have made him slightly foggy year from a cognitive standpoint so we will watch this carefully. Objective: Vital Signs Temp Pulse Resp BP Pulse Ox 37.0 C 65 15 99/65 L 92 07/24/17 20:00 07/24/17 20:00 07/24/17 20:00 07/24/17 20:00 07/24/17 20:00 Laboratory Results 07/21/17 06:25 07/21/17 06:25 07/24/17 07/25/17 07/26/17 05:59 05:59 05:59 Intake Total 1286 1100 596 Balance 1286 1100 596 PT > 120.0 SEC (12.0-15.0) H 07/25/17 06:45 INR > 16.20 (0.83-1.16) H* 07/25/17 06:45 Physical Exam - Physical Exam General Appearance: WD/WN, alert, no apparent distress Respiratory: No respiratory distress, No accessory muscle use Cardiac/Chest: normal peripheral pulses, regular rate, rhythm, No edema Skin: normal color, warm/dry, No cyanosis, No diaphoresis Extremities: non-tender, No pedal edema, No calf tenderness, No swelling Neuro/Psych: alert, normal mood/affect, motor weakness (Continued right hemiparesis), speech abnormalities (Continued aphasia) ICD10 Worksheet Patient Problems: Problems Problem Status Onset Aphasia due to recent cerebrovascular accident (CVA) Acute Cerebrovascular accident (CVA) due to occlusion of left middle cerebral artery Acute Headache Acute Hemiplegia and hemiparesis following cerebral infarction affecting right dominant side Acute Neuropathic pain Acute
[2017-07-25 13:16] LABS: INR 1.94 (0.83-1.16); PROTIME(PATIENT) 22.2 SEC (12.0-15.0)
[2017-07-25] MEDS ORDERED: WARFARIN SODIUM 4 MG TAB PO ONE (16:00)
[2017-07-25] MEDS: [UNRECOGNIZED DRUG - OTHER] TP SCH (20:10)
[2017-07-25] MEDS: ATORVASTATIN CALCIUM 40 MG TAB PO SCH (20:10)
[2017-07-26 08:34] LABS: INR 2.03 (0.83-1.16)
[2017-07-26] MEDS: ASPIRIN 325 MG TAB PO SCH (09:47)
[2017-07-26] MEDS: valACYclovir 500 MG TAB PO SCH ×2 (09:47→21:37)
[2017-07-26] MEDS: levETIRAcetam 500 MG TAB PO SCH ×2 (09:48→21:38)
[2017-07-26] MEDS: FLUoxetine 20 MG CAP PO SCH (09:48)
[2017-07-26] MEDS: BACLOFEN 10 MG TAB PO SCH ×3 (09:48→21:38)
[2017-07-26] MEDS: POLYETHYLENE GLYCOL 3350 17 GM PKT PO SCH (09:49)
[2017-07-26] MEDS: Dolutegravir Sodium [Tivicay] 50 MG PO SCH (09:50)
[2017-07-26] MEDS: Emtricitabine/Tenofov Alafenam [Descovy 200-25 Mg Tablet] PO SCH (09:50)
--- NOTE | 2017-07-26 14:43 | SOAPPROG ---
SOAP Progress Note Assessment/Plan: Assessment: New functional impairments, status post status epilepticus, with chronic hemiplegia from stroke: * Initial functional impairment measure 57 on 07/24/2017. Ambulated 150 ft with contact guard assist using a trekking pole, standby assist with right AFO. Noted to have right lower extremity clonus. Climbed and descended 18 stairs with standby assist and 1 rail. Upper body and lower body dressing are done with supervision. Grooming hygiene are done seated with modified independence. He has minimal assist for bed mobility in the morning therapists note increased tone in the right biceps wrist and right digits. * Continue PT, OT, speech for impairments in mobility, self-care, and aphasia. Dysphagia. Advanced to regular diet with thin liquids. Spasticity: Encourage continued stretching. * Baclofen initiated 07/23/2017. No adverse effects noted. Observe for improvement in spasticity. * Tone not interfering with mobility, per PT. Await more detailed assessment with OT. Seizures: New seizures thought associated with his old stroke location, etiology otherwise unknown. * Continue his seizure prophylaxis with levetiracetam and seizure precautions History of stroke: * Continue secondary stroke prevention including aspirin. * He is now on warfarin as well for the DVT, but this may continue longer term given the history of embolic events in his family. * Continue lipid lowering statins. New upper extremity DVT: * Therapeutic on warfarin, and enoxaparin discontinued 07/25/2017. Continue warfarin management per pharmacy. Depression: Continue fluoxetine Hypothyroidism: Continue levothyroxine at alternating doses of 125 mcg and 175 mcg HIV: Continue home anti-retroviral medications Wound care: Noted to have a skin tear on admission, ointment and dressing changes daily per nursing. Proph: Enoxaparin and warfarin for DVT treatment DISPOSITION: He is showing rapid improvement toward baseline. Discharge date set for 07/30/2017. He has plans prior to his hospitalization to initiate an intensive aphasia program at [facility] on 01/2018. 07/26/17 14:40 Subjective: Not sure if there is any change in muscle tone on baclofen. Says his head feels foggy, but he is not sure if that is since beginning the baclofen or if it started after his seizures. Otherwise without complaints. Objective: Vital Signs Temp Pulse Resp BP Pulse Ox 36.6 C 61 16 109/67 92 07/26/17 06:10 07/26/17 06:10 07/26/17 06:10 07/26/17 06:10 07/26/17 06:10 Laboratory Results 07/21/17 06:25 07/21/17 06:25 07/25/17 07/26/17 07/27/17 05:59 05:59 05:59 Intake Total 1100 1057 720 Output Total 300 Balance 1100 757 720 PT 23.0 SEC (12.0-15.0) H 07/26/17 06:10 INR 2.03 (0.83-1.16) H 07/26/17 06:10 Physical Exam - Physical Exam General Appearance: WD/WN, alert, no apparent distress Respiratory: No respiratory distress, No accessory muscle use Skin: normal color, warm/dry Neuro/Psych: alert, normal mood/affect, oriented x 3, abnormal gait (Trekking pole in left hand), motor weakness (Right upper extremity especially at wrist and fingers. Flexor tone in fingers at PIP joint. Extensor tone at bicep. No increased tone noted right lower extremity.), speech abnormalities (Expressive aphasia but able to answer questions appropriately) ICD10 Worksheet Patient Problems: Problems Problem Status Onset Aphasia due to recent cerebrovascular accident (CVA) Acute Cerebrovascular accident (CVA) due to occlusion of left middle cerebral artery Acute Headache Acute Hemiplegia and hemiparesis following cerebral infarction affecting right dominant side Acute Neuropathic pain Acute
[2017-07-26] MEDS ORDERED: WARFARIN SODIUM 4 MG TAB PO ONE (16:00)
[2017-07-26] MEDS: [UNRECOGNIZED DRUG - OTHER] TP SCH (21:00)
[2017-07-26] MEDS: ATORVASTATIN CALCIUM 40 MG TAB PO SCH (21:38)
[2017-07-27] MEDS: valACYclovir 500 MG TAB PO SCH ×2 (08:48→21:12)
[2017-07-27] MEDS: ASPIRIN 325 MG TAB PO SCH (08:48)
[2017-07-27] MEDS: levETIRAcetam 500 MG TAB PO SCH ×2 (08:48→21:11)
[2017-07-27] MEDS: POLYETHYLENE GLYCOL 3350 17 GM PKT PO SCH (08:48)
[2017-07-27] MEDS: Dolutegravir Sodium [Tivicay] 50 MG PO SCH (08:48)
[2017-07-27] MEDS: FLUoxetine 20 MG CAP PO SCH (08:48)
[2017-07-27] MEDS: BACLOFEN 10 MG TAB PO SCH ×3 (08:48→21:12)
[2017-07-27] MEDS: Emtricitabine/Tenofov Alafenam [Descovy 200-25 Mg Tablet] PO SCH (08:49)
[2017-07-27] MEDS: LEVOTHYROXINE 125 MCG TAB PO SCH (08:51)
[2017-07-27] MEDS: ACETAMINOPHEN 325 MG TAB PO PRN (13:13)
--- NOTE | 2017-07-27 15:56 | HOSPPROG ---
Hospitalist Progress Note Assessment/Plan: Assessment: 47 yo M p/w acute functional physical impairments s/p recurrent seizure Plan: # Dysphagia. Advanced to regular diet with thin liquids. # Spasticity. 2/2 prior CVA, encourage continued stretching. -Baclofen initiated 07/23/2017 and tone in RUE seems appropriate for OT, d/w patient, hold on additional increases in dosing and gauge ability to engage in therapy # Seizure. Acute status epilepticus, new seizures thought associated with his old stroke location -Continue his seizure prophylaxis with levetiracetam and seizure precautions # Prior CVA. No new events, cont coumadin/asa/statin # Acute upper extremity DVT. S/p enoxaparin bridge, INR therapeutic 07/26 -repeat INR 07/28 # Depression: Continue fluoxetine # Hypothyroidism: Continue levothyroxine at alternating doses of 125 mcg and 175 mcg # HIV: Continue home anti-retroviral medications # Wound care: Noted to have a skin tear on admission, ointment and dressing changes daily per nursing. PPx. On coumadin Diet. Reg Code. Full Dispo. ADD 07/30, requires ongoing therapy Subjective: patient reports no pain in RUE Objective: Vital Signs Temp Pulse Resp BP Pulse Ox 36.5 C 63 16 100/60 92 07/27/17 05:35 07/27/17 05:35 07/27/17 05:35 07/27/17 05:44 07/27/17 05:35 Laboratory Results 07/21/17 06:25 07/21/17 06:25 07/26/17 07/27/17 07/28/17 05:59 05:59 05:59 Intake Total 1057 1220 1080 Output Total 300 675 Balance 703 476 6387 PT 23.0 SEC (12.0-15.0) H 07/26/17 06:10 INR 2.03 (0.83-1.16) H 07/26/17 06:10 - Physical Exam Constitutional: no apparent distress, appears nourished, not in pain, No uncomfortable Cardiovascular: regular rate and rhythym, no murmur, rub, or gallop, No edema Respiratory: no respiratory distress, no rales or rhonchi, clear to auscultation Gastrointestinal: normoactive bowel sounds, soft, non-tender abdomen, no palpable masses, No distension Musculoskeletal: other (mildly increased tone RUE) Neurologic: weakness (LLE 4/5, mild contracture RUE w/ minimal motor; 5/5 motor LUE/LLE), facial droop (R mouth palsy), other (AAOx1 (place)), No sensation intact bilaterally (subjective paresthesias RUE/LLE) Psychiatric: not anxious, flat affect, poor memory, other (concentration 2/7, word-finding difficulty), No agitated ICD10 Worksheet Patient Problems: Problems Problem Status Onset Headache Acute Neuropathic pain Acute Hemiplegia and hemiparesis following cerebral infarction affecting right dominant side Acute Aphasia due to recent cerebrovascular accident (CVA) Acute Cerebrovascular accident (CVA) due to occlusion of left middle cerebral artery Acute
[2017-07-27] MEDS ORDERED: WARFARIN SODIUM 4 MG TAB PO SCH (16:00)
[2017-07-27] MEDS: ATORVASTATIN CALCIUM 40 MG TAB PO SCH (21:11)
[2017-07-27] MEDS: [UNRECOGNIZED DRUG - OTHER] TP SCH (21:21)
[2017-07-28] MEDS: FLUoxetine 20 MG CAP PO SCH (08:59)
[2017-07-28] MEDS: POLYETHYLENE GLYCOL 3350 17 GM PKT PO SCH (08:59)
[2017-07-28] MEDS: BACLOFEN 10 MG TAB PO SCH ×3 (08:59→20:32)
[2017-07-28] MEDS: valACYclovir 500 MG TAB PO SCH ×2 (08:59→20:32)
[2017-07-28] MEDS: levETIRAcetam 500 MG TAB PO SCH ×2 (08:59→20:32)
[2017-07-28] MEDS: LEVOTHYROXINE 175 MCG TAB PO SCH (08:59)
[2017-07-28] MEDS: ASPIRIN 325 MG TAB PO SCH (08:59)
[2017-07-28] MEDS: Emtricitabine/Tenofov Alafenam [Descovy 200-25 Mg Tablet] PO SCH (09:00)
[2017-07-28] MEDS: Dolutegravir Sodium [Tivicay] 50 MG PO SCH (09:00)
[2017-07-28 09:21] LABS: INR 2.94 (0.83-1.16); PROTIME(PATIENT) 30.5 SEC (12.0-15.0)
--- NOTE | 2017-07-28 12:15 | HOSPPROG ---
Hospitalist Progress Note Assessment/Plan: Assessment: 47 yo M p/w acute functional physical impairments s/p recurrent seizure Plan: # Dysphagia. Advanced to regular diet with thin liquids. # Spasticity. 2/2 prior CVA, encourage continued stretching; using RUE support device -Baclofen initiated 07/23/2017 and tone in RUE seems appropriate for OT -hold on additional increases in dosing and gauge ability to engage in therapy # Seizure. Acute status epilepticus, new seizures thought associated with his old stroke location -Continue his seizure prophylaxis with levetiracetam and seizure precautions # Prior CVA w/ hemiplegia. No new events, cont coumadin/asa/statin -ongoing R hemiparesthesia, marked distal RUE paresis # Acute upper extremity DVT. S/p enoxaparin bridge, INR therapeutic 07/28 -repeat INR on 07/29 given rapid rise # Depression: Continue fluoxetine # Hypothyroidism: Continue levothyroxine at alternating doses of 125 mcg and 175 mcg # HIV: Continue home anti-retroviral medications # Wound care: Noted to have a skin tear on admission, ointment and dressing changes daily per nursing. PPx. On coumadin Diet. Reg Code. Full Dispo. ADD 07/30, requires ongoing therapy Subjective: patient reports moving bowels, urinating well, no pain in RUE Objective: Vital Signs Temp Pulse Resp BP Pulse Ox 36.6 C 60 16 114/73 94 07/28/17 05:54 07/28/17 05:54 07/28/17 05:54 07/28/17 05:54 07/28/17 05:54 Laboratory Results 07/21/17 06:25 07/21/17 06:25 07/27/17 07/28/17 07/29/17 05:59 05:59 05:59 Intake Total 1220 1230 460 Output Total 675 730 Balance 545 500 460 PT 30.5 SEC (12.0-15.0) H 07/28/17 06:05 INR 2.94 (0.83-1.16) H 07/28/17 06:05 - Physical Exam Constitutional: no apparent distress, not in pain, other (thin appearing), No uncomfortable Cardiovascular: regular rate and rhythym, no murmur, rub, or gallop, No edema Respiratory: no respiratory distress, no rales or rhonchi, clear to auscultation Gastrointestinal: normoactive bowel sounds, soft, non-tender abdomen, no palpable masses Musculoskeletal: other (mildly increased tone in RUE most notable on extension) Neurologic: AAOx3, facial droop (R mouth palsy), No sensation intact bilaterally (RUE/RLE paresthesia, 4/5 motor RLE, 0/5 distal motor RUE w/ 2/5 proximal motor; 5/5 LUE/LLE motor) Psychiatric: not anxious, not encephalopathic, flat affect, No agitated ICD10 Worksheet Patient Problems: Problems Problem Status Onset Headache Acute Neuropathic pain Acute Hemiplegia and hemiparesis following cerebral infarction affecting right dominant side Acute Aphasia due to recent cerebrovascular accident (CVA) Acute Cerebrovascular accident (CVA) due to occlusion of left middle cerebral artery Acute
[2017-07-28] MEDS ORDERED: WARFARIN SODIUM 2 MG TAB PO SCH (16:00)
[2017-07-28] MEDS: ATORVASTATIN CALCIUM 40 MG TAB PO SCH (20:32)
[2017-07-28] MEDS: [UNRECOGNIZED DRUG - OTHER] TP SCH (20:35)
[2017-07-29 06:04] VITALS: BP 107/70
[2017-07-29 08:13] LABS: INR 2.71 (0.83-1.16); PROTIME(PATIENT) 28.7 SEC (12.0-15.0)
[2017-07-29] MEDS: BACLOFEN 10 MG TAB PO SCH ×2 (09:04→16:23)
[2017-07-29] MEDS: valACYclovir 500 MG TAB PO SCH (09:05)
[2017-07-29] MEDS: LEVOTHYROXINE 125 MCG TAB PO SCH (09:05)
[2017-07-29] MEDS: levETIRAcetam 500 MG TAB PO SCH (09:05)
[2017-07-29] MEDS: ASPIRIN 325 MG TAB PO SCH (09:05)
[2017-07-29] MEDS: POLYETHYLENE GLYCOL 3350 17 GM PKT PO SCH (09:05)
[2017-07-29] MEDS: Emtricitabine/Tenofov Alafenam [Descovy 200-25 Mg Tablet] PO SCH (09:06)
[2017-07-29] MEDS: Dolutegravir Sodium [Tivicay] 50 MG PO SCH (09:06)
[2017-07-29] MEDS ORDERED: FLUoxetine 10 MG CAP PO ONE (09:15)
[2017-07-29] MEDS: FLUoxetine 20 MG CAP PO SCH (09:15)
--- NOTE | 2017-07-29 16:03 | GDS ---
[f rep st] DISCHARGE SUMMARY ADMITTING DIAGNOSIS: Debility following status epilepticus with hospitalization and intubation. DISCHARGE DIAGNOSIS: Debility following status epilepticus with hospitalization and intubation. OTHER DISCHARGE DIAGNOSES: Dysphagia, spasticity, upper extremity deep venous thrombosis. COMPLICATIONS: There were none. CONSULTATIONS: There were none. PROCEDURES: There were none. HISTORY AND HOSPITAL COURSE: This patient came to [facility] inpatient rehabilitation from [facility] where he had been admitted on , with seizures. He had a history of a cerebrovascular accident in the left middle cerebral artery distribution approximately a year prior which had left him with expressive aphasia and right hemiparesis. He was doing well at home with outpatient therapies, but he suffered a seizure and was taken to [facility] in status epilepticus. He was initially treated with lorazepam, as well as other urgent anticonvulsants, and required intubation. Ultimately, seizures were controlled with levetiracetam. He was extubated, medically stabilized, and discharged to inpatient rehabilitation. He did well with rehabilitation. He recovered ambulation at his baseline level and was able to ambulate 150 feet independently using a trekking pole and a right AFO. He climbed and descended 18 stairs with standby assist and 1 rail and otherwise achieved independence to modified independence with activities of daily living, though he continued to require supervision for shower transfer. He was able to prepare a simple meal. He continued to have increased tone and reduced function to the right upper extremity. In particular, he was noted to have excess tone in the biceps and in finger flexion. He was begun on baclofen at 5 mg three times daily and may have had some improvement. Further titration was not attempted due to his sensation of feeling foggy in terms of his thinking and attention. It was unclear if this may have been a holdover from status epilepticus or due to treatment with levetiracetam. He had dysphagia and was requiring a modified diet on admission. However, he was advanced to a regular diet with thin liquids during his stay. He had a right upper extremity deep venous thrombosis during his hospitalization. He was managed on warfarin and was therapeutic on his INR for several days. He had been on enoxaparin as well. This was discontinued once he became therapeutic. CONDITION UPON DISCHARGE: Good. ACTIVITY: Ad rogelio but he requires supervision for bath or shower transfers. DIET: Regular with regular texture and thin liquids. MEDICATIONS UPON DISCHARGE: 1. Atorvastatin 40 mg p.o. at bedtime. 2. Baclofen 5 mg p.o. three times daily. 3. Refresh Celluvisc eyedrops p.r.n. 4. Dolutegravir sodium 50 mg p.o. daily. 5. Emtricitabine/tenofovir 1 p.o. daily. 6. Fluoxetine 20 mg p.o. daily. 7. Levetiracetam 1000 mg p.o. twice daily. 8. Levothyroxine 125 mcg every other day and 175 mcg on alternating days. 9. Valacyclovir 1000 mg p.o. twice daily. 10. Warfarin 2 mg on Saturday and and 4 mg on [id number]- Saturday-Saturday. ISSUES TO BE ADDRESSED AT FOLLOWUP: 1. Functional status. He will continue PT and OT, and he can follow up with his primary care physician regarding his progress. 2. Seizure disorder. He has followup scheduled with [facility]. 3. Expressive aphasia. He had plans prior to hospitalization to initiate an intensive aphasia program at [facility] and he will proceed with this plan. 4. Hypertonicity, right upper extremity. He is being referred to gum mixer, Dr. Deepali Sullivan, for further management. 5. Right upper extremity deep venous thrombosis with warfarin to be managed by primary care. Greater than 30 minutes was spent on this discharge summary including medication reconciliation, coordination of care, and counseling patient. Copy requested to: [facility] /[id number]/[id number] [email or web address]
[2017-07-29] MEDS ORDERED: WARFARIN SODIUM 4 MG TAB PO ONE (16:15)
== END 2017-07-29 18:40 | disposition home or self-care (01) | DRG 57 ==
LOC: BREH 12:39
PROVIDERS: ADMIT Physical Medicine & Rehabilitation; ATTEND Internal Medicine
PROC: F0636ZZ Communicative/Cognitive Integration Skills Treatment of Neurological System - Whole Body (ICD-10-PCS; principal; 2017-07-20)
PROC: F07M3ZZ Motor Function Treatment of Musculoskeletal System - Whole Body (ICD-10-PCS; principal; 2017-07-20)
PROC: F08Z7ZZ Vocational Activities and Functional Community or Work Reintegration Skills Treatment (ICD-10-PCS; principal; 2017-07-20)
DX: I69.398 Other sequelae of cerebral infarction (principal); G40.409 Other generalized epilepsy and epileptic syndromes, not intractable, without status epilepticus; R49.0 Dysphonia; I69.351 Hemiplegia and hemiparesis following cerebral infarction affecting right dominant side; I69.320 Aphasia following cerebral infarction; I69.391 Dysphagia following cerebral infarction; I69.318 Other symptoms and signs involving cognitive functions following cerebral infarction; I82.B12 Acute embolism and thrombosis of left subclavian vein; Z79.01 Long term (current) use of anticoagulants; Z79.82 Long term (current) use of aspirin; R32 Unspecified urinary incontinence; Q21.1 Atrial septal defect; F32.9 Major depressive disorder, single episode, unspecified; E03.9 Hypothyroidism, unspecified; Z21 Asymptomatic human immunodeficiency virus [HIV] infection status
CPT/HCPCS: 92507-GN; 92523-GN; 92526-GN; 92610-GN; 97110-GP; 97112-GO; 97112-GP; 97116-GP; 97162-GP; 97166-GO; 97530-GO; 97530-GP; 97535-GO; J1650